=== PATIENT | female | born 1955 | race African-American/Black ===

== ENCOUNTER 2024-12-27 08:30 | Outpatient (CLI) | payer MEDICARE, SELFPAY ==
--- NOTE | 2024-12-27 08:30 | ECG_ITS ---
Test Date: 2024-12-27 09:21:19 Measurements Intervals [place] Rate: 80 P: 68 [place]: 127 QRS: 33 QRSD: 74 T: 220 QT: 360 QTc: 417 Interpretive Statements SINUS RHYTHM NONSPECIFIC ST & T-WAVE ABNORMALITY No previous ECG available for comparison Electronically Signed On 12-27-2024 10:29:15 CDT by Janey Macias M.D.
--- OUTSIDE RECORDS SUMMARY | 2024-12-27 08:54 | XMS_ITS | Clinical Summary ---
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 [phone] Michelle CaoW Unavailable Allergies No known active allergies Medications OneTouch Verio test strips strip Active OneTouch Verio Flex meter misc Active OneTouch Delica Plus Lancet 33 gauge misc 024 Active blood-glucose meter,continuous ([employer] G7 Die Holder) mis 1 each continuously 1 each 024 Active aspirin 81 mg chewable tablet Take 1 tablet (81 mg total) by mouth daily 90 tablet 2 Active glucagon 1 mg/0.2 mL auto-injector Inject 1 each under the skin daily as needed (low blood sugar) 0.6 mL 1 Active multivitamin with minerals tablet Take 1 tablet by mouth daily Active ferrous sulfate 325 mg (65 mg of elemental iron) tabletIndication s:Iron Deficiency Anemia Take 1 tablet (325 mg total) by mouth daily with breakfast 90 tablet 3 024 2024 Active furosemide (LASIX) 40 mg tablet TAKE 1 TABLET (40 MG TOTAL) BY MOUTH DAILY NEEDED (LOWER EXTREMITY SWELLING) 90 tablet 1 025 Active buPROPion XL (WELLBUTRIN XL) 150 mg 24 hr tablet Take 1 tablet (150 mg total) by mouth daily 90 tablet 1 025 Active calcitRIOL (ROCALTROL) 0.25 mcg capsuleIndicatio ns:Hyperparathyr oidism Secondary to Chronic Renal Failure Take 1 capsule (0.25 mcg total) by mouth 3 (three) times a week 36 capsule 025 2025 Active cholecalciferol (VITAMIN D-3) 2000 unit capsule Take 1 capsule (2,000 Units total) by mouth daily 90 capsule 3 025 2025 Active metoclopramide (REGLAN) 5 mg tablet Take 2 tablets (10 mg total) by mouth 2 (two) times a day 360 tablet 1 Active folic acid (FOLVITE) 1 mg tablet Take 1 tablet (1 mg total) by mouth daily 90 tablet 1 025 Active atorvastatin (LIPITOR) 80 mg tabletIndication s:Type 2 diabetes mellitus with hyperlipidemia (HCC) Take 1 tablet (80 mg total) by mouth daily 90 tablet 4 025 2025 Active spironolactone (ALDACTONE) 25 mg tabletIndication s:Chronic diastolic congestive heart failure (HCC) Take 2 tablets (50 mg total) by mouth 2 (two) times a day 360 tablet 1 025 Active acetaminophen (TYLENOL) 325 mg tabletIndication s:Fever,Pain Take 2 tablets (650 mg total) by mouth every 4 (four) hours as needed for pain, headaches or fever 025 Active amLODIPine (NORVASC) 10 mg tablet Take 1 tablet (10 mg total) by mouth daily 90 tablet 1 025 Active blood-glucose sensor ([employer] G7 Sensor) device APPLY ONE SENSOR TO SKIN EVERY 10 DAYS FOR BLOOD SUGAR MONITORING 5 each 3 025 Active sod sulf-pot chloride-mag sulf (Sutab) 1.479-0.188- 0.225 gram tabletIndication s:Screening for colon cancer Take as directed by GI office for colonoscopy prep. Stay well hydrated. 24 tablet 025 Active Additional Information Patient not taking.Reported on 12/08/2024 dulaglutide (TRULICITY) 0.75 mg/0.5 mL pen injectorIndicati ons:cardiovascul ar disease associated with T2DM,type 2 diabetes mellitus Inject 0.5 mL (0.75 mg total) under the skin every 7 days 6 mL 1 Active insulin lispro (HumaLOG, ADMELOG) 100 unit/mL pen for injectionIndicat ions:type 2 diabetes mellitus Sliding scale for elevated blood sugars. Use as needed. For blood sugar less than/equal to 70 treat hypoglycemia; 71-119 No additional insulin; 120-150 give 2 units; 151-200 give 4 units; 201-250 give 6 units; 251-300 give 8 units; 301-350 give 10 units; Greater than 351 give 12 units. 3 mL 1 Active polyethylene glycol (MIRALAX) 17 gram/dose bulk powder Take 17 g by mouth daily 1530 g 3 025 2025 Active Additional Information Patient taking differently:17 g oralDaily PRN, Reported on 12/08/2024 sertraline (ZOLOFT) 100 mg tablet Take 1 tablet (100 mg total) by mouth daily 90 tablet Active doxazosin (CARDURA) 8 mg tablet Take 1 tablet (8 mg total) by mouth nightly 90 tablet 3 025 2025 Active miscellaneous medical supply miscIndications: History of fall,Urinary incontinence, unspecified type,Current severe episode of major depressive disorder without psychotic features without prior episode (HCC),Cognitive impairment,Decre ased social interaction,Hist ory of CVA (cerebrovascular accident),Genera lized weakness,Depende nt for wheelchair mobility,Frailty ,Moderate protein-calorie malnutrition Sit to stand lift 1 each Active metoprolol tartrate (LOPRESSOR) 50 mg immediate release tablet TAKE 1 TABLET BY MOUTH TWICE A DAY 60 tablet 1 Active gabapentin (NEURONTIN) 300 mg capsuleIndicatio ns: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) TAKE 1 CAPSULE BY MOUTH EVERY DAY AT NIGHT 30 capsule 1 Active sertraline (ZOLOFT) 100 mg tablet Take 1 tablet (100 mg total) by mouth daily 90 tablet 1 025 2024 Discontinued( Reorder) nystatin cream Apply topically 2 (two) times a day APPLY TO AFFECTED AREA 2024 Discontinued gabapentin (NEURONTIN) 300 mg capsuleIndicatio ns:Neuropathic Pain Take 1 capsule (300 mg total) by mouth nightly 30 capsule 2 025 2024 Discontinued doxazosin (CARDURA) 4 mg tablet Take 1 tablet (4 mg total) by mouth nightly 025 2024 Discontinued( Reorder) senna-docusate (PERICOLACE) 8.6-50 mg Take 2 tablets by mouth daily X 3 days and then 1 tablet x 5 days 11 tablet 025 2024 Discontinued glycerin suppository Insert 1 suppository into the rectum daily as needed for constipation 20 suppository 025 2024 Discontinued metoprolol tartrate (LOPRESSOR) 50 mg immediate release tablet TAKE 1 TABLET BY MOUTH TWICE A DAY 60 tablet 1 025 2024 Discontinued linaCLOtide (Linzess) 145 mcg capsuleIndicatio ns:chronic idiopathic constipation Take 1 capsule (145 mcg total) by mouth daily 90 capsule 1 [address] (CYMBALTA) 30 mg capsuleIndicatio ns: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 Continue healthy lifestyle to maintain. Poor appetite 12/08/2024 Assessment & Plan (12/09/2024 5:31 PM CDT): Continue Ensure shakes 3-4 times daily Decreased social interaction 10/21/2024 Assessment & Plan (12/09/2024 5:31 PM CDT): The patient requires a Clemente or similar lift device due to debility related to history of fall and generalized weakness. Patient requires lift device for transfers between bed, chair, wheelchair, and/or commode and would be confined to bed without the use of a lift. Constipation 09/21/2024 Assessment & Plan (12/06/2024 3:20 PM CDT): Was having complaints of chronic constipation was seen by primary care physician who started her on daily MiraLax. She was then also sent a prescription for 145 mcg of daily Linzess but daughter who was present states that she has not started her on medication has the MiraLax has been working out well. Currently having a daily soft formed stool. Previous colonoscopy performed on 10/05/2024 showed a tubular adenoma in the transverse colon, diverticulosis, internal hemorrhoids. 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 Recommended repeat colonoscopy in 5 years -Repeat colonoscopy due September 2029 Body mass index (BMI) of 22.0-22.9 in adult 03/2024 Controlled type 2 diabetes with neuropathy 08/29 Assessment & Plan (12/09/2024 5:30 PM CDT): Chronic and stable Continue gabapentin 300 mg nightly Assessment & Plan (10/03/2024 6:54 PM CDT): Chronic and stable Continue gabapentin 300 mg nightly Assessment & Plan (08/29/2024 8:11 AM CDT): Chronic and stable Continue gabapentin 300 mg nightly Frailty 08/29/2024 Assessment & Plan (12/09/2024 5:30 PM CDT): The patient requires a Clemente or similar lift device due to debility related to history of fall and generalized weakness. Patient requires lift device for transfers between bed, chair, wheelchair, and/or commode and would be confined to bed without the use of a lift. 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 Patient requires lift device for transfers between bed, chair, wheelchair, and/or commode and would be confined to bed without the use of a lift. Subclinical hypothyroidism 08/29/2024 Assessment & Plan (12/09/2024 5:30 PM CDT): Will continue to monitor Assessment & Plan (08/29/2024 8:22 AM CDT): Will continue to monitor Moderate protein-calorie malnutrition 05/12/2024 Assessment & Plan (12/09/2024 5:31 PM CDT): Continue Ensure shakes 3-4 times daily Monocytosis 05/10/2024 Assessment & Plan (05/10/2024 7:00 PM CLINICAL EDUCATION ASSISTANT): Concerning for possible new infection with left shift. Patient unable to provide much information except for reporting that she has emesis and vomiting of green bile. No other clinical findings on exam, abdomen not distended or painful/tender to palpation. We will check urine culture, blood culture. Repeat labs in a.m., if etiology remains unclear, may need to consider abdominal CT Nursing documented large BM on 05/09 Unintentional weight loss 05/06/2024 Assessment & Plan (05/06/2024 7:41 PM CLINICAL EDUCATION ASSISTANT): Patient being followed by registered dietitian, patient is at risk for malnutrition and has noted to have a 7.34% weight loss since admission. Patient was not well coming of any recommendations from dietitian. Is typically eating less than 50% of her meals, is taking 1 Nepro per day. Hyperparathyroidism 04/05/2024 Assessment & Plan (12/09/2024 5:29 PM CDT): Managed by Nephrology Currently on calcitriol 0.25 mcg 3 times daily and vitamin D3 2000 IU daily Assessment & Plan (10/03/2024 6:54 PM CDT): Managed by Nephrology Currently on calcitriol 0.25 mcg 3 times daily and vitamin D3 2000 IU daily Assessment & Plan (08/29/2024 7:55 AM CDT): Managed by Nephrology Currently on calcitriol 0.25 mcg 3 times daily and vitamin D3 2000 IU daily Current severe episode of ma zayda depressive disorder without psychotic features without prior episode 03/15/2024 Assessment & Plan (12/09/2024 5:29 PM CDT): Chronic and stable Continue Wellbutrin 150 mg daily Continue sertraline 100 mg daily The patient requires a Clemente or similar lift device due to debility related to history of fall and generalized weakness. Patient requires lift device for transfers between bed, chair, wheelchair, and/or commode and would be confined to bed without the use of a lift. Assessment & Plan (10/26/2024 12:16 PM CDT): Chronic and stable on Wellbutrin 150 mg daily and sertraline 100 mg daily Wheelchair ordered Assessment & Plan (10/03/2024 6:54 PM CDT): Chronic and stable on Wellbutrin 150 mg daily and sertraline 100 mg daily Follow-up 3 months Assessment & Plan (08/29/2024 7:56 AM CDT): Chronic and stable on Wellbutrin 150 mg daily and sertraline 100 mg daily. Assessment & Plan (05/09/2024 5:04 PM CLINICAL EDUCATION ASSISTANT): Patient remains withdrawn and depressed, we will increase sertraline to 100 mg daily. Continue supportive care, speech therapy. Assessment & Plan (03/15/2024 8:51 AM CLINICAL EDUCATION ASSISTANT): Start sertraline 25 mg nightly Medication and side effects reviewed Consider therapy Follow-up in 1 month Generalized weakness 02/16/2024 Assessment & Plan (12/09/2024 5:28 PM CDT): The patient requires a Clemente or similar lift device due to debility related to history of fall and generalized weakness. Patient requires lift device for transfers between bed, chair, wheelchair, and/or commode and would be confined to bed without the use of a lift. Assessment & Plan (10/26/2024 12:16 PM CDT): Wheelchair ordered Assessment & Plan (10/21/2024 12:12 PM CDT): Continue physical therapy Assessment & Plan (10/03/2024 6:54 PM CDT): Refer to home health physical therapy Assessment & Plan (04/23/2024 8:28 AM CLINICAL EDUCATION ASSISTANT): I endorse admission to alf care. The patient is at risk of injury, illness and a requirement for a higher level of care without this service. The patient needs assistance from the nurses and care team for all activities of daily living including dressing, hygeine of person and toilet, safe transfer and mobility, dietary needs, medication administration, and grooming. The patient will need physical and occupational therapy to progress to a safer level of care. Assessment & Plan (02/16/2024 10:16 AM CLINICAL EDUCATION ASSISTANT): Refer to PT/OT History of CVA (cerebrovascular accident) 2023 Assessment & Plan (12/09/2024 5:28 PM CDT): The patient requires a Clemente or similar lift device due to debility related to history of fall and generalized weakness. Patient requires lift device for transfers between bed, chair, wheelchair, and/or commode and would be confined to bed without the use of a lift. Assessment & Plan (10/26/2024 12:16 PM CDT): Wheelchair ordered Assessment & Plan (02/16/2024 10:16 AM CLINICAL EDUCATION ASSISTANT): Appointment with Neurology on 03/09 History of fall 02/12/2024 Assessment & Plan (12/08/2024 2:05 PM CDT): The patient requires a Clemente or similar lift device due to debility related to history of fall and generalized weakness. Patient requires lift device for transfers between bed, chair, wheelchair, and/or commode and would be confined to bed without the use of a lift. Assessment & Plan (10/26/2024 12:16 PM CDT): The patient requires a wheelchair due to debility related to comorbidities that limits their ability to complete activities of daily living such as dressing, cooking, and bathing in a reasonable time frame. The patient has sufficient upper extremity function to safely propel a wheelchair. The patient is willing and able to use a wheelchair. The patient's mobility limitation can't be resolved by an appropriately fitted cane or walker due to severe weakness and increased risk of falls. The patient's home can accommodate a wheelchair. Assessment & Plan (10/03/2024 6:54 PM CDT): Refer to home health physical therapy Assessment & Plan (05/03/2024 2:03 PM CLINICAL EDUCATION ASSISTANT): Pt with documented fall over the weekend. Pt denies pain or complaints. Monitor Assessment & Plan (02/12/2024 1:12 PM CLINICAL EDUCATION ASSISTANT): Fall today trying to get to bathroom byself. No injury. Fall prec/monitoring in place. Anemia 02/02/2024 Assessment & Plan (12/09/2024 5:26 PM CDT): Continue iron supplements Assessment & Plan (10/03/2024 6:53 PM CDT): Continue iron supplements Labs ordered Assessment & Plan (05/03/2024 2:05 PM CLINICAL EDUCATION ASSISTANT): Overall stable, H/H 9.2/28.9 Assessment & Plan (04/29/2024 1:48 PM CLINICAL EDUCATION ASSISTANT): Hemoglobin with slight decline from admission but overall stable, H&H 10.9/34.0 Assessment & Plan (04/23/2024 5:04 PM CLINICAL EDUCATION ASSISTANT): Hemoglobin lower but stable. H&H 10.7/34.1. We will continue to monitor, patient may need an outpatient GI follow-up. Assessment & Plan (02/02/2024 4:42 PM CLINICAL EDUCATION ASSISTANT): This is in part secondary to her chronic kidney disease stage 4. Also, her attending hospitalist has advised outpatient follow up that may or may not include colonoscopy. I have so advised her daughter. She explains that the primary physician had ordered a Cologuard testing prior to hospitalization, the daughter has a kit in hand, and plans to complete this once discharge. She understands the importance of following up with the primary care physician on this issue. Cognitive impairment 02/02/2024 Assessment & Plan (12/09/2024 5:27 PM CDT): Wheelchair bound Caregiver dependent Assessment & Plan (10/26/2024 12:16 PM CDT): Wheelchair ordered Assessment & Plan (10/21/2024 12:12 PM CDT): Refer to psychiatry Refer to neurology Assessment & Plan (10/03/2024 6:53 PM CDT): Managed by Neurology Assessment & Plan (08/29/2024 8:00 AM CDT): Managed by Neurology Assessment & Plan (05/06/2024 7:42 PM CLINICAL EDUCATION ASSISTANT): MOCA 09/22 Assessment & Plan (02/02/2024 4:43 PM CLINICAL EDUCATION ASSISTANT): Per speech therapy today's [place] score was 9 / 30. Daughter notes that her cognitive impairment has been present since the stroke. Chronic diastolic congestive heart failure 01/23 Assessment & Plan (12/09/2024 5:26 PM CDT): Managed by cardiology Chronic and stable on amlodipine 10 mg daily, Lasix 40 mg daily, spironolactone 25 mg daily, metoprolol 50 mg twice daily, and doxazosin 2 mg nightly. Assessment & Plan (10/03/2024 6:52 PM CDT): Managed by cardiology Chronic and stable on amlodipine 10 mg daily, Lasix 40 mg daily, spironolactone 25 mg daily, metoprolol 50 mg twice daily, and doxazosin 2 mg nightly. Follow up in 3 months Assessment & Plan (08/29/2024 8:01 AM CDT): Managed by cardiology Chronic and stable on amlodipine 10 mg daily, Lasix 40 mg daily, spironolactone 25 mg daily, metoprolol 50 mg twice daily, and doxazosin 2 mg nightly. Assessment & Plan (05/09/2024 5:03 PM CLINICAL EDUCATION ASSISTANT): Remains compensated, continue to hold spironolactone. Renal function and electrolytes have improved with IV fluids. Continue to monitor Assessment & Plan (04/23/2024 5:05 PM CLINICAL EDUCATION ASSISTANT): Currently compensated. We will place Aldactone on hold due to renal dysfunction. Continue Lasix p.r.n., continue to monitor electrolytes, renal function, weight Assessment & Plan (04/23/2024 8:27 AM CLINICAL EDUCATION ASSISTANT): This is currently stable. We will monitor vital signs. We will continue 40 mg furosemide daily p.r.n., metoprolol, and Aldactone. Assessment & Plan (02/16/2024 10:13 AM CLINICAL EDUCATION ASSISTANT): Chronic and stable Appointment with Cardiology on 02/24 Continue Coreg 25 mg twice daily Continue Jardiance 25 mg daily Continue furosemide 80 mg daily Continue spironolactone 25 mg daily Assessment & Plan (02/12/2024 1:11 PM CLINICAL EDUCATION ASSISTANT): Cardiology appt r/s with COVID +. She is compensated. Continue Jardiance, Coreg, Statin, ASA, Norvasc, Spirolactone. Lasix held with elevated GABRIELA. Remains compensated without. Repeat labs 02/15. Assessment & Plan (02/03/2024 12:35 PM CLINICAL EDUCATION ASSISTANT): Compensated. Continue Lasix, Spirolactone, Atorvastatin, Coreg. Assessment & Plan (02/02/2024 4:39 PM CLINICAL EDUCATION ASSISTANT): This is subacute but now stable. Continue carvedilol, atorvastatin, furosemide 80 mg daily, Aldactone 25 mg daily and monitor follow up labs Assessment & Plan (01/26/2024 8:24 AM CDT): Appointment with Cardiology 03/11/2024 Cardiac murmur 01/02/2024 Assessment & Plan (01/26/2024 8:23 AM CDT): Chest x-ray ordered Last TTE 01/02/2024 Appointment with Cardiology 03/11/2024 Assessment & Plan (01/02/2024 1:02 PM CDT): Refer to cardiology EKG and TTE ordered Urinary retention 12/11/2023 Assessment & Plan (10/03/2024 6:52 PM CDT): Urodynamic results printed for patient is started Follow up with Urology Assessment & Plan (04/26/2024 4:35 PM CLINICAL EDUCATION ASSISTANT): Luna in place, needed to be replaced today after having clogged with hematuria. Since change has been draining well with dark red urine. We will follow-up H&H in a.m., we will hold Lovenox but continue aspirin. Patient recently had a voiding trial performed by Urology as an outpatient on 04/12/2024 was unsuccessful, recommended continuing Luna catheter and follow-up for urodynamic studies. This is scheduled on 05/13/[address] [facility], would recommend keeping this appointment. We will continue Flomax Assessment & Plan (04/23/2024 8:28 AM CLINICAL EDUCATION ASSISTANT): She has an order to keep her Luna pending consult. This will be continued Assessment & Plan (02/16/2024 10:14 AM CLINICAL EDUCATION ASSISTANT): Appointment with Urology on 03/04 Continue Flomax 0.4 mg daily Assessment & Plan (02/13/2024 1:00 PM CLINICAL EDUCATION ASSISTANT): Voiding on own with mild retention not requiring ISC. Continue Flomax. Assessment & Plan (02/12/2024 1:05 PM CLINICAL EDUCATION ASSISTANT): Is voiding on her own. Continue Flomax. Assessment & Plan (02/09/2024 12:54 PM CLINICAL EDUCATION ASSISTANT): Patient removed luna herself this am. Denies pain. Bulb intact. Will start voiding trial & monitor. Assessment & Plan (02/05/2024 12:47 PM CLINICAL EDUCATION ASSISTANT): Failed voiding trial, increased Flomax to 0.8mg daily. Consider repeat voiding trial next week. Assessment & Plan (02/04/2024 2:59 PM CLINICAL EDUCATION ASSISTANT): RN reports urinary incontinence, bladder scan greater than 400 mL retention. Luna catheter anchored. Continue scripted tamsulosin Assessment & Plan (02/03/2024 12:29 PM CLINICAL EDUCATION ASSISTANT): Luna in place with Flomax. Pending labs will consider voiding trial later this week. Type 2 diabetes mellitus wit h hyperglycemia, with long-term current use of insulin 11/18/2023 Assessment & Plan (12/09/2024 5:26 PM CDT): Pending referral to endocrinology Current A1c 8.2 Continue insulin lispro with meals as needed Start Trulicity 0.75 mg weekly Medication and side effects reviewed Low carb diet, count calories, exercise reviewed, blood glucose monitoring A1C goal is less than 8. Optho/ reviewed Dental/ reviewed Pod/ PN/ Foot exam/ reviewed Discussed routine labs; A1c, albumin/reatine ratio, GFR Visit [email or web address] for more information regarding diabetes diet and more. Assessment & Plan (10/26/2024 12:17 PM CDT): Pending referral to endocrinology Current A1c 8.2 Continue insulin lispro with meals as needed Start Trulicity 0.75 mg weekly Medication and side effects reviewed Low carb diet, count calories, exercise reviewed, blood glucose monitoring A1C goal is less than 8. Optho/ reviewed Dental/ reviewed Pod/ PN/ Foot exam/ reviewed Discussed routine labs; A1c, albumin/reatine ratio, GFR Visit [email or web address] for more information regarding diabetes diet and more. Assessment & Plan (10/21/2024 12:12 PM CDT): Refer to endocrinology Current A1c 8.2 Continue insulin lispro with meals as needed Start Trulicity 0.75 mg weekly Medication and side effects reviewed Low carb diet, count calories, exercise reviewed, blood glucose monitoring A1C goal is less than 8. Optho/ reviewed Dental/ reviewed Pod/ PN/ Foot exam/ reviewed Discussed routine labs; A1c, albumin/reatine ratio, GFR Visit [email or web address] for more information regarding diabetes diet and more. Follow up in 3 months Assessment & Plan (08/29/2024 8:17 AM CDT): Diet-controlled Last A1c 7.1 on 07/24/2024 Lantus discontinued 06/2024 due to weight loss and decreased dietary intake Jardiance discontinued due to UTI Assessment & Plan (05/11/2024 10:45 AM CLINICAL EDUCATION ASSISTANT): A1c 11.3, blood sugars ranging from 123 to 244. Patient has had minimal use of sliding scale insulin. Continue Jardiance 25 mg daily, Lantus will remain on hold Assessment & Plan (04/26/2024 4:28 PM CLINICAL EDUCATION ASSISTANT): A1c 11.3, Accu-Cheks ranging from 117-282. A.m. blood sugars controlled., but elevate during the day. Previously patient taking Jardiance 25 mg daily, had also been on routine Lantus. Glargine has been on hold since 04/24/2024 for hypoglycemia. We will restart Jardiance, monitor blood sugars, continue sliding scale insulin with meals for now. Assessment & Plan (04/23/2024 8:27 AM CLINICAL EDUCATION ASSISTANT): Follow up labs will be ordered. We will continue insulin glargine and sliding scale insulin lispro in the short term. Assessment & Plan (04/23/2024 8:22 AM CLINICAL EDUCATION ASSISTANT): We will continue scripting her insulin glargine and sliding scale insulin. The nurses will monitor point of care glucose Assessment & Plan (02/16/2024 10:09 AM CLINICAL EDUCATION ASSISTANT): Lantus was discontinued during hospitalization Continue Jardiance 25 mg daily Continue insulin lispro 3 times daily with meals Appointment with endocrinology on 03/11 Labs ordered Assessment & Plan (02/13/2024 1:00 PM CLINICAL EDUCATION ASSISTANT): A1c 6.9. Patient taking Lantus 10u nightly, continue & dc SSI at discharge. Continue Jardiance. FU with PCP. Assessment & Plan (02/12/2024 1:08 PM CLINICAL EDUCATION ASSISTANT): BS stable, 199-211. Continue Lantus with SSI. Assessment & Plan (02/09/2024 1:02 PM CLINICAL EDUCATION ASSISTANT): Orginally hypoglycemic on admission. Insulin adjusted. She denies she was taking inuslin at home but does not appear new med. BS now elevated. 160-360. Currently only on SSI. On Lantus 10u qhs. Restart Jardiance 25mg daily for CHF not glycemic control & Lantus, monitor. Assessment & Plan (02/03/2024 12:31 PM CLINICAL EDUCATION ASSISTANT): A1c 6.9. BS 155-239. Continue on SSI. Pending labs may restart Jardiance. Assessment & Plan (02/02/2024 4:39 PM CLINICAL EDUCATION ASSISTANT): This is currently stable. Follow up labs were ordered. Continue insulin lispro by sliding scale Assessment & Plan (01/26/2024 8:23 AM CDT): Chronic and stable on current medication regimen A1c 6.9 Continue current medication regimen Assessment & Plan (11/18/2023 3:06 PM CDT): Chronic and improving Appointment with endocrinology on 12/29 Continue current medication regimen Refills sent to pharmacy Continue monitoring blood glucose Continue to check feet daily Recommend annual vision exams with retinal screening Glucagon sent to pharmacy. Reviewed medication and appropriate use. Follow-up in 3 months Urinary incontinence 10/16/2023 Assessment & Plan (12/09/2024 5:24 PM CDT): Urogynecology plans for permanent indwelling urinary catheter Assessment & Plan (10/21/2024 12:10 PM CDT): Sign release of information to obtain urology records Assessment & Plan (10/03/2024 6:52 PM CDT): Urodynamic results printed for patient is started Follow up with Urology Go online to order aeroflow incontinence supplies Assessment & Plan (08/29/2024 8:02 AM CDT): Pending referral to Urology Urodynamics report in patient's chart under media tab dated 06/03/2024 Assessment & Plan (02/16/2024 10:14 AM CLINICAL EDUCATION ASSISTANT): Appointment with urology 03/04 Pelvic floor physical therapy completed Assessment & Plan (11/18/2023 2:58 PM CDT): Managed by Urology Assessment & Plan (10/16/2023 2:37 PM CDT): Refer to urology Please send a [facility] message with the medication and dosage the patient is currently taking for urinary incontinence Follow-up in 1 month Unspecified age-related cataract 06/27/2020 Overview (10/16/2023): The patient was examined, the H and P and other relevant medical records were reviewed. No changes that are significant for the planned course of treatment have occurred. HOLLY SMITH MD, 06/27/2020, 7:48 AM CDT The patient was examined, the H and P and other relevant medical records were reviewed. No changes that are significant for the planned course of treatment have occurred. HOLLY SMITH MD, 07/11/2020, 7:59 AM CDT Hypertension associated with type 2 diabetes marianela litus 02/22/2014 Assessment & Plan (12/09/2024 5:22 PM CDT): Managed by cardiology Chronic and controlled Continue amlodipine 10 mg daily, Lasix 40 mg daily, spironolactone 25 mg daily, metoprolol 50 mg twice daily, and doxazosin 2 mg nightly. Assessment & Plan (10/26/2024 12:17 PM CDT): Chronic and controlled Continue amlodipine 10 mg daily, Lasix 40 mg daily, spironolactone 25 mg daily, metoprolol 50 mg twice daily, and doxazosin 2 mg nightly. Assessment & Plan (10/21/2024 12:06 PM CDT): Chronic and controlled Continue amlodipine 10 mg daily, Lasix 40 mg daily, spironolactone 25 mg daily, metoprolol 50 mg twice daily, and doxazosin 2 mg nightly. Follow up in 3 months Assessment & Plan (10/03/2024 6:49 PM CDT): Chronic and controlled Continue amlodipine 10 mg daily, Lasix 40 mg daily, spironolactone 25 mg daily, metoprolol 50 mg twice daily, and doxazosin 2 mg nightly. Follow up in 3 months Assessment & Plan (08/29/2024 8:04 AM CDT): Chronic and controlled Continue amlodipine 10 mg daily, Lasix 40 mg daily, spironolactone 25 mg daily, metoprolol 50 mg twice daily, and doxazosin 2 mg nightly. Assessment & Plan (05/11/2024 10:44 AM CLINICAL EDUCATION ASSISTANT): Urgency - will give additional dose of lopressor 25mg x 1, increased routine dose to 50mg BID. Continue norvasc.Recheck vitals, may need to consider additional agent if remains uncontrolled. Assessment & Plan (05/10/2024 7:04 PM CLINICAL EDUCATION ASSISTANT): Verbal report from nurse indicates that blood pressure had improved from this a.m. after a.m. medication dosing. No emesis yet this a.m.. Continue amlodipine 10 mg daily, Lasix 40 mg daily, metoprolol 25 mg b.i.d. Assessment & Plan (05/09/2024 5:02 PM CLINICAL EDUCATION ASSISTANT): BP stable, continue metoprolol 25 mg b.i.d., amlodipine 10 mg daily, Lasix 40 mg daily p.r.n.. Spironolactone remain on hold. Assessment & Plan (04/26/2024 4:25 PM CLINICAL EDUCATION ASSISTANT): Blood pressure is generally well controlled, continue amlodipine 10 mg daily, Lasix 40 mg daily p.r.n., metoprolol 25 mg b.i.d.. Spironolactone on hold Assessment & Plan (04/23/2024 8:26 AM CLINICAL EDUCATION ASSISTANT): This is chronic and stable. Continue to monitor serial vital signs continue scripting of amlodipine, metoprolol, Aldactone Assessment & Plan (02/16/2024 10:13 AM CLINICAL EDUCATION ASSISTANT): Chronic and stable Appointment with Cardiology on 02/24 Continue Coreg 25 mg twice daily Continue Jardiance 25 mg daily Continue furosemide 80 mg daily Continue spironolactone 25 mg daily Assessment & Plan (02/02/2024 4:38 PM CLINICAL EDUCATION ASSISTANT): This is chronic and stable. Continue amlodipine 5 mg daily, carvedilol 25 mg b.i.d., Lasix, and Aldactone 25 mg daily Assessment & Plan (01/26/2024 8:27 AM CDT): Chronic and stable on current medication regimen Continue amlodipine as prescribed Goal blood pressure is less than 140/90. Recommend DASH diet to reduce sodium/salt in diet. Recommend 150 min of moderate aerobic exercise weekly as tolerated. Visit www.heart.org for more information on diet and lifestyle to improve blood pressure for heart health. Assessment & Plan (11/18/2023 3:07 PM CDT): Chronic and stable on current medication regimen Continue amlodipine as prescribed Goal blood pressure is less than 140/90. Recommend DASH diet to reduce sodium/salt in diet. Recommend 150 min of moderate aerobic exercise weekly as tolerated. Visit www.heart.org for more information on diet and lifestyle to improve blood pressure for heart health. F/u in 3 months Assessment & Plan (10/16/2023 2:37 PM CDT): Currently chronic and stable Continue current regimen as prescribed. Goal blood pressure is less than 140/90. Recommend DASH diet to reduce sodium/salt in diet. Recommend 150 min of moderate aerobic exercise weekly as tolerated. Visit www.heart.org for more information on diet and lifestyle to improve blood pressure for heart health. Chronic kidney disease, stage 4 (severe) Overview (10/16/2023): stage 4 Assessment & Plan (12/09/2024 5:23 PM CDT): Managed by Nephrology Chronic and stable Jardiance was discontinued 02/2024 due to urinary tension and hypoglycemia Assessment & Plan (10/03/2024 6:50 PM CDT): Managed by Nephrology Assessment & Plan (08/29/2024 8:10 AM CDT): Assessment & Plan (05/11/2024 10:46 AM CLINICAL EDUCATION ASSISTANT): Relatively unchanged, BUN/creatinine 22/1.53, GFR 37 Assessment & Plan (05/03/2024 2:04 PM CLINICAL EDUCATION ASSISTANT): Renal function about at baseline, Bun/Cr 20/1.59, GFR 35. Continue to monitor Assessment & Plan (04/29/2024 1:48 PM CLINICAL EDUCATION ASSISTANT): Overall stable, BUN/creatinine 35/1.64 with a GFR of 34 Assessment & Plan (04/26/2024 4:29 PM CLINICAL EDUCATION ASSISTANT): Labs were not performed as ordered, we will follow-up in a.m. Assessment & Plan (04/23/2024 5:02 PM CLINICAL EDUCATION ASSISTANT): Renal function overall stable, BUN/creatinine 26/1.47 with a GFR of 39. Continue to monitor Assessment & Plan (04/23/2024 8:28 AM CLINICAL EDUCATION ASSISTANT): Follow up labs to be ordered Assessment & Plan (02/13/2024 1:01 PM CLINICAL EDUCATION ASSISTANT): Stable. Lasix dc with elevated Cr. CHF, CKD, Edema stable without. Continue routine monitoring with PCP. Assessment & Plan (02/09/2024 12:55 PM CLINICAL EDUCATION ASSISTANT): Cr improved. She has no signs of overload. Continue to hold Lasix. Repeat labs. Monitor. Assessment & Plan (02/05/2024 12:49 PM CLINICAL EDUCATION ASSISTANT): Cr mildly elevated. Will hold Lasix. Continue all other meds & monitor. Repeat labs 02/08. Assessment & Plan (02/03/2024 12:27 PM CLINICAL EDUCATION ASSISTANT): Labs pending 02/04. Assessment & Plan (01/02/2024 1:01 PM CDT): BMP ordered Assessment & Plan (11/18/2023 3:01 PM CDT): Managed by Nephrology Assessment & Plan (10/16/2023 2:37 PM CDT): Referred to nephrology Type 2 diabetes mellitus with hyperlipidemia Assessment & Plan (12/09/2024 5:24 PM CDT): Chronic and controlled Continue atorvastatin 80 mg daily Assessment & Plan (10/21/2024 12:10 PM CDT): Chronic and controlled Continue atorvastatin 80 mg daily Follow-up in 3 months Assessment & Plan (10/03/2024 6:51 PM CDT): Chronic and uncontrolled Continue atorvastatin 80 mg daily Consider Repatha Labs ordered Follow-up in 3 months Assessment & Plan (08/29/2024 8:09 AM CDT): Chronic and uncontrolled Increase to atorvastatin 80 mg daily Consider Repatha Resolved Problems Problem Noted Date Diagnosed Date Resolved Date Fecal impaction 10/26/2024 12/08/2024 Assessment & Plan (12/06/2024 3:20 PM CDT): Presented to ED on 10/21 with as she had not had a bowel movement for two weeks. Imaging showed prominent stool throughout colon. She was disimpacted and then started on laila Colace as well as MiraLax. Her daughter who was present with her now states that she is doing relatively well on daily dose of MiraLax. -Recommended to continue daily MiraLax Assessment & Plan (10/26/2024 12:19 PM CDT): Refer to gastroenterology Try [id number] normal saline enema and magnesium citrate Continue MiraLax and fiber supplements as previously recommended Follow up as needed Decreased frequency of bowel movements 10/21/2024 12/08/2024 Assessment & Plan (10/21/2024 12:14 PM CDT): Patient's family advised to take patient to the emergency department Labile blood glucose 10/21/2024 025 Decreased bowel sounds 10/21/202412/08 Assessment & Plan (10/21/2024 12:15 PM CDT): Patient's family advised to take patient to the emergency room Pressure injury of buttock, stage 2 10/03/2024 12/09/2024 Assessment & Plan (10/21/2024 12:14 PM CDT): Improving Continue home health Make sure to patient's position every 2 hours Assessment & Plan (10/03/2024 6:56 PM CDT): Refer to home health Rectal bleeding 09/21/2024 12/09/2024 Sepsis with acute renal fail ure without septic shock, due to unspecified organism, unspecified acute renal failure type 09/19/202401/2025 Hypoxemia 05/13/2024 12/09/2024 Stercoral colitis 05/13/2024 12/09/2024 Influenza A 05/12/2024 12/09/2024 Influenza 05/11/2024 12/09/2024 Urinary tract infection asso ciated with indwelling urethral catheter 04/29/2024 12/09/2024 Assessment & Plan (05/03/2024 2:10 PM CLINICAL EDUCATION ASSISTANT): Urine culture without growth. Antibiotics DC'd, catheter remains in place. No longer have hematuria or blood in diaper Assessment & Plan (04/29/2024 1:47 PM CLINICAL EDUCATION ASSISTANT): With significant hematuria. Patient has andreia blood coming out around catheter as well as in catheter - patient denies pain. Started on Keflex by emergency department, we will follow-up on urine culture. Encourage staff to monitor for clotting of catheter to avoid retention. Encourage p.o. fluid intake. Nausea and vomiting 04/23/2024 12/10/19 Assessment & Plan (05/11/2024 10:48 AM CLINICAL EDUCATION ASSISTANT): Exam is benign, with leukocytosis, WBC 17.8. Pt has had similar c/o in past with unrevealing workup. Will check UA, Blood cx, CT abd/pel. Influenza/COVID swab neg x 2 (pt with known exposure) Continue reglan 10mg BID, prn zofran. Assessment & Plan (05/10/2024 7:19 PM CLINICAL EDUCATION ASSISTANT): Previous workup for same symptoms was unrevealing, we will increase metoclopramide to 10 mg b.i.d., continue supportive IV fluid. Continue symptomatic Zofran. We will hold nonessential medications including folic acid, ferrous sulfate, multivitamin, vitamin-D. Assessment & Plan (04/23/2024 5:00 PM CLINICAL EDUCATION ASSISTANT): Now resolved, no leukocytosis patient was afebrile, amylase only mildly elevated, lipase within normal limits. GI symptoms have resolved, exam unrevealing. Currently doubt acute cholecystitis, possible biliary colic. Does have some constipation as well and concern for gastroparesis. We will start Reglan 5 mg b.i.d. continue to monitor for dehydration. Tolerated 1 L normal saline well Assessment & Plan (04/23/2024 8:21 AM CLINICAL EDUCATION ASSISTANT): Stat labs ordered to include a CBC, basic metabolic profile, amylase and lipase. IV of normal saline 83 cc/hour x1 L ordered. Given the known presence of cholelithiasis acute cholecystitis is currently the working diagnosis pending further development. Dehydration 04/23/2024 12/09/2024 Assessment & Plan (04/23/2024 8:22 AM CLINICAL EDUCATION ASSISTANT): Her urine output is reduced. She is not eating or drinking secondary to her nausea and vomiting. An IV of normal saline as ordered. We will also continue her scripting of ondansetron. Weakness 04/13/2024 12/08/2024 Elevated LFTs 04/13/2024 12/09/2024 Acute lower urinary tract infection 03/17/2024 04/23/2024 Vitamin D deficiency 02/16/2024 025 Assessment & Plan (08/29/2024 7:57 AM CDT): Continue [id number] vitamin-D 3 2000 IU daily Assessment & Plan (02/16/2024 10:15 AM CLINICAL EDUCATION ASSISTANT): Continue [id number] vitamin-D 3 5000 IU daily Labs ordered COVID-19 02/04/2024 12/09/2024 Assessment & Plan (02/13/2024 1:01 PM CLINICAL EDUCATION ASSISTANT): Completed Antiviral. Off Isolation 02/13. Assessment & Plan (02/12/2024 1:11 PM CLINICAL EDUCATION ASSISTANT): Sx remain mild and stable. Mucinex started 02/10 for congestion. Assessment & Plan (02/09/2024 12:56 PM CLINICAL EDUCATION ASSISTANT): Continue antiviral. Dx 02/03. Assessment & Plan (02/05/2024 12:49 PM CLINICAL EDUCATION ASSISTANT): Continue antiviral with monitoring. Denies sx. WBC elevated which is abnormal. Assessment & Plan (02/04/2024 3:00 PM CLINICAL EDUCATION ASSISTANT): I did not order Paxlovid because of her GFR. Her medical power of criminal attorney does request treatment. I have ordered molnupiravir x 5 days. Indwelling urinary catheter present 02/03/2024 02/12/2024 Acute kidney injury superimp osed on chronic kidney disease 01/27/2024 02/03/2024 Bilateral lower extremity edema 01/02/2024 02/03/2024 Assessment & Plan (01/26/2024 8:24 AM CDT): Improved Continue Lasix 20 mg daily Appointment with Cardiology 03/11/2024 Assessment & Plan (01/02/2024 1:02 PM CDT): Take furosemide 20 mg once daily for 5 days as prescribed BMP ordered Refer to cardiology EKG and TTE ordered Follow-up in 2 weeks Pain of left breast 01/02/2024 12/10/19 25 Assessment & Plan (01/02/2024 1:02 PM CDT): Diagnostic mammogram and ultrasound ordered for bilateral breasts Breast asymmetry 01/02/2024 12/09/2024 Assessment & Plan (01/02/2024 1:02 PM CDT): Diagnostic mammogram and ultrasound ordered for bilateral breasts Candidiasis, intertriginous 01/02/2024 12/09/2024 Assessment & Plan (01/26/2024 8:27 AM CDT): Improved Continue current treatment regimen Wash towards torso with Selsun blue shampoo Apply nystatin cream beneath breasts twice daily Apply nystatin powder over cream beneath breasts twice daily Keep area clean and dry Place a clean cotton T-shirt beneath the breasts Refrain from using heat pad Assessment & Plan (01/02/2024 1:07 PM CDT): Culture collected Take terbinafine 250 mg daily for 14 days Take ciprofloxacin 500 mg daily for 10 days Wash towards torso with Selsun blue shampoo Apply nystatin cream beneath breasts twice daily Apply nystatin powder over cream beneath breasts twice daily Keep area clean and dry Place a clean cotton T-shirt beneath the breasts Refrain from using heat pad Follow-up in 2 weeks Left upper extremity swelling 01/02/2024 12/09/2024 Assessment & Plan (02/16/2024 10:14 AM CLINICAL EDUCATION ASSISTANT): CTA of head and neck ordered Assessment & Plan (02/13/2024 1:01 PM CLINICAL EDUCATION ASSISTANT): Her discharging hospitalist notes chronic swelling of the left breast and left upper extremity. A previous outpatient workup for malignancy has been benign. The hospitalist has advised follow up with PCP post skilled care discharge for further evaluation that may or may not include a CT of the head and neck. The daughter is so advised and she endorses understanding. Assessment & Plan (02/02/2024 4:40 PM CLINICAL EDUCATION ASSISTANT): Her discharging hospitalist notes chronic swelling of the left breast and left upper extremity. A previous outpatient workup for malignancy has been benign. The hospitalist has advised follow up with PCP post skilled care discharge for further evaluation that may or may not include a CT of the head and neck. The daughter is so advised and she endorses understanding. Assessment & Plan (01/02/2024 1:09 PM CDT): Take furosemide 20 mg once daily for 5 days as prescribed BMP ordered Refer to cardiology EKG and TTE ordered Follow-up in 2 weeks Decreased muscle strength 11/18/2023 Assessment & Plan (11/18/2023 3:03 PM CDT): Refer to home PT/OT Memory loss 10/16/2023 02/03/2024 Assessment & Plan (11/18/2023 3:02 PM CDT): Place new referral to Neurology Cerebrovascular accident (CVA) 07/31/2020 02/16/2024 Assessment & Plan (02/03/2024 12:26 PM CLINICAL EDUCATION ASSISTANT): H/o. Continue PT/OT/ST. Flat affect. Pending cognition score from YOKER MACHINE OPERATOR. Assessment & Plan (02/02/2024 4:41 PM CLINICAL EDUCATION ASSISTANT): This is remote, currently stable. Continue aspirin, atorvastatin. Assessment & Plan (11/18/2023 3:02 PM CDT): Place new referral to Neurology Assessment & Plan (10/16/2023 2:36 PM CDT): Refer to neurology Request [facility] medical records from [facility] in [place], [place] Continue taking baby aspirin Poorly controlled diabetes mellitus 02/08/2014 02/09/2024 Assessment & Plan (10/16/2023 2:36 PM CDT): Increase Lantus to 10 units nightly Restart Jardiance 25 mg Reviewed medications and side effects Refer to endocrinology Dexcom G7 kit ordered F/u in 1 month Anxiety disorder 05/24/2013 10/21/2024 Assessment & Plan (02/16/2024 10:11 AM CLINICAL EDUCATION ASSISTANT): Appointment with Nephrology 03/30 Assessment & Plan (11/18/2023 2:59 PM CDT): Doing well without medication Hyperlipidemia 12/09/2024 Assessment & Plan (08/29/2024 8:03 AM CDT): Chronic and uncontrolled Increase to atorvastatin 80 mg daily Consider Repatha Assessment & Plan (04/23/2024 8:27 AM CLINICAL EDUCATION ASSISTANT): This is a chronic but stable problem. Continue scripting of Crestor, dietary will see and follow. Assessment & Plan (02/16/2024 10:08 AM CLINICAL EDUCATION ASSISTANT): Chronic and stable Continue atorvastatin 80 mg nightly Labs ordered Follow-up in 2 months Assessment & Plan (02/02/2024 4:38 PM CLINICAL EDUCATION ASSISTANT): This is chronic and stable continue atorvastatin 80 mg HS daily Assessment & Plan (11/18/2023 2:58 PM CDT): Repeat labs scheduled for 01/15 Continue current medication regimen Continue to make dietary improvement Follow-up in 3 months Assessment & Plan (10/16/2023 2:38 PM CDT): Labs ordered Continue taking Lipitor 80 mg daily as prescribed Visit www.heart.org for dietary information Follow-up in 1 month Encounters Date Type Department Care Team Description 12/21/2024 9:30 AM CDT Therapy [facility] OP Speech Therapy [address] [place] [id number] Shadia Clements, YOKER MACHINE OPERATOR Oropharyngeal dysphagia (Primary Dx); At risk for aspiration 12/10/[address] [place] [address] Yolanda Damon DNP 12/08/2024 1:30 PM CDT Office Visit [address] [place] [address] Yolanda Damon DNP Medicare annual wellness visit, subsequent (Primary Dx); History of fall; Dependent for wheelchair mobility; Type 2 diabetes mellitus with hyperglycemia, with long-term current use of insulin (HCC); Hypertension associated with type 2 diabetes mellitus (HCC); Type 2 diabetes mellitus with stage 4 chronic kidney disease, without long-term current use of insulin (HCC); 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); Type 2 diabetes mellitus with cardiac complication (HCC); Urinary incontinence, unspecified type; Chronic diastolic congestive heart failure (HCC); Hyperparathyroidism; Subclinical hypothyroidism; Anemia, unspecified type; Current severe episode of major depressive disorder without psychotic features without prior episode (HCC); At risk for aspiration; Cognitive impairment; Decreased social interaction; Generalized weakness; Frailty; Poor appetite; Moderate protein-calorie malnutrition; History of CVA (cerebrovascular accident); BMI 22.0-22.9, adult 12/06/2024 2:30 PM CDT Office Visit [facility] at [address] [phone] Shannan Fortune NP Personal history of adenomatous and serrated colon polyps (Primary Dx); Constipation, unspecified constipation type; Fecal impaction (HCC) 12/02/2024 3:15 PM CDT Office Visit [facility] at [address] [phone] Jass Nicolas MD Stage 4 chronic kidney disease (HCC) (Primary Dx); Hemiplegia and hemiparesis following cerebral infarction affecting right dominant side (I69.351); Essential hypertension; Type 2 diabetes mellitus with diabetic chronic kidney disease, unspecified CKD stage, unspecified whether skilled nursing insulin use (HCC); History of CVA (cerebrovascular accident); Incomplete bladder emptying; Secondary hyperparathyroidism 11/23/[address] [place] [phone] Yolanda Damon DNP 11/22/[address] [place] [phone] Yolanda Damon DNP set up established appointment within next week 11/22/[address] [place] [phone] Yolanda Damon DNP DME request 11/22/[address] [place] [phone] Yolanda Damon DNP Annual Wellness Visit 11/16/2024 2:30 PM CDT Office Visit [facility] [address] [place] [phone] Renaldo Armendariz MD Urinary tract infection associated with indwelling urethral catheter, subsequent encounter (Primary Dx); Chronic kidney disease, stage 4 (severe) (HCC); Type 2 diabetes mellitus with hyperglycemia, with long-term current use of insulin (HCC); Urinary retention; Dependent for wheelchair mobility; Cognitive impairment 11/15/2024 8:00 AM CDT Clinical Support [facility] [address] [facility] [address] [place] [address] Manuel Jaeger, PhD Major neurocognitive disorder (HCC) (Primary Dx); Generalized anxiety disorder; History of CVA (cerebrovascular accident); Current severe episode of major depressive disorder without psychotic features without prior episode (HCC); Mild cognitive impairment; Decreased social interaction 11/10/[address] [place] [address] Yolanda Damon DNP Medical Question/Miscellaneous 11/04/2024 Orders Only [address] [place] [address] Yolanda Damon DNP 11/02/2024 Telephone [facility] [address] [place] [address] [address] [place] [address] Unknown, Notinfile 11/02/[address] [place] [address] Yolanda Damon DNP [facility] RN request 11/02/2024 Orders Only [address] [place] [address] Yolanda Damon DNP Type 2 diabetes mellitus with hyperglycemia, with long-term current use of insulin (HCC) (Primary Dx); Labile blood glucose; Urinary incontinence, unspecified type; Cognitive impairment; History of fall; Generalized weakness; History of CVA (cerebrovascular accident); Pressure injury of skin of sacral region, unspecified injury stage 10/28/2024 4:00 PM CDT Office Visit [facility] [address] [facility] [address] [place] [address] Juliana Badillo NP Cerebrovascular accident (CVA), unspecified mechanism (HCC) (Primary Dx); Moderate dementia without behavioral disturbance, psychotic disturbance, mood disturbance, or anxiety, unspecified dementia type (HCC); Contracture of left hand 10/27/2024 Telephone [facility] [address] [facility] [address] [place] [address] Harp Michelle 10/26/2024 11:00 AM CDT Office Visit [address] [place] [address] Yolanda Damon DNP Fecal impaction (HCC) (Primary Dx); Constipation, unspecified constipation type; Cognitive impairment; History of fall; Generalized weakness; Frailty; History of CVA (cerebrovascular accident); Current severe episode of major depressive disorder without psychotic features without prior episode (HCC); Hypertension associated with type 2 diabetes mellitus (HCC); Type 2 diabetes mellitus with hyperglycemia, with long-term current use of insulin (HCC) 10/22/[address] [place] [address] Yolanda Damon DNP needs a follow up appointment 10/21/2024 3:54 PM CDT - 10/21/2024 5:40 PM CDT [facility] Department [address] [place] [id number] Fecal impaction (HCC) (Primary Dx); Other constipation; Stage 4 chronic kidney disease (HCC) Discharge Disposition: Discharge to home or self care 10/21/2024 11:00 AM CDT Office Visit [address] [place] [address] Yolanda Dmaon DNP Decreased bowel sounds (Primary Dx); Decreased frequency of bowel movements; Decreased social interaction; Labile blood glucose; Generalized weakness; Cognitive impairment; Dependent for wheelchair mobility; Urinary incontinence, unspecified type; Type 2 diabetes mellitus with hyperglycemia, with long-term current use of insulin (HCC); Type 2 diabetes mellitus with hyperlipidemia (HCC); Hypertension associated with type 2 diabetes mellitus (HCC); Type 2 diabetes mellitus with stage 4 chronic kidney disease, without long-term current use of insulin (HCC); Type 2 diabetes mellitus with cardiac complication (HCC); Chronic diastolic congestive heart failure (HCC); History of CVA (cerebrovascular accident); Current severe episode of major depressive disorder without psychotic features without prior episode (HCC); Pressure injury of buttock, stage 2, unspecified laterality (HCC) 10/20/2024 1:35 PM CDT [facility] [address] [place] [id number] Hypertension associated with type 2 diabetes mellitus (HCC); Chronic kidney disease, stage 4 (severe) (HCC); Type 2 diabetes mellitus with hyperlipidemia (HCC); Chronic diastolic congestive heart failure (HCC); Hyperparathyroidism; Iron deficiency anemia, unspecified iron deficiency anemia type 10/20/[address] [place] [address] Yoalnda Damon DNP Additional Services Or Orders 10/17/2024 Results Follow-Up [facility] at [place] [address] [facility] [address] [place] [address] Troy Umanzor MD Surgical pathology 10/16/2024 Orders Only [address] [place] [address] Yolanda Damon DNP Abnormal CBC (Primary Dx); Chronic kidney disease, stage 4 (severe) ([facility]); Leukocytosis, unspecified type 10/13/2024 Telephone [place] [address] [facility] [address] [place] [address] Yoalnda Damon DNP patient depressed, not engaged 10/06/2024 Telephone [place] [address] [facility] [address] [place] [address] Yolanda Damon DNP resend HH referral 10/05/2024 8:44 AM CDT Anesthesia Event [facility] [address] [place] [address] Gorge Jay MD 10/05/2024 8:15 AM CDT - 10/05/2024 8:30 AM CDT Surgery [facility] [address] [place] [address] Troy Umanzor MD COLON REMOVAL SNARE 10/05/2024 6:49 AM CDT - 10/05/2024 10:01 AM CDT Hospital Encounter [facility] [address] [place] [address] Troy Umanzor MD Screening for colon cancer Discharge Disposition: Discharge to home or self care 10/04/2024 8:29 AM CDT - 10/04/2024 9:10 AM CDT Hospital Encounter [facility] [address] [place] [address] Troy Umanzor MD Discharge Disposition: Discharge to home or self care 10/04/2024 Orders Only [facility] Gastro[facility]ology at [address] [place] [address] Troy Umanzor MD Screening for colon cancer (Primary Dx) 10/04/2024 Orders Only [facility] Gastroenterology at [address] [place] [address] Troy Umanzor MD 10/04/2024 Telephone [facility] Family [facility] [facility] [address] [place] [address] Yolanda Damon DNP Medical Question/Miscellaneous 10/03/2024 Orders Only [facility] Family Medicine [address] [facility] [address] [place] [address] Yolanda Damon DNP Chronic kidney disease, stage 4 (severe) (HCC) (Primary Dx); Hypertension associated with type 2 diabetes mellitus (HCC); Generalized anxiety disorder; Type 2 diabetes mellitus with hyperlipidemia (HCC); Urinary incontinence, unspecified type; Type 2 diabetes mellitus with hyperglycemia, with long-term current use of insulin (HCC); Urinary retention; Chronic diastolic congestive heart failure (HCC); Cognitive impairment; History of fall; Generalized weakness; History of CVA (cerebrovascular accident); Current severe episode of major depressive disorder without psychotic features without prior episode (HCC); Weakness; Hyperparathyroidism; 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); Frailty syndrome in geriatric patient; Dependent for wheelchair mobility; Sepsis with acute renal failure without septic shock, due to unspecified organism, unspecified acute renal failure type (HCC); Emphysematous cystitis 10/01/2024 Telephone [facility] [address] [facility] [address] [place] [address] Lennie Avery 09/30/2024 4:00 PM CDT Office Visit [facility] Family Medicine [address] [facility] [address] [place] [address] Yolanda Damon DNP Hospital discharge follow-up (Primary Dx); Emphysematous cystitis; Pressure injury of buttock, stage 2, unspecified laterality (HCC); Hypertension associated with type 2 diabetes mellitus (HCC); Type 2 diabetes mellitus with hyperlipidemia (HCC); 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); Type 2 diabetes mellitus with cardiac complication (HCC); Chronic kidney disease, stage 4 (severe) (HCC); Iron deficiency anemia, unspecified iron deficiency anemia type; Hyperparathyroidism; Urinary incontinence, unspecified type; Urinary retention; Chronic diastolic congestive heart failure (HCC); Cognitive impairment; History of fall; Generalized weakness; History of CVA (cerebrovascular accident); Current severe episode of major depressive disorder without psychotic features without prior episode (HCC); Frailty syndrome in geriatric patient; Dependent for wheelchair mobility from Last 3 Months Immunizations Immunization Administration Dates Next Due Influenza, Quad, Adjuvantate d, Intramuscular 02/11/2022 Influenza, Quadrivalent, Spl it, Preservative Free, Intramuscular 01/10/2021 Influenza, Unspecified 02/16/2024(Deferr ed: Patient Refused),01/16/2024(Deferred: Patient Refused),11/30/2023,12/29/2022 Pneumococcal Polysaccharide PPV23 02/11/2022 Surgical History Surgery Date Site/Laterality Comments BREAST BIOPSY Bilateral Medical History Medical History Date Comments Diabetes mellitus Chronic kidney disease stage 4 Hypertension Hyperlipidemia CVA (cerebral vascular accident) (HCC) 09/2020 and 09/2023 Gallstones Type 2 diabetes mellitus Family History Medical History Relation Name Comments Hypertension Maternal Grandmother Luiza Breast cancer Neg Hx Colon cancer Neg Hx Ovarian cancer Neg Hx Relation Name Status Comments Daughter Alive Maternal Grandmother Luiza Social History Tobacco Use Types Packs/Day Years Used Date Smoking Tobacco: Former Cigarettes Smokeless Tobacco: Never Tobacco Cessation:Counseling Given: Not Answered Alcohol Use Standard Drinks/Week Comments Never 0 (1 standard drink = 0.6 oz pur e alcohol) [facility] Utilities Answer Date Recorded In the past 12 months has e electric, gas, oil, or water company threatened to shut off services in your home? No 10/06/2024 Social Connection and Isolation Panel Answer Date Recorded In a typical week, how many times do you talk on the phone with family, friends, or neighbors? Twice a week 10/06/2024 How often do you get together with friends or re latives? Once a week 10/06/2024 How often do you attend restorationist or taoism serv ices? Never 10/06/2024 Do you belong to any clubs o r organizations such as restorationist groups, unions, fraternal or athletic groups, or school groups? No 10/06/2024 How often do you attend meet ings of the clubs or organizations you belong to? Never 10/06/2024 Are you , , di vorced, , never , or living with a partner? Never 10/06/2024 Overall Financial Resource Strain (CARDIA) Answe r Date Recorded How hard is it for you to pa y for the very basics like food, housing, medical care, and heating? Not hard at all 10/06/2024 PHQ-2 Answer Date Recorded PHQ-2 Total Score (If total score is 3 or more points, staff should administer the PHQ-9) 6 12/08/2024 Hunger Vital Sign Answer Date Recorded Within the past 12 months, y ou worried that your food would run out before you got the money to buy more. Never true 10/07/19 25 Within the past 12 months, t he food you bought just didn't last and you didn't have money to get more. Never true 10/06/2024 PRAPARE - Transportation Answer Date Re corded In the past 12 months, has l ack of transportation kept you from medical appointments or from getting medications? No 11/2024 In the past 12 months, has l ack of transportation kept you from meetings, work, or from getting things needed for daily living? No 10/06/2024 PHQ-9 Answer Date Recorded PHQ-9 Total Score 16 12/08/2024 Housing Stability Vital Sign Answer Tod e Recorded In the last 12 months, was t here a time when you were not able to pay the mortgage or rent on time? No 10/06/2024 In the past 12 months, how m any times have you moved where you were living? 1 10/06/2024 At any time in the past [address] [facility], were you homeless or living in a fpc (including now)? No 10/06/2024 AUDIT-C Answer Date Recorded Q1: How often do you have a drink containing alcohol? Never 12/08/2024 Q2: How many drinks containi ng alcohol do you have on a typical day when you are drinking? Patient does not drink Q3: How often do you have si x or more drinks on one occasion? Never 12/08/2024 Personal Safety Answer Date Recorded Have you ever been in or are you currently in a harmful physical or emotional relationship or is someone making you feel afraid or unsafe? Patient unable to answer 10/21/2024 Comments No Sex and Gender Information Value Date Recorded Sex Assigned at Not on file Legal Sex Female 3:51 PM CDT Gender Identity Female 03/07/2024 1:44 PM CLINICAL EDUCATION ASSISTANT Sexual Orientation Straight 03/07/2024 1: 44 PM CLINICAL EDUCATION ASSISTANT Obstetrics History Para Term AB IAB SAB Ectopic Multiple Livin g Live Births 1 1 Date Outcome GA Total Labor Labor/2nd/3rd Weight Sex Type Anes PTL Daphne A1 A5 Name Clin Term Last Filed Vital Signs Vital Sign Reading Time Taken Comments Blood Pressure 138/70 12/08/2024 1:51 PM CDT Pulse 84 12/08/2024 1:51 PM CDT Temperature 37.1 C (98.8 F) 12/02/2024 3:21 PM CDT Respiratory Rate 18 10/26/2024 11:35 AM CDT Oxygen Saturation 98% 12/08/2024 1:51 PM CDT Inhaled Oxygen Concentration - - Weight 59.9 kg (132 lb) 12/08/2024 1:51 PM CDT Height 162.6 cm (5' 4) 12/08/2024 1:51 PM CDT Body Mass Index 22.66 12/08/2024 1:51 PM CDT Plan of Treatment Health Maintenance Due Date Last Done Comments Foot Exam 1956 DTaP/Tdap/Td Vaccine (1 - Tdap) 1967 Hepatitis B Screening 1974 Zoster Vaccine (1 of 2) 2006 Pneumococcal vaccine 65+ (2 of 2 - PCV) 02/11/2023 02/11/2022 Influenza Vaccine (#1) 2024 , 12/29/2022, 02/11/2022, Additional history exists Breast Cancer Screening-Mammogram 12/14/2024 12/15/2023, 03/16/2020, 12/30/2018 Dilated Eye Exam 12/14/2024 12/15/2023 Albumin Creatinine Ratio, Urine 03/30/2025 Hemoglobin A1C 04/22/2025 10/20/2024, 06/30, 07/22/2024, Additional history exists Lipid Panel 10/20/2025 10/20/2024, 2 08/2024, 03/17/2024, Additional history exists eGFR 10/21/2025 10/21/2024, 09/29, 09/22/2024, Additional history exists Osteoporosis Screening-Bone Density Scan 11/04/2025 11/05/2023 Depression Screening 12/08/2025 12/08/2024, 12/08/2024, 10/26/2024, Additional history exists Fall Risk Assessment 12/08/2025 12/08/2024, 09/22/2024, 01/16/2024 Well Visit 65+ 12/08/2025 12/08/2024 Colon Cancer Screening-Colonoscopy 10/05/20342024 Hepatitis C Screening Completed 04/14/2024 Procedures Procedure Name Priority Date/Time Associated Diagnosis Comments CT ABDOMEN PELVIS WO CONTRAST ED 10/21/2024 2:21 PM CDT EGFR STAT 10/21/2024 12:57 PM CDT DIFFERENTIAL AUTO STAT 10/21/2024 12:57 PM CDT LIPASE STAT 10/21/2024 12:57 PM CDT COMPREHENSIVE METABOLIC PANEL STAT 10/21/2024 12:57 PM CDT CBC WITH AUTO DIFFERENTIAL STAT 10/21/2024 12:57 PM CDT POCT GLUCOSE DEVICE Routine 10/21/2024 12:56 PM CDT EGFR Routine 10/20/2024 1:43 PM CDT Hypertension associated with type 2 diabetes mellitus (HCC) Chronic kidney disease, stage 4 (severe) (HCC) Type 2 diabetes mellitus with hyperlipidemia (HCC) Chronic diastolic congestive heart failure (HCC) Hyperparathyroidism DIFFERENTIAL AUTO Routine 10/20/2024 1:4 3 PM CDT Hypertension associated with type 2 diabetes mellitus (HCC) Chronic kidney disease, stage 4 (severe) (HCC) Type 2 diabetes mellitus with hyperlipidemia (HCC) Chronic diastolic congestive heart failure (HCC) Hyperparathyroidism Iron deficiency anemia, unspecified iron deficiency anemia type COMPREHENSIVE METABOLIC PANEL Routine 10/20/2024 1:43 PM CDT Hypertension associated with type 2 diabetes mellitus (HCC) Chronic kidney disease, stage 4 (severe) (HCC) Type 2 diabetes mellitus with hyperlipidemia (HCC) Chronic diastolic congestive heart failure (HCC) Hyperparathyroidism IRON PROFILE W/ IBC Routine 10/20/2024 1 :43 PM CDT Hypertension associated with type 2 diabetes mellitus (HCC) Chronic kidney disease, stage 4 (severe) (HCC) Type 2 diabetes mellitus with hyperlipidemia (HCC) Chronic diastolic congestive heart failure (HCC) Hyperparathyroidism Iron deficiency anemia, unspecified iron deficiency anemia type CBC WITH AUTO DIFFERENTIAL Routine 10/20/2024 1:43 PM CDT Hypertension associated with type 2 diabetes mellitus (HCC) Chronic kidney disease, stage 4 (severe) (HCC) Type 2 diabetes mellitus with hyperlipidemia (HCC) Chronic diastolic congestive heart failure (HCC) Hyperparathyroidism Iron deficiency anemia, unspecified iron deficiency anemia type LIPID PANEL Routine 10/20/2024 1:43 PM CDT Hypertension associated with type 2 diabetes mellitus (HCC) Chronic kidney disease, stage 4 (severe) (HCC) Type 2 diabetes mellitus with hyperlipidemia (HCC) Chronic diastolic congestive heart failure (HCC) Hyperparathyroidism HEMOGLOBIN A1C Routine 10/20/2024 1:43 PM CDT Hypertension associated with type 2 diabetes mellitus (HCC) Chronic kidney disease, stage 4 (severe) (HCC) Type 2 diabetes mellitus with hyperlipidemia (HCC) Chronic diastolic congestive heart failure (HCC) Hyperparathyroidism POCT GLUCOSE DEVICE Routine 10/05/2024 9 :28 AM CDT SURGICAL PATHOLOGY Routine 10/05/2024 8: 55 AM CDT Screening for colon cancer COLONOSCOPY 10/05/2024 8:48 AM CDT COLON REMOVAL SNARE 10/05/2024 8 :44 AM CDT Screening for colon cancer POCT GLUCOSE DEVICE Routine 10/05/2024 7 :51 AM CDT HEPATITIS PANEL, ACUTE Routine 04/14/2024 9:43 AM CLINICAL EDUCATION ASSISTANT ALBUMIN CREATININE RATIO, URINE Routine 03/30/2024 10:54 AM CLINICAL EDUCATION ASSISTANT Stage 4 chronic kidney disease (HCC) SCREENING MAMMOGRAM BILATERAL W JAI Schedule Routine, Read Routine (OP Routine) 12/15/2023 1:47 PM CDT Breast cancer screening by mammogram HM DIABETES EYE EXAM Routine 12/15/2023 8:14 AM CDT DEXA AXIAL SKELETON BONE DENSITY 1 OR MORE SITES Schedule Routine, Read Routine (OP Routine) 11/05/2023 7:20 AM CDT Postmenopausal from Last 3 Months or Most Recently Relevant to Health Maintenance Results * CT Abdomen Pelvis WO Contrast (10/21/2024 2:21 PM CDT) Anatomical Region Laterality Modality Body N/A Computed Tomogra phy 10/21/2024 2:48 PM CDT Narrative 10/21/2024 2:55 PM CDT EXAM DESCRIPTION: CT ABDOMEN PELVIS WO CONTRAST REASON FOR STUDY: Bowel obstruction suspected Son states pt has not had a BM since her colonoscopy on 10/05/24. Pt saw her PCP today who then referred her to ED for further eval. TECHNIQUE: CT scan of the abdomen and pelvis performed without intravenous and without oral contrast using helical scanning technique. Reconstructed coronal and sagittal MPR images reviewed. All images stored on PACS. Automated exposure control was used as a dose optimization technique for this examination. COMPARISON: CT chest abdomen and pelvis 09/19/2024 FINDINGS: The sensitivity for detection of visceral lesions is diminished without the use of intravenous contrast. LOWER CHEST: No significant pulmonary abnormalities. No effusion. LIVER: Normal size. No identified cystic or solid masses. GALLBLADDER: Cholelithiasis. No gallbladder wall thickening or adjacent inflammatory stranding. BILE DUCTS: No intrahepatic or extrahepatic ductal dilatation. SPLEEN: Normal size. No focal lesions. PANCREAS: No identified cystic or solid masses. No significant calcifications. No adjacent inflammation or peripancreatic fluid collections. Pancreatic duct not dilated. ADRENALS: Normal. KIDNEYS/URINARY TRACT: No identified significant cystic or solid masses. Punctate bilateral nonobstructing renal stones. No hydronephrosis or hydroureter. No significant bladder wall thickening. Bladder within the nondependent aspect of the bladder lumen. GI: The distal esophagus and stomach are unremarkable. No dilated bowel loops. No obvious wall thickening. Normal appendix. Mild colonic diverticulosis. Prominent stool throughout the colon. PERITONEUM: No ascites or free air. RETROPERITONEUM: No mass or adenopathy. REPRODUCTIVE: No significant abnormality. VASCULATURE: No abdominal aortic aneurysm. MUSCULOSKELETAL: No acute abnormality. Stable mild T11 vertebral body superior endplate compression deformity. OTHER: No other abnormality. IMPRESSION: 1. No evidence of bowel obstruction. 2. Prominent stool throughout the colon. 3. Small nonobstructing bilateral renal stones. 4. Air within the bladder lumen, correlate with history of recent instrumentation. THIS IS AN ELECTRONICALLY VERIFIED FINAL REPORT 10/21/2024 2:55 PM - Electronically signed by Zachery Murray M.D. KR: KR Report ID: [id number] Reading Location: [place] [address] Procedure Note Zachery Murray MD - 10/21/2024 EXAM DESCRIPTION: CT ABDOMEN PELVIS WO CONTRAST REASON FOR STUDY: Bowel obstruction suspected Son states pt has not had a BM since her colonoscopy on 10/05/24. Pt saw herPCP today who then referred her to ED for further eval. TECHNIQUE: CT scan of the abdomen and pelvis performed without intravenousand without oral contrast using helical scanning technique. Reconstructed coronal and sagittal MPR images reviewed. All images stored on PACS.Automated exposure control was used as a dose optimization technique for this examination. COMPARISON: CT chest abdomen and pelvis 09/19/2024 FINDINGS: The sensitivity for detection of visceral lesions is diminished without the use of intravenous contrast. LOWER CHEST: No significant pulmonary abnormalities. No effusion. LIVER: Normal size. No identified cystic or solid masses. GALLBLADDER: Cholelithiasis. No gallbladder wall thickening or adjacent inflammatory stranding. BILE DUCTS: No intrahepatic or extrahepatic ductal dilatation. SPLEEN: Normal size. No focal lesions. PANCREAS: No identified cystic or solid masses. No significant calcifications. No adjacent inflammation or peripancreatic fluidcollections. Pancreatic duct not dilated. ADRENALS: Normal. KIDNEYS/URINARY TRACT: No identified significant cystic or solid masses. Punctate bilateral nonobstructing renal stones. No hydronephrosis or hydroureter. No significant bladder wall thickening. Bladder withinthe nondependent aspect of the bladder lumen. GI: The distal esophagus and stomach are unremarkable. No dilated bowel loops. No obvious wall thickening. Normal appendix. Mild colonic diverticulosis. Prominent stool throughout the colon. PERITONEUM: No ascites or free air. RETROPERITONEUM: No mass or adenopathy. REPRODUCTIVE: No significant abnormality. VASCULATURE: No abdominal aortic aneurysm. MUSCULOSKELETAL: No acute abnormality. Stable mild T11 vertebral body superior endplate compression deformity. OTHER: No other abnormality. IMPRESSION: 1. No evidence of bowel obstruction. 2. Prominent stool throughout the colon. 3. Small nonobstructing bilateral renal stones. 4. Air within the bladder lumen, correlate with history of recent instrumentation. THIS IS AN ELECTRONICALLY VERIFIED FINAL REPORT 10/21/2024 2:55 PM - Electronically signed by Zachery Murray M.D. KR: KR Report ID: [id number] Reading Location: [place] [address] PROCEDURES Final Result * (ABNORMAL) eGFR (10/21/2024 12:57 PM CDT) eGFR 23(L) >=60 mL/min/1. 73 m2 Comment: Interpretive Data Reference Interval Normal >/= 90 mL/min/1.73m2 Mildly decreased* 60 - 89 mL/min/1.73m2 Mildly to moderately decreased 45 - 59 mL/min/1.73m2 Moderately to severely decreased 30 - 44 mL/min/1.73m2 Severely decreased 15 - 29 mL/min/1.73m2 Kidney Failure < 15 mL/min/1.73m2 *Relative to young adult level Estimated glomerular filtration rate is determined by the 2020 CKD-EPI equation recommended by the National [employer] (A Unifying Approach to GFR Estimation: Recommendations of the NKF-ASK Task Force on Reassessing the Inclusion of Race in Diagnosing Kidney Disease, JASN 202). The CKD-EPI equation should not be used for patients with unstable renal function and has not been validated in children and those over 70. Current interpretive data was last reviewed 2021. Testing performed by: [facility], [address] [place] [address]., [id number] Blood 10/21/2024 12:5 7 PM CDT 10/21/2024 1:15 PM CDT us Sofi SUAREZ LAB BLOOD ORDERABLES Final Resu lt [facility] [address] [facility] Department of [employer] [place] [address] * (ABNORMAL) Differential, auto (10/21/2024 12:57 PM CDT) Neutrophil abs 5.12 1.50 - 6.50 K/cumm Comment:Testing performed by : [address] [address] Imm gran abs 0.04 0.00 - 0.10 K/cumm [facility] Comment:Testing performed by : [address] [address] Lymphocyte abs 2.44 0.80 - 3.30 K/cumm [facility] Comment:Testing performed by : [address] [address] Monocyte abs 1.03(H) 0.20 - 0.80 K/cumm [facility] Comment:Testing performed by : [address] [address] Eosinophil abs 0.25 0.00 - 0.50 K/cumm [facility] Comment:Testing performed by : [address] [address] Basophil abs 0.09 0.00 - 0.10 K/cumm [facility] Comment:Testing performed by : [address] [address] Neutrophil pct 57.1 % [facility] Comment: Interpretive Data Percent cell count reference ranges are not reported, since discordance with absolute values may lead to misinterpretation of CBC data. Current Interpretive Data was last revised on 2017. Testing performed by: [address] [address] Imm gran pct 0.4 % [facility] Comment: Interpretive Data Percent cell count reference ranges are not reported, since discordance with absolute values may lead to misinterpretation of CBC data. Current Interpretive Data was last revised on 2017. Testing performed by: [address] [address] Lymphocyte pct 27.2 % [facility] Comment: Interpretive Data Percent cell count reference ranges are not reported, since discordance with absolute values may lead to misinterpretation of CBC data. Current Interpretive Data was last revised on 2017. Testing performed by: [address] [address] Monocyte pct 11.5 % [facility] Comment: Interpretive Data Percent cell count reference ranges are not reported, since discordance with absolute values may lead to misinterpretation of CBC data. Current Interpretive Data was last revised on 2017. Testing performed by: [address] [address] Eosinophil pct 2.8 % [facility] Comment: Interpretive Data Percent cell count reference ranges are not reported, since discordance with absolute values may lead to misinterpretation of CBC data. Current Interpretive Data was last revised on 2017. Testing performed by: [address] [address] Basophil pct 1.0 % [facility] Comment: Interpretive Data Percent cell count reference ranges are not reported, since discordance with absolute values may lead to misinterpretation of CBC data. Current Interpretive Data was last revised on 2017. Testing performed by: [address] [address] Blood 10/21/2024 12:5 7 PM CDT 10/21/2024 1:15 PM CDT Sofi SUAREZ LAB BLOOD ORDERABLES Final Resu lt [facility] [address] [facility] Department of Laboratories [place], [place] [id number] * (ABNORMAL) CBC with auto differential (10/21/2024 12:57 PM CDT) WBC 8.97 3.80 - 9.90 K/cumm Comment:Testing performed by : [address] [address] Hgb 11.3(L) 11.9 - 15.5 g/dL [facility] BOWMAN Comment:Testing performed by : [address] [address] Hct 35.4(L) 35.6 - 45.5 % [facility] Comment:Testing performed by : [address] [address] Plt 248 150 - 400 K/cumm [facility] Comment:Testing performed by : [address] [address] MPV 11.4 9.1 - 12.3 fL [facility] Comment:Testing performed by : [address] [address] RBC 3.92 3.90 - 5.20 M/cumm [facility] Comment:Testing performed by : [address] [address] MCV 90.3 81.3 - 96.4 fL [facility] Comment:Testing performed by : [address] [address] MCH 28.8 27.1 - 33.3 pg [facility] BOW[facility] Comment:Testing performed by : [address] [address] MCHC 31.9(L) 32.3 - 35.7 g/dL [facility] BOW[facility] Comment:Testing performed by : [address] [address] RDW CV 16.4(H) 11.1 - 14.9 % [facility] Comment:Testing performed by : [address] [address] RDW SD 54.2(H) 35.7 - 48.1 fL [facility] Comment:Testing performed by : [address] [address] NRBC abs 0.00 0.00 - 0.01 K/cumm [facility]OW[facility] Comment:Testing performed by : [address] [address] Blood Venous blood specimen / Unknown 10/21/2024 12:57 PM CDT 10/21/2024 1:15 PM CDT us Sofi SUAREZ LAB BLOOD ORDERABLES Final Resu lt [facility] BOWMAN [address] [facility] Department [place] [address] * Lipase (10/21/2024 12:57 PM CDT) Lipase 27 10 - 99 Units/L Comment:Testing performed by : [address] [address] Blood Venous blood specimen / Unknown 10/21/2024 12:57 PM CDT 10/21/2024 1:15 PM CDT Sofi SUAREZ LAB BLOOD ORDERABLES Final Resu lt [facility] [address] [facility] Department [place] [address] * (ABNORMAL) Comprehensive metabolic panel (10/21/2024 12:57 PM CDT) Pathologist [facility] Sodium 143 135 - 145 mmol/L Comment:Testing performed by : [address] [address] Potassium, pl 3.9 3.3 - 4.9 mmol/L [facility] Comment:Testing performed by : [address] [address] Chloride 103 97 - 110 mmol/L [facility] Comment:Testing performed by : [address] [address] CO2 28 22 - 32 mmol/L [facility] Comment:Testing performed by : [address] [address] Anion gap 12 2 - 15 mmol/L [facility] Comment:Testing performed by : [address] [address] BUN 49(H) 6 - 25 mg/dL [facility] Comment:Testing performed by : [address] [address] Creatinine 2.30(H) 0.60 - 1.10 mg/dL [facility] Comment:Testing performed by : [address] [address] Glucose 190 70 - 199 mg/dL [facility] Comment: Interpretive Data Fasting glucose >/= 126 mg/dl is diagnostic for diabetes. Fasting is defined as no caloric intake for at least 8 hours. Fasting glucose between 100 mg/dl to 125 mg/dl is diagnostic of prediabetes. In a patient with classic symptoms of hyperglycemia or hyperglycemic crisis, a random glucose >/= 200 mg/dl is diagnostic for diabetes. In the absence of unequivocal hyperglycemia, results should be confirmed by repeat testing. The classification and Diagnosis of Diabetes Diabetes Care 2021; 46: S19-S40. Current interpretive data was last revised 2022. Testing performed by: [address] [address] Calcium 10.0 8.5 - 10.3 mg/dL [facility] Comment:Testing performed by : [address] [address] Bilirubin, total 0.3 0.1 - 1.2 mg/dL [facility] Comment:Testing performed by : [address] [address] Protein, pl 8.2 6.5 - 8.5 g/dL [facility] Comment:Testing performed by : [address] [address] Albumin 3.8 3.5 - 5.0 g/dL [facility] Comment:Testing performed by : [address] [address] Alk phos 93 40 - 130 Units/L [facility] Comment:Testing performed by : [address] [address] ALT 16 7 - 45 Units/L [facility] Comment:Testing performed by : [address] [address] AST 19 10 - 45 Units/L [facility] Comment:Testing performed by : [address] [address] Blood 10/21/2024 12:5 7 PM CDT 10/21/2024 1:15 PM CDT us Sofi SUAREZ LAB BLOOD ORDERABLES Final Resu lt [facility] [address] [place] [address] * POCT glucose (10/21/2024 12:56 PM CDT) [facility] Glucose, POC 177 70 - 199 mg/dL Comment:Testing performed by : [facility], [address] [place] [address]., [address] Blood 10/21/2024 12:5 6 PM CDT 10/21/2024 12:56 PM CDT us Notinfile Unknown LAB POCT ORDERABLES - DEVICE F inal Result [facility] [address] [address] * (ABNORMAL) eGFR (10/20/2024 1:43 PM CDT) [facility] eGFR 23(L) >=60 mL/min/1. 73 m2 Comment: Interpretive Data Reference Interval Normal >/= 90 mL/min/1.73m2 Mildly decreased* 60 - 89 mL/min/1.73m2 Mildly to moderately decreased 45 - 59 mL/min/1.73m2 Moderately to severely decreased 30 - 44 mL/min/1.73m2 Severely decreased 15 - 29 mL/min/1.73m2 Kidney Failure < 15 mL/min/1.73m2 *Relative to young adult level Estimated glomerular filtration rate is determined by the 2020 CKD-EPI equation recommended by the National Kidney Foundation (A Unifying Approach to GFR Estimation: Recommendations of the NKF-ASK Task Force on Reassessing the Inclusion of Race in Diagnosing Kidney Disease, JASN 2020). The CKD-EPI equation should not be used for patients with unstable renal function and has not been validated in children and those over 70. Current interpretive data was last reviewed 2021. Testing performed by: [facility], [address] [place] [address]., [address] Blood 10/20/2024 1:43 PM CDT 10/20/2024 1:54 PM CDT us [facility] LAB BLOOD ORDERABLE S Final Result [facility] [address] [facility] Department [place] [address] * (ABNORMAL) Differential, auto (10/20/2024 1:43 PM CDT) Neutrophil abs 3.24 1.50 - 6.50 K/cumm Comment:Testing performed by : [address] [address] Imm gran abs 0.03 0.00 - 0.10 K/cumm [facility] Comment:Testing performed by : [address] [address] Lymphocyte abs 2.23 0.80 - 3.30 K/cumm [facility] Comment:Testing performed by : [address] [address] Monocyte abs 0.86(H) 0.20 - 0.80 K/cumm [facility] Comment:Testing performed by : [address] [address] Eosinophil abs 0.24 0.00 - 0.50 K/cumm [facility] Comment:Testing performed by : [address] [address] Basophil abs 0.06 0.00 - 0.10 K/cumm [facility] Comment:Testing performed by : [address] [address] Neutrophil pct 48.6 % [facility] Comment: Interpretive Data Percent cell count reference ranges are not reported, since discordance with absolute values may lead to misinterpretation of CBC data. Current Interpretive Data was last revised on 2017. Testing performed by: [address] [address] Imm gran pct 0.5 % [facility] Comment: Interpretive Data Percent cell count reference ranges are not reported, since discordance with absolute values may lead to misinterpretation of CBC data. Current Interpretive Data was last revised on 2017. Testing performed by: [address] [address] Lymphocyte pct 33.5 % [facility] Comment: Interpretive Data Percent cell count reference ranges are not reported, since discordance with absolute values may lead to misinterpretation of CBC data. Current Interpretive Data was last revised on 2017. Testing performed by: [address] [address] Monocyte pct 12.9 % [facility] Comment: Interpretive Data Percent cell count reference ranges are not reported, since discordance with absolute values may lead to misinterpretation of CBC data. Current Interpretive Data was last revised on 2017. Testing performed by: [address] [address] Eosinophil pct 3.6 % [facility] Comment: Interpretive Data Percent cell count reference ranges are not reported, since discordance with absolute values may lead to misinterpretation of CBC data. Current Interpretive Data was last revised on 2017. Testing performed by: [address] [address] Basophil pct 0.9 % [facility] Comment: Interpretive Data Percent cell count reference ranges are not reported, since discordance with absolute values may lead to misinterpretation of CBC data. Current Interpretive Data was last revised on 2017. Testing performed by: [address] [address] Blood 10/20/2024 1:43 PM CDT 10/20/2024 1:54 PM CDT Yolanda Damon [facility] LAB BLOOD ORDERABLE S Final Result [facility] [address] [facility] Department of Laboratories [place], [place] [id number] * Iron profile w/ IBC (10/20/2024 1:43 PM CDT) Iron 49 35 - 145 mcg/dL Comment:Testing performed by : [address] [address] TIBC 251 250 - 400 mcg/dL [facility] Comment:Testing performed by : [address] [address] Transferrin saturation 20 20 - 50 % [facility] Comment:Testing performed by : [address] [address] Blood 10/20/2024 1:43 PM CDT 10/20/2024 1:54 PM CDT us Yolanda Guerratead [facility] LAB BLOOD ORDERABLE S Final Result [facility] [address] [facility] Department [place] [address] * (ABNORMAL) CBC with auto differential (10/20/2024 1:43 PM CDT) WBC 6.66 3.80 - 9.90 K/cumm Comment:Testing performed by : [address] [address] Hgb 10.5(L) 11.9 - 15.5 g/dL [facility] Comment:Testing performed by : [address] [address] Hct 32.4(L) 35.6 - 45.5 % [facility] Comment:Testing performed by : [address] [address] Plt 242 150 - 400 K/cumm [facility] Comment:Testing performed by : [address] [address] MPV 11.1 9.1 - 12.3 fL [facility] Comment:Testing performed by : [address] [address] RBC 3.67(L) 3.90 - 5.20 M/cumm [facility] Comment:Testing performed by : [address] [address] MCV 88.3 81.3 - 96.4 fL [facility] Comment:Testing performed by : [address] [address] MCH 28.6 27.1 - 33.3 pg [facility] BOWMAN Comment:Testing performed by : [address] [address] MCHC 32.4 32.3 - 35.7 g/dL [facility] Comment:Testing performed by : [address] [address] RDW CV 16.2(H) 11.1 - 14.9 % [facility] Comment:Testing performed by : [address] [address] RDW SD 52.9(H) 35.7 - 48.1 fL [facility] BOWMAN Comment:Testing performed by : [address] [address] NRBC abs 0.00 0.00 - 0.01 K/cumm [facility] BOWMAN Comment:Testing performed by : [address] [address] Blood 10/20/2024 1:43 PM CDT 10/20/2024 1:54 PM CDT Yolanda Damon [facility] LAB BLOOD ORDERABLE S Final Result [facility] [address] [facility] Department [place] [address] * (ABNORMAL) Hemoglobin A1c (10/20/2024 1:43 PM CDT) [facility] Hgb A1C 8.2(H) 4.0 - 5.6 % Comment:Testing performed by : [address] [address] Estimated Average Glucose 189 mg/dL [facility] Comment: The ADA recommends reporting an estimated Average Glucose (eAG) with all Hemoglobin A1c results using the equation derived from a study of 507 normal and diabetic adults. Minority populations were underrepresented and children were not included. (Diabetes Care 31:5472-8252, 2008). The eAG is not equivalent to a fasting glucose. Testing performed by: [address] [address] Blood 10/20/2024 1:43 PM CDT 10/20/2024 1:54 PM CDT us Yolanda Damon [facility] LAB BLOOD ORDERABLE S Final Result [facility] [address] [facility] Department of Laboratories [place], [place] [id number] * Lipid panel (10/20/2024 1:43 PM CDT) Cholesterol 186 30 - 199 mg/dL Comment: Interpretive Data Ages < or = 19 years Acceptable: <170 mg/dL Borderline high: 170-199 mg/dL High: >or= 200 mg/dL Ages > or = 20 years Desirable: <200 mg/dL Borderline high: 200-239 mg/dL High: >or= 240 mg/dL Literature References: 1. Expert Panel on Integrated Guidelines for Cardiovascular Health and Risk Reduction in Children and Adolescents. Pediatrics 2011;128:S213 2. NCEP Expert Panel. Circulation 2004;110:227 Current Interpretive Data was last revised on 2017. Testing performed by: [address] [address] Triglycerides 93 <=149 mg/dL [facility] Comment: Interpretive Data Ages < or = 9 years Acceptable: <75 mg/dL Borderline high: 75-99 mg/dL High: >or= 100 mg/dL Ages 10 to 20 years Acceptable: <90 mg/dL Borderline high: 90-129 mg/dL High: >or= 130 mg/dL Ages > or = 20 years Desirable: <150 mg/dL Borderline high: 150-199 mg/dL High: 200-499 mg/dL Very high: >or= 499 mg/dL Literature References: 1. Expert Panel on Integrated Guidelines for Cardiovascular Health and Risk Reduction in Children and Adolescents. Pediatrics 2011;128:S213 2. NCEP Expert Panel. Circulation 2004;110:227 Current Interpretive Data was last revised on 2017. Testing performed by: [address] [address] HDL 46 >=40 mg/dL [facility] Comment: Interpretive Data Ages < or = 19 years Acceptable: >45 mg/dL Borderline low: 40-45 mg/dL Low: <40 mg/dL Ages > or = 20 years Desirable: >or= 60 mg/dL Low: <40 mg/dL Literature References: 1. Expert Panel on Integrated Guidelines for Cardiovascular Health and Risk Reduction in Children and Adolescents. Pediatrics 2011;128:S213 2. NCEP Expert Panel. Circulation 2004;110:227 Current Interpretive Data was last revised on 2017. Testing performed by: [address] [address] LDL, calculated 123 <=129 mg/dL [facility] Comment: Interpretive Data Ages < or = 19 years Acceptable: <110 mg/dL Borderline high: 110-129 mg/dL High: >or= 130 mg/dL Ages > or = 20 years Optimal: <100 mg/dL Near optimal: 100-129 mg/dL Borderline high: 130-159 mg/dL High: >160 mg/dL Calculated using the Pavel LDL-C estimating equation. This equation was implemented on 2023. Prior to this date LDL-C was estimated using the Friedewald equation. Literature References: 1. Expert Panel on Integrated Guidelines for Cardiovascular Health and Risk Reduction in Children and Adolescents. Pediatrics 2011;128:S213 2. NCEP Expert Panel. Circulation 2004;110:227 3. Pavel Nash et al. MINERVA Cardiol. 2020 July 29;5(5):540-548. doi: 10.1001/jamacardio.2020.0013 Current Interpretive Data was last revised on 2023. Testing performed by: [address] [address] Non-HDL Cholesterol 140 mg/dL [facility] Comment: Interpretive Data Ages < or = 19 years Acceptable: <120 mg/dL Borderline high: 120-144 mg/dL High: >145 mg/dL Ages > or = 20 years When triglycerides are >200 mg/dL, Non-HDL cholesterol is a secondary target of therapy with treatment goals that are 30 mg/dL greater than the LDL cholesterol target. Literature References: 1. Expert Panel on Integrated Guidelines for Cardiovascular Health and Risk Reduction in Children and Adolescents. Pediatrics 2011;128:S213 2. NCEP Expert Panel. Circulation 2004;110:227 Current Interpretive Data was last revised on 2017. Testing performed by: [address] [address] Chol/HDL ratio 4 [facility] Comment:Testing performed by : [address] [address] Blood 10/20/2024 1:43 PM CDT 10/20/2024 1:54 PM CDT us Yolanda Damon [facility] LAB BLOOD ORDERABLE S Final Result [facility] [address] [facility] Department [place] [address] * (ABNORMAL) Comprehensive metabolic panel (10/20/2024 1:43 PM CDT) Sodium 141 135 - 145 mmol/L Comment:Testing performed by : [address] [address] Potassium, pl 3.8 3.3 - 4.9 mmol/L [facility] Comment:Testing performed by : [address] [address] Chloride 102 97 - 110 mmol/L [facility] Comment:Testing performed by : [address] [address] CO2 28 22 - 32 mmol/L [facility] Comment:Testing performed by : [address] [address] Anion gap 11 2 - 15 mmol/L [facility] Comment:Testing performed by : [address] [address] BUN 46(H) 6 - 25 mg/dL [facility] Comment:Testing performed by : [address] [address] Creatinine 2.30(H) 0.60 - 1.10 mg/dL [facility] Comment:Testing performed by : [address] [address] Glucose 226(H) 70 - 199 mg/dL [facility] Comment: Interpretive Data Fasting glucose >/= 126 mg/dl is diagnostic for diabetes. Fasting is defined as no caloric intake for at least 8 hours. Fasting glucose between 100 mg/dl to 125 mg/dl is diagnostic of prediabetes. In a patient with classic symptoms of hyperglycemia or hyperglycemic crisis, a random glucose >/= 200 mg/dl is diagnostic for diabetes. In the absence of unequivocal hyperglycemia, results should be confirmed by repeat testing. The classification and Diagnosis of Diabetes Diabetes Care 202; 46: S19-S40. Current interpretive data was last revised 2022. Testing performed by: [address] [address] Calcium 9.3 8.5 - 10.3 mg/dL [facility] Comment:Testing performed by : [address] [address] Bilirubin, total 0.2 0.1 - 1.2 mg/dL [facility] Comment:Testing performed by : [address] [address] Protein, pl 7.6 6.5 - 8.5 g/dL [facility] Comment:Testing performed by : [address] [address] Albumin 3.6 3.5 - 5.0 g/dL [facility] Comment:Testing performed by : [address] [address] Alk phos 97 40 - 130 Units/L [facility] Comment:Testing performed by : [address] [address] ALT 17 7 - 45 Units/L [facility] Comment:Testing performed by : [address] [address] AST 17 10 - 45 Units/L [facility] Comment:Testing performed by : [address] [address] Blood 10/20/2024 1:43 PM CDT 10/20/2024 1:54 PM CDT us Yolanda Damon [facility] LAB BLOOD ORDERABLE S Final Result [facility] BOWMAN [address] [facility] Department [place] [address] * POCT glucose (10/05/2024 9:28 AM CDT) Glucose, POC 107 70 - 199 mg/dL Blood 10/05/2024 9:28 AM CDT 10/05/2024 9:28 AM CDT us Troy Umanzor MD LAB POCT ORDERABLES - DEV ICE Final Result [facility] [address] Department [place] [address] * Surgical pathology (10/05/2024 8:55 AM CDT) Tissue (Polyp(s), colon/colorectal, esophageal, gastric) 10/05/2024 8:55 AM CDT Narrative PATHOLOGY [facility] - 10/06/2024 7:[address] [facility] Department of Pathology [address] [place] [id number] Note to Patients: This report may contain a detailed description of human tissue sent by a health care provider to the laboratory for pathologic evaluation. The content of this report is essential for diagnosis and may provide important critical findings. This information may be unfamiliar to patients to review without a medical professional present. It is advised that the patient review this report in the presence of a health care provider who can answer questions and explain the details. Final Report Patient Name: IGNACIO VELIZ : 1955 (Age: 69) Gender: F Address: [address] [place] [address] Hospital #: [id number] Service: Gastro Location: Patient Type: [facility] OUTPATIENT Taken: 10/05/2024 Received: 10/05/2024 Accessioned: 10/05/2024 Reported: 10/06/2024 Physician(s): MD Yolanda Prado FNP Diagnosis: A. Large intestine, transverse colon, polyp, biopsy: - Tubular adenoma Siddharth Thompson M.D., Ph.D. Report Electronically Reviewed and Signed Out By Siddharth Thompson M.D., Ph.D. 10/06/2024 19:38:37 Specimen(s) Received: A: Transverse colon polyp cold snare Microscopic Description: Microscopic examination substantiates the above cited diagnosis. Microscopic examination substantiates the above cited diagnosis. Clinical History: The patient is a 69-year-old woman presenting for colon cancer screening. Operative procedure: Colonoscopy with biopsy. Gross Description Received in formalin, labeled with the patient s identifiers and transverse colon polyp cold snare and consists of a 0.5 cm quintero-pink tissue fragment, which is entirely submitted. Labeled A1. Jar 0. [facility]/10/05/2024 10:48 ARIANA Jason, PA (ASCP) Microscopic slide review and interpretation for this case was performed at [facility], Department of Surgical Pathology, [address] [facility] [place], [place] [id number], [place] [address] CLIA # [id number] Troy Umanzor MD LAB PATHOLOGY ORDERABLES Final Result PATHOLOGY [facility] * Colonoscopy (10/05/2024 8:48 AM CDT) Anatomical Region Laterality Modality Other Narrative Procedure Note Troy Umanzor MD - 10/05/2024 8:48 AM CDT [facility] GI ENDOSCOPY Patient Name: Ignacio Veliz Procedure Date: 10/05/2024 8:48 AM Date of : 1955 Admit Type: Outpatient Age: 69 Gender: Female Attending MD: Troy Umanzor M.D. Room: [facility] ENDOSCOPY ROOM 04 Note Status: Finalized Procedure: Colonoscopy Indications: Rectal bleeding, average risk Referring MD: Providers: Troy Umanzor M.D. Medicines: See the Anesthesia note for documentation of the administered medications Complications: No immediate complications. Estimated Blood Loss: Estimated blood loss was minimal. Procedure: Pre-Anesthesia Assessment: - Prior to the procedure, a History and Physicalwas performed, and patient medications and allergieswere reviewed. The risks and benefits of the procedureand the sedation options and risks were discussed withthe patient. All questions were answered and informed consent was obtained. Patient identification and proposed procedure were verified. After reviewingthe risks and benefits, the patient was deemed in satisfactory condition to undergo the procedure.The anesthesia plan was to use monitored anesthesiacare (MAC). Immediately prior to administration of medications, the patient was re-assessed foradequacy to receive sedatives. The heart rate, respiratory rate, oxygen saturations, blood pressure, adequacyof pulmonary ventilation, and response to care were monitored throughout the procedure. The physical status of the patient was re-assessed after the procedure. The benefits, risks and alternatives of theprocedure and sedation were discussed and informed consentwas obtained. All questions were answered. Please referto the signed informed consent document in the medical record. The scope was passed under direct vision.The [id number] colonoscope was introduced through theanus and advanced to the terminal ileum, with identification of the appendiceal orifice and IC valve. The colonoscopy was performed without difficulty. The patient tolerated the procedurewell. The quality of the bowel preparation was good.Scope insertion time was 2 minutes. Scope withdrawal time was 10 minutes. Prep was administered in a splitdose. Findings: The perianal and digital rectal examinations were normal. The visualized terminal ileum appeared normal. A 5 mm polyp was found in the transverse colon. The polyp wassessile. The polyp was removed with a cold snare. Resection and retrieval were complete. Diverticula (mild) were found in the sigmoid colon. Internal hemorrhoids were found. The hemorrhoids were small. Impression: - The examined portion of the terminal ileum was normal. - One 5 mm polyp in the transverse colon, removedwith a cold snare. Resected and retrieved. - Diverticulosis in the sigmoid colon. - Internal hemorrhoids. Recommendation: - Await pathology results. - Resume previous diet today. - Discharge patient to home. - Rectal bleeding likely due to hemorrhoids -increase fiber, hydration, avoid from straining. - Patient has a contact number available for emergencies. The signs and symptoms of potential delayed complications were discussed with thepatient. Return to normal activities tomorrow. Written discharge instructions were provided to thepatient. - I would be happy to see you in my GI clinic ifyou have further questions or concerns or if symptoms progress Troy Umanzor M.D. 10/05/2024 9:09:17 AM Number of Addenda: 0 Note Initiated On: 10/05/2024 8:48 AM Recognized by the [employer] for promoting quality in endoscopy Troy Umanzor MD ENDOSCOPY PROCEDURES Juliana l Result * POCT glucose (10/05/2024 7:51 AM CDT) Glucose, POC 108 70 - 199 mg/dL Blood 10/05/2024 7:51 AM CDT 10/05/2024 7:51 AM CDT Troy Umanzor MD LAB POCT ORDERABLES - DEV ICE Final Result [facility] [address] [facility] [place] [address] * Hepatitis panel, acute Blood (04/14/2024 9:43 AM CLINICAL EDUCATION ASSISTANT) Hep A IgM Nonreactive Nonreactive Comment: Interpretive Data: If Hep A IgM Ab is reported as Equivocal, a new sample should be drawn in two weeks for testing. Current interpretive data was last revised on 19. Hep B core IgM Nonreactive Nonreactive [facility] Comment: Interpretive Data If HepB Core IgM Ab is reported as Equivocal, a new sample should be drawn in two weeks for testing. Current interpretive data was last revised on 19. Hep C Ab Nonreactive Nonreactive [facility] Comment: Antibodies to HCV not detected. Does NOT exclude the possibility of recent exposure to HCV. Current interpretive data was last revised on 21 Interpretive Data Nonreactive: Antibodies to HCV not detected. Does NOT exclude the possibility of recent exposure to HCV. Equivocal: Equivocal for HCV antibodies. Supplemental molecular testing will be automatically performed to determine infection status in accordance with current CDC screening recommendations. Reactive: Positive for HCV antibodies. This may represent current or past HCV infection. Supplemental molecular testing will be automatically performed to determine current infection status in accordance with current CDC screening recommendations. Interpretive data was last revised on 2019. HepBsAg Nonreactive Nonreactive [facility] Blood 04/14/2024 9:43 AM CLINICAL EDUCATION ASSISTANT 04/14/2024 12:26 PM CLINICAL EDUCATION ASSISTANT China shukla MD LAB MICROBIOLOGY - GENERAL ORDERABLES Final Result [facility] [address] [facility] Department [place] [address] * (ABNORMAL) Albumin Creatinine Ratio, Urine (03/30/2024 10:54 AM CLINICAL EDUCATION ASSISTANT) Albumin Ur 4,121.0 mg/L Comment: Interpretive Data No reference range established. Current interpretive data was last revised 2018. Creatinine Ur 89.2 mg/dL [facility] Comment: Interpretive Data No reference range established. Current interpretive data was last revised 2018. Albumin Creatinine Ratio, Ur 4,620(H) 1 - 29 mg/g [facility] Urine 03/30/2024 10:5 4 AM CLINICAL EDUCATION ASSISTANT 03/30/2024 11:15 AM CLINICAL EDUCATION ASSISTANT Narrative NORRIS BOWMAN - 03/30/2024 11:56 AM CLINICAL EDUCATION ASSISTANT patient urine specimen was collected from patient catheter us Jass Nicolas MD LAB URINE ORDERABLES Final Resu lt NORRIS BOWMAN [address] [facility] Department [place] [address] * SCREENING MAMMOGRAM BILATERAL W JAI (12/15/2023 1:47 PM CDT) Anatomical Region Laterality Modality Breast Bilateral Mammography Impressions 12/26/2023 2:39 PM CDT BI-RADS ATLAS category (overall): 2 - Benign There is no mammographic evidence of malignancy. A 1 year screening mammogram is recommended. The patient has been or will be contacted. We recommend annual screening mammography for women at average risk of breast cancer beginning at age 40, based on guidelines of the [employer] (ACR Practice Parameter for the Performance of Screening and Diagnostic Mammography) and [employer]. For women with and elevated risk of breast cancer, please refer to the ACR Practice Parameter for specific screening recommendations. The patient will be entered into a reminder system with a target due date of 1 year for her next screening exam. Narrative 12/26/2023 2:39 PM CDT SCREENING MAMMOGRAM BILATERAL W JAI: 12/15/23 The study was acquired using full field digital technology and interpreted from soft copy. 2D digital mammographic views, as well as 3D digital tomosynthesis were performed in the CC and MLO projections. CLINICAL: Breast cancer screening by mammogram. No relevant medical history has been documented for this patient. History of breast cancer in Neg Hx. COMPARISONS: 03/28/2020 Breast Imaging Diagnostic Outside Reference 03/16/2020 Breast Imaging Screening Outside Reference 12/30/2018 Breast Imaging Screening Outside Reference BREAST TISSUE: There are scattered areas of fibroglandular density. FINDINGS: There are stable post operative changes in the left breast. A biopsy marker clip is unchanged in the right breast. New skin thickening is noted in the left breast. This is also noted on the right but much milder. There is also bilateral increased breast density. Given patient's history of chronic kidney disease, these findings are likely secondary to edema. No suspicious findings are definitely seen in either breast. Yolanda Guerratead DNP IMG MAMMO PROCEDURE S Final Result * (ABNORMAL) DIABETES EYE EXAM (12/15/2023 8:14 AM CDT) SCRIBED DIABETIC DILATED EYE EXAM Abnormal Historical Provider HEALTH MAINTENANCE Edited Result - Final * Dexa Axial Skeleton Bone Density 1 or 2 Site (11/05/2023 7:20 AM CDT) Anatomical Region Laterality Modality Body N/A Mammography 11/05/2023 5:47 PM CDT Narrative 11/05/2023 6:19 PM CDT EXAM DESCRIPTION: DEXA AXIAL SKELETON BONE DENSITY 1 OR MORE SITES REASON FOR STUDY: 68 y/o year old F with given history of: post-menopausal osteoporosis prevention Saw Operator/Model: BONESUPPORT A (S/N [id number]) CLINICAL INFORMATION: Current height: 64 inches Maximum height: 64.5 inches Weight: 154 pounds Risk factors: Postmenopausal COMPARISON: None available FINDINGS: AP LUMBAR SPINE L1-L4: Total BMD is 0.881 g/cm2 T-score is -2.4 LEFT HIP: Total BMD is 0.896 g/cm2 T-score is -0.9 Femoral neck BMD is 0.567 g/cm2 T-score is -2.7 FRAX: FRAX not reported due to T-scores of hip, femoral neck and/or spine being at or below -2.5 (Osteoporosis). IMPRESSION: Osteoporosis. REFERENCE: Bone mineral density: T-Score: Normal (T-score above or = -1.0) Low bone mass (T-score between -1.0 and -2.5) replaces the previously used term osteopenia Osteoporosis (T-score = or below -2.5) Z-Score: Within the expected range for age (Z-score above -2.0) Below the expected range for age (Z-score is -2.0 or below) Please see below follow up recommendations. Medical evaluation for secondary causes of low bone mineral density may be appropriate. FRAX is a World Health Organization validated fracture risk assessment tool that calculates a person's 10 year probability of a major osteoporosis related fracture and hip fracture. According to the National Osteoporosis Foundation guidelines, postmenopausal women and men age 50 or older with low bone mass and a 10 year probability of a major osteoporosis related fracture = or greater than 20% or a 10 year probability of a hip fracture = or greater than 3% should be considered for pharmacological treatment for the prevention of osteoporosis. For further information, including treatment recommendations, please refer to the 2019 ISCD Official Positions (http://www.iscd.org) and the NOF's Clinician's Guide to Prevention and Treatment of Osteoporosis (http://www.nof.org/professionals/clinical-guidelines) THIS IS AN ELECTRONICALLY VERIFIED FINAL REPORT 11/05/2023 6:19 PM - Electronically signed by Hema Bullard M.D. MF: [id number] Report ID: [id number] Reading Location: [place] [address] Procedure Note Hema Bullard MD - 11/05/2023 EXAM DESCRIPTION: DEXA AXIAL SKELETON BONE DENSITY 1 OR MORE SITES REASON FOR STUDY: 68 y/o year old F with given history of: post-menopausal osteoporosis prevention Saw Operator/Model: BONESUPPORT A (S/N [id number]) CLINICAL INFORMATION: Current height: 64 inches Maximum height: 64.5 inches Weight: 154 pounds Risk factors: Postmenopausal COMPARISON: None available FINDINGS: AP LUMBAR SPINE L1-L4: Total BMD is 0.881 g/cm2 T-score is -2.4 LEFT HIP: Total BMD is 0.896 g/cm2 T-score is -0.9 Femoral neck BMD is 0.567 g/cm2 T-score is -2.7 FRAX: FRAX not reported due to T-scores of hip, femoral neck and/or spine beingat or below -2.5 (Osteoporosis). IMPRESSION: Osteoporosis. REFERENCE: Bone mineral density: T-Score: Normal (T-score above or = -1.0) Low bone mass (T-score between -1.0 and -2.5) replaces thepreviously used term osteopenia Osteoporosis (T-score = or below -2.5) Z-Score: Within the expected range for age (Z-score above -2.0) Below the expected range for age (Z-score is -2.0 or below) Please see below follow up recommendations. Medical evaluation forsecondary causes of low bone mineral density may be appropriate. FRAX is a World Health Organization validated fracture risk assessmenttool that calculates a person's 10 year probability of a major osteoporosisrelated fracture and hip fracture. According to the National OsteoporosisFoundation guidelines, postmenopausal women and men age 50 or older with low bonemass and a 10 year probability of a major osteoporosis related fracture = or greater than 20% or a 10 year probability of a hip fracture = or greaterthan 3% should be considered for pharmacological treatment for the preventionof osteoporosis. For further information, including treatment recommendations, please referto the 2019 ISCD Official Positions (http://www.iscd.org) and the NOF's Clinician's Guide to Prevention and Treatment of Osteoporosis (http://www.nof.org/professionals/clinical-guidelines) THIS IS AN ELECTRONICALLY VERIFIED FINAL REPORT 11/05/2023 6:19 PM - Electronically signed by Hema Bullard M.D. 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 07/24/2024 Insurance [facility] MEDICARE ADVANTAGE MEDICARE ADVANTAGE Advance Directives For more information, please contact: [phone] Documents on File Type Date Recorded Patient Acting Manager Expl anation ADVANCE DIRECTIVE 04/28/2024 3:01 PM POLST - Phys Order for PT Preferences ADVANCE DIRECTIVE 01/30/2024 1:08 PM POLST - Phys Order for PT Preferences ADVANCE DIRECTIVE 01/30/2024 9:30 AM * Full Code (Latest Code Status on File) Date Activated Date Inactivated Comments 09/19/2024 3:47 AM 09/22/2024 8:23 PM * LIMITED - No CPR Date Activated Date Inactivated Comments 05/12/2024 12:01 AM 05/17/2024 10:10 PM Question Answer Comments Provide aggressive medical m anagement before a full cardiopulmonary arrest occurs. Use antibiotics, IV Fluids, and medical treatment unless specifically selected below: No intubationNo cardioversionNo internal / external pacemaker * Full Code Date Activated Date Inactivated Comments 05/11/2024 11:30 PM 05/12/2024 12:01 AM * Full Code Date Activated Date Inactivated Comments 04/13/2024 9:54 AM 04/19/2024 7:30 PM * LIMITED - No CPR Date Activated Date Inactivated Comments 03/17/2024 9:21 PM 03/23/2024 10:48 PM Question Answer Comments Provide aggressive medical m anagement before a full cardiopulmonary arrest occurs. Use antibiotics, IV Fluids, and medical treatment unless specifically selected below: No intubationNo cardioversion Care Teams Transformer Stock Clerk Relationship Specialty Start Date End Date Yolanda Damon DNP [address] [facility] [address] [address] PCP - General Family Medicine 10/16/23 Maritza oD NP [address] [place] [address] Nurse Practitioner Urology 03/23/24 Michelle Cao, [facility] [address] [place] [address] [place] 10/04/24
--- OUTSIDE RECORDS SUMMARY | 2024-12-27 08:54 | XMS_ITS | Clinical Summary ---
Author Organization [facility] Address [address] [place] [address] Phone Care Team Providers Care Hand Tennis Ball Coverer Name Role Phone Desean Fry MD Primary Care Provider [phone] Allergies Active Allergy Reactions Criticality Noted Date Comments Latex Rash,Itching High 06/21/2020 Can't tolerated wearing latex gloves Statins Itching Medium 06/21/2020 Medications atorvastatin (LIPITOR) 10 MG Tablet Take 10 mg by mouth daily. Active aspirin 81 MG Chewable Tablet Take 81 mg by mouth. 1 Active Blood Glucose Monitoring Suppl Device Check blood sugar every morning before breakfast. 1 Active Ear Drops 6.5 % Solution instill FIVE drops by otic route every DAY into affected ears 3 Active glipiZIDE (GLUCOTROL XL) 5 MG TABLET SR 24 HR Take 5 mg by mouth. 1 Active Glucose Blood (Glucose Meter Test) Strip Use with blood sugar monitor daily. 1 Active Basaglar KwikPen 100 UNIT/ML Solution Pen-injector INJECT 20 UNIT BY SUBCUTANEOUS ROUTE EVERY DAY 2 Active insulin 70-30, NPH and regular, (NovoLIN 70/30 FlexPen) (70-30) 100 UNIT/ML Suspension Pen-injector 10 Units by Subcutaneous route. 1 Active Insulin Pen Needle (B-D UF III MINI PEN NEEDLES) 31G X 5 MM Misc 1 Each by Does not apply route. 1 Active Lancets Misc Use to check blood sugar daily. 1 Active latanoprost (XALATAN) 0.005 % Solution Place 1 Drop in affected eye(s). 9 Active losartan-hydroc hlorothiazide (HYZAAR) 50-12.5 MG Tablet Take 1 Tablet by mouth daily. Active metFORMIN (GLUCOPHAGE) 1000 MG Tablet Take 1 Tablet by mouth 2 times daily. 1 Active metoprolol tartrate (LOPRESSOR) 100 MG Tablet Take 100 mg by mouth 2 times daily. 2 Active NEEDLE, DISP, 30 G (BD Disp [place]) 30G X 1/2 Misc 1 Each by Does not apply route. 1 Active NIFEdipine (PROCARDIA-XL) 30 MG TABLET SR 24 HR Take 60 mg by mouth. Active potassium chloride CR (KLORCON) 10 MEQ Tablet Controlled Release TAKE 1 TABLET BY MOUTH EVERY DAY WITH FOOD 3 Active Active Problems Problem Noted Date Diagnosed Date Cerebrovascular accident 07/31/2020 Age-related cataract of left eye 07/11/2020 Overview (07/11/2020): The patient was examined, the H and P and other relevant medical records were reviewed. No changes that are significant for the planned course of treatment have occurred. JOSE F SMITH MD, 07/11/2020, 7:59 AM CDT Age-related cataract of right eye 06/27/2020 Overview (06/27/2020): The patient was examined, the H and P and other relevant medical records were reviewed. No changes that are significant for the planned course of treatment have occurred. 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 Uncontrolled hypertension 02/22/2014 Poorly controlled diabetes mellitus 02/08/2014 Anxiety disorder 05/24/2013 Social History Tobacco Use Types Packs/Day Years Used Date Smoking Tobacco: Never Smokeless Tobacco: Never Tobacco Cessation:Counseling Given: Not Answered Alcohol Use Standard Drinks/Week Comments Not Currently 0 (1 standard drink = 0.6 oz pur e alcohol) Comments Unknown Sex and Gender Information Value Date Recorded Sex Assigned at Not on file Legal Sex Female 7:17 PM CDT Gender Identity Not on file Sexual Orientation Not on file Last Filed Vital Signs Vital Sign Reading Time Taken Comments Blood Pressure 192/84 07/11/2020 9:16 AM CDT Pulse 85 05/17/2022 9:38 AM BALL TRUING MACHINE OPERATOR Temperature 36.2 C (97.2 F) 07/11/2020 9:16 AM CDT Respiratory Rate 18 07/11/2020 9:1 6 AM CDT Oxygen Saturation 97% 05/17/2022 9:38 AM BALL TRUING MACHINE OPERATOR Inhaled Oxygen Concentration - - Weight 71.5 kg (157 lb 11.2 oz) 05/17/2022 9:38 AM BALL TRUING MACHINE OPERATOR Height 162.6 cm (5' 4) 05/17/2022 9:38 AM BALL TRUING MACHINE OPERATOR Body Mass Index 27.07 05/17/2022 9:38 AM BALL TRUING MACHINE OPERATOR Plan of Treatment Health Maintenance Due Date Last Done Comments Diabetes: Eye Exam 1955 Diabetes: Foot Exam 1955 Hepatitis C Virus (HCV) Screening 1955 TdaP Immunization 1955 Cologuard 2001 Colonoscopy 2001 Colorectal Cancer Screening 2001 Immunochemical Fecal Occult Blood 2001 Zoster Immunization (1 of 2) 2006 Respiratory Syncytial Virus (RSV) Immunization (Adult) (1 - Risk 60-74 years 1-dose series) 2016 Diabetes: Nephropathy Screening 01/05/2019 01/05/2018 Diabetes: Hemoglobin A1c 01/31/2021 021, 01/05/2018, 08/08/2015 Medicare Initial AWV [id number] 08/29/2022 Pneumococcal Immunization (5 0+ years) (2 of 2 - PCV) 02/11/2023 02/11/2022 Influenza Immunization (#1) 11/29/202401/29, 01/10/2021 SARS-COV-2 Immunization ( - season) 2024 Mammogram Discontinued 03/16/2020, 12/30/2018 Pneumococcal Immunization Combined Discontinued 02/11/2022 Hepatitis B Immunization Aged Out No longer eligible based on patient's age to complete this topic Human Papillomavirus (HPV) Immunization Aged Out No longer eligible based on patient's age to complete this topic Meningococcal Immunization (ACWY) Aged Out No longer eligible based on patient's age to complete this topic Rotavirus Immunization Aged Out No lo nger eligible based on patient's age to complete this topic Medical Devices Implanted Type Area Breast Splitter Device Identifier Shelf Expiration Date Model / Serial / Lot Iol Lens Intraocular [id number] - [id number] Implanted:Qty: 1 on 06/27/2020 by Jose F Smith MD at [facility] IMPLANT Right: Eye [employer] 11/20/2024 [id number] / [id number] / N/A Iol Lens Intraocular Sa60wf - [id number] Implanted:Qty: 1 on 07/11/2020 by Jose F Smith MD at [facility] IMPLANT Left: Eye [employer] 09/05/2024 [id number] / [id number] / UNKNOWN Procedures Procedure Name Priority Date/Time Associated Diagnosis Comments [facility] SCREENING BILATERAL DIGITAL W CAD Routine 03/16/2020 1:33 PM BALL TRUING MACHINE OPERATOR Visit for screening mammogram CMP (COMPREHENSIVE METABOLIC PANEL) Routine 01/05/2018 9:39 AM CDT Type 2 diabetes mellitus with complication, unspecified whether delivery architect insulin use (HCC) Hypertension, essential HEMOGLOBIN A1C W/ ESTIMATED GLUCOSE Routine 01/05/2018 9:39 AM CDT Type 2 diabetes mellitus with complication, unspecified whether delivery architect insulin use (HCC) Hypertension, essential from Last 3 Months or Most Recently Relevant to Health Maintenance Results * [facility] SCREENING BILATERAL DIGITAL W CAD (03/16/2020 1:33 PM BALL TRUING MACHINE OPERATOR) Anatomical Region Laterality Modality breast Bilateral Mammography 03/16/2020 1:42 PM BALL TRUING MACHINE OPERATOR Impressions 03/16/2020 1:42 PM BALL TRUING MACHINE OPERATOR ASSESSMENT: BI-RADS 0; NEED ADDITIONAL IMAGING EVALUATION RECOMMENDATIONS: Special views: mag and ultrasound of the left breast. CAD used DICTATION LOCATION: [facility] Signed By: Justin Santana M.D. Narrative 03/16/2020 1:42 PM BALL TRUING MACHINE OPERATOR PATIENT HISTORY: No known family history of cancer. Benign right stereotactic core biopsy, November 05, 2010. Benign excisional biopsy of the left breast, September 23, 2003. Last mammogram was performed 1 year and 2 months ago. REASON FOR EXAM: screening, asymptomatic. FINDINGS: [facility] SCREENING BILATERAL DIGITAL W CAD Bilateral CC and MLO view(s) were taken. Technologist: Luiza Retana RT(R)(M) Prior study comparison: December 30, 2018, [facility] SCREENING BILATERAL DIGITAL W CAD performed at [facility]. The breast tissue is scattered fibroglandular densities. Finding: Mass Laterality: left , Size: 3mm x 4mm at 1 o'clock Quadrant: upper outer, Depth: middle The mass is oval. The density is high density. Desean Fry MD IMG MAMMO ORDERABLES Final R esult * (ABNORMAL) HEMOGLOBIN A1C W/ ESTIMATED GLUCOSE (01/05/2018 9:39 AM CDT) HGB-A1C 11.1(H) 4.0 - 6.0 % 01/05/2018 10:37 AM CDT [facility] Blood specimen (specimen) Venipuncture / Unknown 01/05/2018 9:39 AM CDT 01/05/2018 9:40 AM CDT Narrative [facility] - 01/05/2018 10:37 AM CDT Per ADA recommendations, HbA1c <7% is the goal for glycemic control, >8% suggests additional action needed. ([employer] Dimension [place] HbA1c method) This assay measures any hemoglobin variants that are glycated at the beta-chain N-terminus and have epitopes identical to that of HbA1c. Hemoglobins D, C, E and S do not interfere with this method. Samples containing >10% Hemoglobin F will yield lower than expected results. The effect of other variant hemoglobins has not been assessed. us Yash Carey MD CHEMISTRY ORDERABLES Final Resu lt [facility] [address] [place] [address] * (ABNORMAL) CMP (COMPREHENSIVE METABOLIC PANEL) (01/05/2018 9:39 AM CDT) SODIUM 141 133 - 145 mmol/L 01/05/2018 10:36 AM [facility] POTASSIUM 3.8 3.5 - 5.1 mmol/L 01/05/2018 10:36 AM [facility] CHLORIDE 105 96 - 108 mmol/L 01/05/2018 10:36 AM [facility] CO2, VENOUS 26 21 - 32 mmol/L 01/05/2018 10:36 AM [facility] ANION GAP 13.8 10.0 - 20.0 mmol/L 01/05/2018 10:36 AM [facility] GLUCOSE 195(H) 80 - 115 mg/dL 01/05/2018 10:36 AM [facility] BUN 14 6 - 19 mg/dL 01/05/2018 10:36 AM [facility] CREATININE, BLOOD 0.70 0.40 - 1.10 mg/dL 01/05/2018 10:36 AM [facility] BUN/CREATININE RATIO 20 12 - 20 ratio 01/05/2018 10:36 AM [facility] TOTAL PROTEIN 8.3(H) 6.0 - 8.2 g/dL 01/05/2018 10:36 AM [facility] ALBUMIN 3.9 3.4 - 4.8 g/dL 01/05/2018 10:36 AM [facility] CALCIUM 9.3 8.8 - 10.0 mg/dL 01/05/2018 10:36 AM [facility] T BILI 0.3 0.0 - 1.0 mg/dL 01/05/2018 10:36 AM [facility] SGOT (AST) 10 0 - 37 U/L 01/05/2018 10:36 AM [facility] SGPT (ALT) 21 12 - 45 U/L 01/05/2018 10:36 AM [facility] ALKALINE PHOSPHATASE 79 39 - 117 U/L 01/05/2018 10:36 AM [facility] GFR, EST. NONAFRICAN >60 01/05/2018 10:36 AM [facility] Comment: Reference interval for MDRD GFR: GFR >=60: Satisfactory kidney function GFR <60: Chronic kidney disease GFR <15: Kidney failure Estimated GFR may be less reliable in patients >70yr, women, patients with serious comorbid conditions, or patients with extremes of body size, muscle mass, or nutritional status. Revised 06/24/07 (National Kidney Disease Education Program) GFR, EST. >60 >=60 018 10:36 AM T [facility] Comment: Reference interval for MDRD GFR: GFR >=60: Satisfactory kidney function GFR <60: Chronic kidney disease GFR <15: Kidney failure Estimated GFR may be less reliable in patients >70yr, women, patients with serious comorbid conditions, or patients with extremes of body size, muscle mass, or nutritional status. Revised 06/24/07 (National Kidney Disease Education Program) Blood specimen (specimen) Venipuncture / Unknown 01/05/2018 9:39 AM CDT 01/05/2018 9:[address] [facility] - 01/05/2018 10:36 AM CDT Venipuncture should occur prior to sulfasalazine and/or sulfapyridine administration due to the potential for falsely depressed results for ALT and AST. Glucose can be falsely depressed after administration of sulfasalazine, and falsely elevated with administration of sulfapyridine. us Yash Carey MD CHEMISTRY ORDERABLES Final Resu lt [facility] [address] [place] [address] from Last 3 Months or Most Recently Relevant to Health Maintenance Insurance MEDICARE C [employer] Care Teams Hand Tennis Ball Coverer Relationship Specialty Start Date End Date Desean Fry MD [address] [place] [address] PCP - General Internal Medicine 03/16/20
[2024-12-27 11:17] LABS: Hematocrit 35.6 % (37.0-47.0); Hemoglobin 10.7 g/dL (12.0-15.0)
[2024-12-27 11:27] LABS: INR 1.2; Prothrombin Time 14.9 Seconds (11.1-14.7)
[2024-12-27 11:28] LABS: Partial Thromboplastin Time 25.2 Seconds (22.3-36.8)
[2024-12-27 11:43] LABS: Anion Gap 14 mmol/L (4-12); Blood Urea Nitrogen 37 mg/dL (7-17); Calcium 9.3 mg/dL (8.4-10.2); Carbon Dioxide 24 mmol/L (22-30); Chloride 106 mmol/L (98-107); Estimated Glomerular Filt Rate 26; Glucose 157 mg/dL (65-110); Potassium 3.7 mmol/L (3.4-5.0); Sodium 144 mmol/L (137-145)
== END 2024-12-27 08:31 | disposition home or self-care (01) ==
LOC: ANHSURGERY 08:42
PROVIDERS: Anesthesiology; Visit Provider Urology
DX: E11.9 Type 2 diabetes mellitus without complications (principal); D50.9 Iron deficiency anemia, unspecified; R33.9 Retention of urine, unspecified; I12.9 Hypertensive chronic kidney disease with stage 1 through stage 4 chronic kidney disease, or unspecified chronic kidney disease; N18.9 Chronic kidney disease, unspecified
CPT/HCPCS: 36415; 80048; 85014; 85018; 85610; 85730; 93005

== ENCOUNTER 2024-12-31 01:21 | Day surgery (SDC) | payer MEDICARE, SELFPAY ==
--- OUTSIDE RECORDS SUMMARY | 2024-05-18 08:07 | XMS_ITS | Continuity of Care Document ---
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 Role Phone Jevon PT, DPT, Felecia Unavailable Unavaila ble Procedures Procedure Date Therapeutic Activities Neuromuscular Re-Ed Therapeutic Activities Neuromuscular Re-Ed Therapeutic Activities Neuromuscular Re-Ed Therapeutic Exercise Doc neg elder mal no plan PRES/ABSN URINE INCON ASSESS PT Evaluation High Complexity Therapeutic Activities Therapeutic Exercise Advance Directives Directive Yes / No Effective Date File Name No Information Encounters Encounter Description Practice Location Reason(s) For Visit Diagnoses Date Provider Providers Copied on Encounter [facility] [address], [place], [place], [id number], tel:[phone] [place] No Information 5 Jevon Mari . [facility], [place], [id number], tel:[phone] [place] No Information 4 Jevon Izquierdo. . Referring Provider: Yolanda Morales, [address] [place] [address], [place], [address]. tel:[phone] [facility] [address], [place], [place], [id number], tel:[phone] [place] No Information Feb-1 0- 4 Escoto Felecia. . Referring Provider: Yolanda Morales, [address] [place] [address], [place], [address]. tel:[phone] [facility], [address] [address], [place], [place], [id number], tel:[phone] [place] No Information Feb-0 - 4 [place] Felecia. . Referring Provider: Yolanda Morales, [address] [place] [address], [place], [address]. tel:[phone] [facility], [address] [place] [address], [place], [place], [id number], tel:[phone] [place] Unspecified urinary incontinence 4 Escoto Felecia. . Referring Provider: Yolanda Morales, [address] [place] [address], [place], [address]. tel:[phone] Family History Family Member Type Diagnosis Age At Onset No Information Payers Payer name Insurance type Covered green party ID Authorbellaa deena(s) [employer] [facility] [employer] [id number] Social History Type Description Quantity Date Captured Comments Sex Female Smoking Status No Information Chief Complaint And Reason For Visit No Information Reason For Referral Reason For Referral No Information History Of Present Illness Encounter Date Complaint History Of Prese nt Illness No Information Functional Status Date Functional Assessmen t No Information Instructions Date Instruction Additional Infor tami Kegel exercises were explained to the patient. Related to Unspecified urinary incontinence Assessments Type Assessment Date No Information Patient Care Teams Name Effective Dates (start - stop) Status Members No Information
--- NOTE | 2024-12-24 13:03 | PC.NURSE ---
[facility] has started construction of its new state of the art ER which will open Spring 2026. With this, we anticipate parking may be a challenge for some our surgical patients and families. Parking spaces are limited but are available for all Surgical, obstetrics, and ER patients sharing this lot. If you arrive and find you are having a hard time finding a parking space, please note that we understand the challenges, please drive around the hospital and park near Hospital Entrance 1. When you enter this entrance, you can ask a volunteer to direct or take you back to the surgical waiting area to check in. We appreciate everyone?s understanding of these expected challenges while we build for your future. Report to the Outpatient Waiting Room, entrance under the green pavilion located off [address], at time __8:15 AM on date __12/31/24 . Planned Procedure Time: __10:15 AM .? Time changes happen often and if your time is changed the preop area will call you the afternoon before. - You and your visitor will be asked to self-screen and do not enter if you have any COVID symptoms. Please call surgeon if you need to reschedule. - A mask is optional within the hospital at this time. Patients may have clear liquids (water, carbonated beverages, clear teas, apple juice) until 3 hours prior to surgery( 7:15 AM) with a maximum of 20 ounces. - No food from midnight until time of surgery and no smoking, or chewing tobacco (or any form of nicotine). No chewing gum, candy or mints. Take only the following medications with a SIP of water on the morning of surgery: _AMLODIPINE,BUPROPION,METOPROLOL DO NOT STOP ANY OF YOUR OTHER PRESCRIPTION MEDICATIONS PRIOR TO SURGERY EXCEPT THE FOLLOWING Hold all vitamins and supplements for 3 days per anesthesiologist.LAST DOSE 12/27/24 Medications to discontinue per physician ASPIRIN HOLD 7 DAYS PRE OP PER DR ARMENDARIZ Date to take last dose____12/23/24 Please no make-up, nail bengali, hairspray, perfume, deodorant, or body powder the day of surgery.? No jewelry (including any body piercings) or valuables the day of surgery, leave them at home.? Please take a shower or bath the night before, or the morning of, surgery with an antibacterial soap.? Wear comfortable, loose fitting clothing.? Children are encouraged to wear pajamas. - Jewelry must be removed prior to entering the operating room.? Rings and piercings that are not removed may be cut off. - The hospital will not accept responsibility for valuables.? - Please leave all valuables, including medications, at home the day of surgery. If you are going home after surgery, a licensed roll off driver must drive you home.? - NO public transportation without another adult if you receive anesthesia. - We recommend that an adult stay with you for 24 hours following discharge. - We also recommend that you do not drive, make important decision, drink alcoholic beverages, or take any drugs that were not prescribed by your health care provider for at least 24 hours after your discharge time. Follow any additional instructions given to you from your surgeon. Telephone instructions given to __JOS PARMAR and asked if any additional questions and then verbalized understanding. Patient advised to call surgeon office or pre surgery nurse liaison [phone] if any additional questions.
[2024-12-24 13:27] VITALS: BMI 20.7
--- NOTE | 2024-12-26 09:00 | PM.IMHP ---
H&P: HPI History of Present Illness Date/Time: 12/26/24 09:00 Chief Complaint: procedure Narrative: functional incontinence and incomplete bladder emptying Review of Systems Review of Systems: All systems reviewed & are unremarkable except as noted in HPI and below PMFSH Social History Social History Smoking status: Never smoker Living arrangements: with family Spiritual care concerns: No Meds Home Medications and Allergies Home Medications ?Medication ?Instructions ?Recorded ?Confirmed ?Type amlodipine 10 mg tablet 10 mg PO DAILY 12/24/24 12/24/24 History aspirin 81 mg chewable tablet 1 tablet PO DAILY 12/24/24 12/24/24 History atorvastatin 20 mg tablet 80 mg PO QPM 12/24/24 12/24/24 History bupropion HCl 150 mg 24 hr tablet, 150 mg PO DAILY 12/24/24 12/24/24 History extended release calcitriol 0.25 mcg capsule 0.25 mcg PO 3XW 12/24/24 12/24/24 History cholecalciferol (vitamin D3) 50 2,000 unit PO DAILY 12/24/24 12/24/24 History mcg (2,000 unit) capsule doxazosin 8 mg tablet 8 mg PO HS 12/24/24 12/24/24 History dulaglutide 0.75 mg/0.5 mL 0.75 mg subcut WEEKLY 12/24/24 12/24/24 History subcutaneous pen injector (Trulicity) ferrous sulfate 325 mg (65 mg 325 mg PO DAILY 12/24/24 12/24/24 History iron) tablet furosemide 40 mg tablet 40 mg PO DAILY 12/24/24 12/24/24 History gabapentin 300 mg capsule 300 mg PO HS 12/24/24 12/24/24 History insulin lispro 100 unit/mL subcut 12/24/24 History subcutaneous pen metoclopramide HCl 5 mg tablet 10 mg PO BID 12/24/24 12/24/24 History metoprolol tartrate 50 mg tablet 50 mg PO Q12H 12/24/24 12/24/24 History multivitamin (Daily Value tablet) 1 tablet PO DAILY 12/24/24 12/24/24 History sertraline 100 mg tablet 100 mg PO HS 12/24/24 12/24/24 History spironolactone 25 mg tablet 50 mg PO Q12H 12/24/24 12/24/24 History Allergies Allergy/AdvReac Type Severity Reaction Status Date / Time No Known Allergies Allergy Verified 12/24/24 12:52 Exam Narrative: thin NAD Assessment and Plan Assessment and plan (1) Functional incontinence: Code(s): R39.81 - Functional urinary incontinence Status: Acute (2) Incomplete bladder emptying: Code(s): R33.9 - Retention of urine, unspecified Status: Acute Plan cystoscopy, SP tube
--- OUTSIDE RECORDS SUMMARY | 2024-12-31 01:24 | XMS_ITS | Clinical Summary ---
Author Organization [facility] Address [facility] [place] [address] Care Team Providers Care Plastic Manager Name Role Phone Yolanda Damon WASHHOUSE HAND Primary Care Prov ider Allergies Active Allergy Reactions Criticality Noted Date Comments Latex Rash,Itching Medium 06/21/2020 Can't tolerate wearing latex gloves Statins Itching Low 11/12/2011 Medications NEEDLE, DISP, 30 G (BD DISP NEEDLES) 30G X 1/2 MiscIndication s:Poorly controlled diabetes mellitus ([facility]) 1 each by Does not apply route 2 (two) times a day. 200 each 1 09/08/19 21 Active Insulin Pen Needle (B-D UF III MINI PEN NEEDLES) 31G X 5 MM MiscIndication s:Poorly controlled diabetes mellitus ([facility] HHS/HCC) 1 each by Does not apply route 2 (two) times a day. 200 each 1 09/16/19 21 Active Lancets MiscIndication s:Poorly controlled diabetes mellitus ([facility]) Use to check blood sugar daily. 100 each 2 10/13/19 21 Active Glucose Blood (GLUCOSE METER TEST) test stripIndicatio ns:Poorly controlled diabetes mellitus ([facility]) Use with blood sugar monitor daily. 100 strip 5 10/13/19 21 Active Blood Glucose Monitoring Suppl DeviceIndicati ons:Poorly controlled diabetes mellitus ([facility]) Check blood sugar every morning before breakfast. 1 Device 10/13/19 21 Active glipiZIDE XL 5 MG 24 hr tabletIndicati ons:DM Take 1 tablet (5 mg total) by mouth 2 (two) times a day. 180 tablet 1 10/14/19 21 Active metoprolol tartrate 100 MG tabletIndicati ons:HTN Take 1 tablet (100 mg total) by mouth 2 (two) times daily. 180 tablet 1 10/22/19 21 Active lisinopril-hyd roCHLOROthiazi de (ZESTORETIC) 10-12.5 MG tabletIndicati ons:HTN Take 1 tablet by mouth daily. Indications: HTN Active metFORMIN ER (GLUCOPHAGE-XR ) 500 MG 24 hr tabletIndicati ons:DM Take 2 tablets by mouth daily with breakfast. Indications: DM Active aspirin EC (ECOTRIN) 81 MG tabletIndicati ons:anticoagul ation Take 1 tablet by mouth daily. 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 Uncontrolled hypertension 02/22/2014 Poorly controlled diabetes mellitus ([facility]) 02/08/2014 Anxiety disorder 05/24/2013 Encounters Date Type Department Care Team Description 11/18/2024 9:00 AM CDT Home Care Visit [place] [address] [facility] [address] Елена Roque RN SN OASIS DISCHARGE/ASSESSMENT 11/18/2024 Home Care Visit [address] [facility] [address] Елена Roque RN [facility] 11/16/2024 9:00 AM CDT Home Care Visit [place] [address] [facility] [place] [address] David Daniel, PT PT NON-VISIT DISCIPLINE DISCHARGE 11/10/2024 10:30 AM CDT Home Care Visit [place] [address] [place] [address] Priya Bean RN SN HOME PRN VISIT 11/09/2024 12:30 PM CDT Home Care Visit [place] [address] [place] [address] David Daniel, PT PT HOME VISIT 11/03/2024 11:45 AM CDT Home Care Visit [address] [place] [address] Junior Wolfe, FULL STACK JAVA DEVELOPER FULL STACK JAVA DEVELOPER HOME VISIT 11/01/2024 12:45 PM CDT Home Care Visit [facility] Home [address] [phone] Junior Wolfe, FULL STACK JAVA DEVELOPER FULL STACK JAVA DEVELOPER HOME VISIT 11/01/2024 8:45 AM CDT Home Care Visit [address] [place] [address] Philip Rojas, OT OT DISCIPLINE DISCHARGE 10/29/2024 11:45 AM CDT Home Care Visit [address] [place] [phone] Junior Wolfe, FULL STACK JAVA DEVELOPER FULL STACK JAVA DEVELOPER HOME VISIT 10/28/2024 10:00 AM CDT Home Care Visit [address] [place] [address] Елена Roque, RN SN DISCIPLINE DISCHARGE 10/28/2024 Home Care Visit [address] [place] [phone] Елена Roque, RN [facility] 10/27/2024 1:30 PM CDT Home Care Visit [facility] Home [address] [place] [phone] Socorro Allen CNA CASE COMMUNICATION 10/27/2024 Home Care Visit [facility] Home [address] [place] [address] Елена Roque, RN CASE COMMUNICATION 10/26/2024 9:15 AM CDT Home Care Visit [facility] [place] [address] [place] [phone] Junior Wolfe, FULL STACK JAVA DEVELOPER FULL STACK JAVA DEVELOPER HOME VISIT 10/22/2024 1:30 PM CDT Home Care Visit [facility] [place] [address] [place] [address] Socorro Allen CNA CASE COMMUNICATION 10/22/2024 8:45 AM CDT Home Care Visit [facility] Home Care [place] [address] [place] [address] Philip Rojas, OT OT INITIAL EVALUATION 10/22/2024 8:00 AM CDT Home Care Visit [place] [address] [place] [phone] Junior Wolfe, FULL STACK JAVA DEVELOPER FULL STACK JAVA DEVELOPER HOME VISIT 10/20/2024 Home Care Visit [place] [address] [place] [phone] Елена Roque, RN CASE COMMUNICATION 10/20/2024 Home Care Visit [place] [address] [place] [phone] Елена Roque, RN SN TELEPHONE CALL 10/19/2024 11:30 AM CDT Home Care Visit [facility] Home [place] [address] [place] [phone] Lisseth Goodrich, PT PT INITIAL EVALUATION 10/19/2024 9:00 AM CDT Home Care Visit [facility] Care [place] [address] [place] [address] Janelle Mchugh, CAT DOG OR OTHER PET GROOMER SN HOME VISIT 10/16/2024 Plan of Care Documentation [facility] [place] [address] [place] [address] 10/15/2024 10:00 AM CDT Home Care Visit [facility] Home [place] [address] [facility] [place] [address] Sofi Keys RN SN OASIS START OF CARE from Last 3 Months Family History Medical History Relation Comments Diabetes Mother Hypertension Mother Relation Status Comments Mother Social History Tobacco Use Types Packs/Day Years Used Date Smoking Tobacco: Never Smokeless Tobacco: Never Tobacco Cessation:Counseling Given: No Alcohol Use Standard Drinks/Week Comments No 0 (1 standard drink = 0.6 oz pur e alcohol) OASIS D0700: Social Isolation Answer Da te Recorded Frequency of experiencing loneliness or isolatio n Never 11/18/2024 OASIS A1250: Transportation Answer Date Recorded Lack of Transportation (Medical) No 11/18/2024 Lack of Transportation (Non-Medical) No 11/18/2024 Patient Unable or Declines to Respond No 11/18/2024 OASIS B1300: Health Literacy Answer Tod e Recorded Frequency of needing help to read materials from doctor or pharmacy Never 11/18/2024 AUDIT-C Answer Date Recorded Frequency of Alcohol Consumption Never 03/10/2018 Average Number of Drinks Not on file 018 Frequency of Binge Drinking Not on file 02/28 PHQ-2 Answer Date Recorded PHQ-2 Score - If the patient scores above 3, please move on to questions 3-9 0 10/12/2020 Comments No Sex and Gender Information Value Date Recorded Sex Assigned at Not on file Legal Sex Female 1:41 PM CDT Gender Identity Not on file Sexual Orientation Not on file Last Filed Vital Signs Vital Sign Reading Time Taken Comments Blood Pressure 134/64 11/18/2024 8:55 AM CDT Pulse 54 11/18/2024 8:55 AM CDT Temperature 36.3 C (97.4 F) 11/10/2024 11:35 AM CDT Respiratory Rate 18 11/18/2024 8:55 AM CDT Oxygen Saturation 95% 11/18/2024 8:55 AM CDT Inhaled Oxygen Concentration - - Weight 69.9 kg (154 lb) 02/03/2023 10:00 AM METAL FINISHER Height 163.8 cm (5' 4.5) 02/03/2023 10:00 AM CS T Body Mass Index 26.03 02/03/2023 10:00 AM METAL FINISHER Plan of Treatment Health Maintenance Due Date Last Done Comments Colorectal Cancer Screening Colonoscopy (10 Years) 1955 Kidney Health Evaluation 1955 Hepatitis C 1974 DTaP, Tdap and Td Vaccines (1 - Tdap) 1975 Zoster Vaccines (1 of 2) 2006 Annual Medicare Wellness Visit 2021 Lipid Panel 08/01/2021 08/01/2020, 03/31, 01/05/2018, Additional history exists Diabetes: Retinopathy Eye Exam 11/28/2022 11/28/2020 Pneumococcal Vaccine: 50+ Years (2 of 2 - PCV) 02/11/2023 02/11/2022 COVID-19 Vaccine (1 - season) 2024 Hemoglobin A1C 04/22/2025 10/20/2024, 2 08/2024, 03/19/2024, Additional history exists Mammogram Screening 12/14/2025 12/15/2023, 03/28/2020, 03/16/2020, Additional history exists RSV Immunization or 60+ Years (1 - 1-dose 75+ series) 2031 Dexa Scan (General) Completed 11/05/2023, 4 Meningococcal B Vaccine Aged Out No l onger eligible based on patient's age to complete this topic Meningococcal Vaccine Aged Out No marcos anjum eligible based on patient's age to complete this topic RSV Immunizations Under 20 Months Aged Out No longer eligible based on patient's age to complete this topic Procedures Procedure Name Priority Date/Time Associated Diagnosis Comments DIABETIC RETINOPATHY EXAM (POSITIVE)(SCAN ORDER) Routine 11/28/2020 LIPID PANEL Routine 08/01/2020 3:35 AM CDT HEMOGLOBIN, GLYCOSYLATED Routine 07/31/2020 2:13 PM CDT from Last 3 Months or Most Recently Relevant to Health Maintenance Results * DIABETIC RETINOPATHY EXAM (POSITIVE)(SCAN) (11/28/2020) us Documents Scanned SCANNING Final Result [facility] * (ABNORMAL) LIPID PANEL (08/01/2020 3:35 AM CDT) CHOLESTEROL 238 MG/DL 08/01/2020 5:39 AM CDT [facility] Comment:BORDERLINE HIGH: 200 -239 TRIGLYCERIDES 147 MG/DL 08/01/2020 5:39 AM CDT [facility] Comment:<150 NORMAL HDL 47(L) >49 MG/DL 08/01/2020 5:39 AM CDT [facility] LDL-C 162 MG/DL 08/01/2020 5:39 AM CDT [facility] Comment:160-189 HIGH VLDL CALCULATION 29 MG/DL 08/02/19 5:39 AM CDT [facility] Comment:REFERENCE RANGE NOT ESTABLISHED CHOL/HDL RATIO 5.1 08/01/2020 5:39 AM CDT [facility] Comment:REFERENCE RANGE NOT ESTABLISHED LDL/HDL 3.0 08/01/2020 5:39 AM T [facility] Comment:REFERENCE RANGE NOT ESTABLISHED NON HDL CHOLESTEROL 191 MG/DL 08/01/2020 5:39 AM CDT [facility] Comment:REFERENCE RANGE NOT ESTABLISHED 08/01/2020 3:35 AM CDT us Lisa Brooks MD LABORATORY Final Resu lt [facility] [address] [place] [address], from Last 3 Months or Most Recently Relevant to Health Maintenance Insurance [place] [employer] MEDICARE Advance Directives * Full Code (Latest Code Status on File) Date Activated Date Inactivated Comments 10/17/2024 11:46 AM * Full Code Date Activated Date Inactivated Comments 07/31/2020 8:02 PM 08/01/2020 8:00 PM Care Teams Plastic Manager Relationship Specialty Start Date End Date Yolanda Damon APRN [address] [place] [address] PCP - General Nurse Practitioner Family 09/22/24
--- OUTSIDE RECORDS SUMMARY | 2024-12-31 01:24 | XMS_ITS | Clinical Summary ---
Author Organization [facility] Address [address] [place] [address] Phone Care Team Providers Care Cold Rolling Machine Setter Name Role Phone Desean Fry MD Primary Care Provider [phone] Allergies Active Allergy Reactions Criticality Noted Date [...] Active NEEDLE, DISP, 30 G (BD Disp [place]) 30G X 1/2 Misc 1 Each by [...] AM CDT Pulse 85 05/17/2022 9:38 AM DOG DAYCARE PROVIDER Temperature 36.2 C (97.2 F) 07/11/2020 9:16 AM CDT Respiratory Rate 18 07/11/2020 9:16 AM CDT Oxygen Saturation 97% 05/17/2022 9:38 AM DOG DAYCARE PROVIDER Inhaled Oxygen Concentration - - Weight 71.5 kg (157 lb 11.2 oz) 05/17/2022 9:38 AM DOG DAYCARE PROVIDER Height 162.6 cm (5' 4) 05/17/2022 9:38 AM DOG DAYCARE PROVIDER Body Mass Index 27.07 05/17/2022 9:38 AM DOG DAYCARE PROVIDER Plan of Treatment Health Maintenance Due Date [...] this topic Medical Devices Implanted Type Area Zipper Setter Lockstitch Device Identifier Shelf Expiration Date Model / Serial / Lot Iol Lens Intraocular [id number] - [id number] Implanted:Qty: 1 on 06/27/2020 by Jose F Smith MD at [facility] IMPLANT Right: Eye [employer] 11/20/2024 [id number] / [id number] / N/A Iol Lens Intraocular Sa60wf - [id number] Implanted:Qty: 1 on 07/11/2020 by Jose F Smith MD at [facility] IMPLANT Left: Eye [employer] 09/05/2024 [id number] / [id number] / UNKNOWN Procedures Procedure Name Priority Date/Time Associated Diagnosis Comments ISIDRO SCREENING BILATERAL DIGITAL W CAD Routine 03/16/2020 1:33 PM DOG DAYCARE PROVIDER Visit for screening mammogram CMP (COMPREHENSIVE METABOLIC PANEL) Routine 01/05/2018 9:39 AM CDT Type 2 diabetes mellitus with complication, unspecified whether mcc insulin use (HCC) Hypertension, essential HEMOGLOBIN A1C W/ ESTIMATED GLUCOSE Routine 01/05/2018 9:39 AM CDT Type 2 diabetes mellitus with complication, unspecified 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 CAD used DICTATION LOCATION: [facility] Signed By: Justin Santana M.D. Narrative 03/16/2020 1:42 PM DOG DAYCARE PROVIDER PATIENT HISTORY: No known family history of cancer. Benign right stereotactic core biopsy, November 05, 2010. Benign excisional biopsy of the left breast, September 23, 2003. Last mammogram was performed 1 year and 2 months ago. REASON FOR EXAM: screening, asymptomatic. FINDINGS: [facility] SCREENING BILATERAL DIGITAL W CAD Bilateral CC and MLO view(s) were taken. Technologist: Luiza Retana, RT(R)(M) Prior study comparison: December 30, 2018, [facility] SCREENING BILATERAL DIGITAL W CAD performed at [facility]. The breast tissue is scattered fibroglandular densities. Finding: Mass Laterality: left , Size: 3mm x 4mm at 1 o'clock Quadrant: upper outer, Depth: middle The mass is oval. The density is high density. Desean Fry MD IMG MAMMO ORDERABLES Final R esult * (ABNORMAL) HEMOGLOBIN A1C W/ ESTIMATED GLUCOSE (01/05/2018 9:39 AM CDT) HGB-A1C 11.1(H) 4.0 - 6.0 % 01/05/2018 10:37 AM CDT [facility] Blood specimen (specimen) Venipuncture / Unknown 01/05/2018 9:39 AM CDT 01/05/2018 9:40 AM CDT Narrative [facility] - 01/05/2018 10:37 AM CDT Per ADA recommendations, HbA1c <7% is the goal for glycemic control, >8% suggests additional action needed. ([employer] [place] HbA1c method) This assay measures any hemoglobin [...] Carey MD CHEMISTRY ORDERABLES Final Resu lt [facility] [address] [place] [address] * (ABNORMAL) CMP (COMPREHENSIVE METABOLIC PANEL) (01/05/2018 9:39 AM CDT) SODIUM 141 133 - 145 mmol/L 01/05/2018 10:36 AM [facility] POTASSIUM 3.8 3.5 - 5.1 mmol/L 01/05/2018 10:36 AM [facility] CHLORIDE 105 96 - 108 mmol/L 01/05/2018 10:36 AM [facility] CO2, VENOUS 26 21 - 32 mmol/L 01/05/2018 10:36 AM [facility] ANION GAP 13.8 10.0 - 20.0 mmol/L 01/05/2018 10:36 AM [facility] GLUCOSE 195(H) 80 - 115 mg/dL 01/05/2018 10:36 AM [facility] BUN 14 6 - 19 mg/dL 01/05/2018 10:36 AM [facility] CREATININE, BLOOD 0.70 0.40 - 1.10 mg/dL 01/05/2018 10:36 AM [facility] BUN/CREATININE RATIO 20 12 - 20 ratio 01/05/2018 10:36 AM [facility] TOTAL PROTEIN 8.3(H) 6.0 - 8.2 g/dL 01/05/2018 10:36 AM [facility] ALBUMIN 3.9 3.4 - 4.8 g/dL 01/05/2018 10:36 AM [facility] CALCIUM 9.3 8.8 - 10.0 mg/dL 01/05/2018 10:36 AM [facility] T BILI 0.3 0.0 - 1.0 mg/dL 01/05/2018 10:36 AM [facility] SGOT (AST) 10 0 - 37 U/L 01/05/2018 10:36 AM [facility] SGPT (ALT) 21 12 - 45 U/L 01/05/2018 10:36 AM [facility] ALKALINE PHOSPHATASE 79 39 - 117 U/L 01/05/2018 10:36 AM [facility] GFR, EST. NONAFRICAN >60 01/05/2018 10:36 AM [facility] Comment: Reference interval for MDRD GFR: GFR >=60: Satisfactory kidney function GFR <60: Chronic kidney disease GFR <15: Kidney failure Estimated GFR may be less reliable in patients >70yr, women, patients with serious comorbid conditions, or patients with extremes of body size, muscle mass, or nutritional status. Revised 06/24/07 (National Kidney Disease Education Program) GFR, EST. >60 >=60 018 10:36 AM T [facility] Comment: Reference interval for MDRD GFR: GFR [...] 9:39 AM CDT 01/05/2018 9:40 AM CDT [facility] - 01/05/2018 10:36 AM CDT Venipuncture should occur prior to sulfasalazine and/or sulfapyridine administration due to the potential for falsely depressed results for ALT and AST. Glucose can be falsely depressed after administration of sulfasalazine, and falsely elevated with administration of sulfapyridine. us Yash Carey MD CHEMISTRY ORDERABLES Final Resu lt [facility] [address] [place] [id number] from Last 3 Months or Most Recently Relevant to Health Maintenance Insurance MEDICARE C [employer] Care Teams Cold Rolling Machine Setter Relationship Specialty Start Date End Date Desean Fry MD [address] [place] [address] PCP - General Internal Medicine 03/16/20
--- NOTE | 2024-12-31 07:17 | WPDHPUPDATE1 ---
History and Physical Update Update Date/Time: 12/31/24 07:17 History and Physical has been reviewed, including an updated exam of the patient. There are NO changes in the patient's condition. Risks, benefits, and alternatives have been discussed and questions answered. Patient agrees to proceed with procedure.
[2024-12-31 09:10] VITALS: BP 166/77; PULSE 68; TEMP 37.1; O2SAT 97; BMI 20.2
[2024-12-31] MEDS: LACTATED RINGERS 1,000 ML 30 ML IV CONT (09:15)
--- NOTE | 2024-12-31 09:53 | WPDANESEPPF ---
Anes - Initial Pre Proc Eval Procedure: Operation Date: 12/31/24 10:15 Proposed Procedures p Cystoscopy, Insertion Suprapubic Tube - Austen Hartman MD Date/Time: 12/31/24 09:53 Surgeon: Austen Hartman MD Pre Op Diagnosis: incomplete bladder emptying Patient Data Age: 69 Gender: F Height: 1.7 m Weight: 58.7 kg Last Vital Signs Temp 37.1 C 12/31/24 09:10 Pulse 68 12/31/24 09:10 BP 166/77 H 12/31/24 09:10 Pulse Ox 97 12/31/24 09:10 O2 Del Method Room Air 12/31/24 09:10 Allergies Allergy/AdvReac Type Severity Reaction Status Date / Time No Known Allergies Allergy Verified 12/24/24 12:52 Home Medications ?Medication ?Instructions ?Recorded ?Confirmed ?Type amlodipine 10 mg tablet 10 mg PO DAILY 12/24/24 12/31/24 History aspirin 81 mg chewable tablet 1 tablet PO DAILY 12/24/24 12/24/24 History atorvastatin 20 mg tablet 80 mg PO QPM 12/24/24 12/24/24 History bupropion HCl 150 mg 24 hr tablet, 150 mg PO DAILY 12/24/24 12/31/24 History extended release calcitriol 0.25 mcg capsule 0.25 mcg PO 3XW 12/24/24 12/24/24 History cholecalciferol (vitamin D3) 50 2,000 unit PO DAILY 12/24/24 12/24/24 History mcg (2,000 unit) capsule doxazosin 8 mg tablet 8 mg PO HS 12/24/24 12/24/24 History dulaglutide 0.75 mg/0.5 mL 0.75 mg subcut WEEKLY 12/24/24 12/24/24 History subcutaneous pen injector (Trulicity) ferrous sulfate 325 mg (65 mg 325 mg PO DAILY 12/24/24 12/24/24 History iron) tablet furosemide 40 mg tablet 40 mg PO DAILY 12/24/24 12/24/24 History gabapentin 300 mg capsule 300 mg PO HS 12/24/24 12/24/24 History insulin lispro 100 unit/mL subcut 12/24/24 History subcutaneous pen metoclopramide HCl 5 mg tablet 10 mg PO BID 12/24/24 12/24/24 History metoprolol tartrate 50 mg tablet 50 mg PO Q12H 12/24/24 12/31/24 History multivitamin (Daily Value tablet) 1 tablet PO DAILY 12/24/24 12/24/24 History sertraline 100 mg tablet 100 mg PO HS 12/24/24 12/24/24 History spironolactone 25 mg tablet 50 mg PO Q12H 12/24/24 12/24/24 History Laboratory Tests 12/31/24 08:53 POC Capillary Glucose 134 H mg/dl (65-105) Patient hx anesthesia problems: none Family hx anesthesia problems: none Results Review: All pre-operative results and documents have been reviewed as part of the pre-operative evaluation. [facility] Social History Social History Smoking status: Never smoker Living arrangements: with family Spiritual care concerns: No Anes - Eval Final PreProcedure Day of Procedure 12/31/24 09:53 Patient weight: normal Heart: regular rate and rhythm Lungs: clear to auscultation Airway: Mallampati scale class II Neurological: alert and oriented Last oral intake: >/= 8 hours ASA classification: IV Emergent: no Anesthetic plan: proceed Anesthesia type and monitoring: general GIVS and standard monitoring Results Review: All pre-operative results and documents have been reviewed as part of the pre-operative evaluation. Informed Consent: The patient's anesthetic plan and its attendant risks and benefits were discussed with the patient/family/POA. Questions were solicited and answers provided to the satisfaction of the patient/family/POA.
[2024-12-31] MEDS: ceFAZolin 2 GM in SODIUM CHLORIDE 0.9% IV 50 ML 100 ML IVPB (10:04)
[2024-12-31] MEDS: LIDO 1%/EPINEPHRINE 1:100,000 20 ML VIAL INFILTRATE (10:24)
[2024-12-31 10:34] VITALS: BP 148/90; PULSE 78; RESP 20
--- NOTE | 2024-12-31 10:42 | W.PM.PROC2 ---
Procedure Note - Detailed Date of Procedure 12/31/24 Pre-op Diagnosis incomplete bladder emptying Neurogenic bladder secondary to stroke Post-op Diagnosis Same Procedure Performed Cystoscopy. Wise catheter placement Surgeon Austen Hartman MD Anesthesia MAC and Local Indications She has incomplete bladder emptying and neurogenic bladder secondary to a stroke. She is here today for suprapubic tube. A preoperative urine culture was not obtained by the lab because the patient was completely incontinent and they were unable to obtain. Findings Grossly purulent urine Description of Procedure She was correctly identified. Informed consent obtained. From the operating room. She was given monitored anesthesia care. She was placed in dorsal lithotomy position. She was prepped in sterile fashion. Time-out performed. I marked out the site of her suprapubic tube. I anesthetized the skin and subcutaneous tissues. I then performed cystoscopy. Upon entering her bladder there was 600 cc of grossly purulent urine. I irrigated out the bladder several times to try to clear out the bladder. I then was able to get a good view. She had moderate trabeculations. She had a normal bladder capacity. She had inflammation redness in the bladder consistent with infection. At this point I decided to abort the suprapubic tube. Her urine was sent for culture. A Wise catheter was placed in the urethra. We will reschedule suprapubic catheter. Discussed with her family member Estimated Blood Loss 0 Packing No Pathology None sent Complications No immediate complications Condition Stable Disposition PACU
[2024-12-31 11:00] VITALS: BP 168/77; PULSE 80; RESP 20
[2024-12-31 11:30] VITALS: BP 180/80; PULSE 80; RESP 20
== END 2024-12-31 11:40 | disposition home or self-care (01) ==
PROVIDERS: Visit Provider Urology
PROC: 0T9B30Z Drainage of Bladder with Drainage Device, Percutaneous Approach (ICD-10-PCS; CPT 51102; principal; 2024-12-31 10:15)
DX: N31.9 Neuromuscular dysfunction of bladder, unspecified (principal); R39.81 Functional urinary incontinence; R33.9 Retention of urine, unspecified; I69.398 Other sequelae of cerebral infarction; N32.89 Other specified disorders of bladder; Z53.09 Procedure and treatment not carried out because of other contraindication; Z79.4 Long term (current) use of insulin; Z79.84 Long term (current) use of oral hypoglycemic drugs
CPT/HCPCS: 51102; 82948; 87086; J0690; J2004; J2704; J3010; J7120

== ENCOUNTER 2025-01-17 00:19 | Day surgery (SDC) | payer MEDICARE, SELFPAY ==
--- NOTE | 2025-01-06 09:40 | PC.NURSE ---
[facility] has started construction of its new state of the art ER which will open Spring 2026. With this, we anticipate parking may be a challenge for some our surgical patients and families. Parking spaces are limited but are available for all Surgical, obstetrics, and ER patients sharing this lot. If you arrive and find you are having a hard time finding a parking space, please note that we understand the challenges, please drive around the hospital and park near Hospital Entrance 1. When you enter this entrance, you can ask a volunteer to direct or take you back to the surgical waiting area to check in. We appreciate everyone?s understanding of these expected challenges while we build for your future. Report to the Outpatient Waiting Room, entrance under the green pavilion located off [address], at time _10 :15 am on date _01/17/25 . Planned Procedure Time: __12:15 pm .? Time changes happen often and if your time is changed the preop area will call you the afternoon before. - You and your visitor will be asked to self-screen and do not enter if you have any COVID symptoms. Please call surgeon if you need to reschedule. - A mask is optional within the hospital at this time. Patients may have clear liquids (water, carbonated beverages, clear teas, apple juice) until 3 hours prior to surgery(9:15 am) with a maximum of 20 ounces. - No food from midnight until time of surgery and no smoking, or chewing tobacco (or any form of nicotine). No chewing gum, candy or mints. - Take only the following medications with a SIP of water on the morning of surgery: _AMLODIPINE,BUPROPION, METOPROLOL DO NOT STOP ANY OF YOUR OTHER PRESCRIPTION MEDICATIONS PRIOR TO SURGERY EXCEPT THE FOLLOWING Hold all vitamins and supplements for 3 days per anesthesiologist.LAST DOSE01/13/25 Medications to discontinue per physician ____ASPIRIN DAUGHTER STATES LAST DOSE 12/23/24 Date to take last dose Please no make-up, nail spanish, hairspray, perfume, deodorant, or body powder the day of surgery.? No jewelry (including any body piercings) or valuables the day of surgery, leave them at home.? Please take a shower or bath the night before, or the morning of, surgery with an antibacterial soap.? Wear comfortable, loose fitting clothing.? Children are encouraged to wear pajamas. - Jewelry must be removed prior to entering the operating room.? Rings and piercings that are not removed may be cut off. - The hospital will not accept responsibility for valuables.? - Please leave all valuables, including medications, at home the day of surgery. If you are going home after surgery, a licensed winch driver must drive you home.? - NO public transportation without another adult if you receive anesthesia. - We recommend that an adult stay with you for 24 hours following discharge. - We also recommend that you do not drive, make important decision, drink alcoholic beverages, or take any drugs that were not prescribed by your health care provider for at least 24 hours after your discharge time. For Pediatric surgeries, we recommend two adults accompany the child home. Follow any additional instructions given to you from your surgeon. Telephone instructions given to _DAUGHTER AGATA and asked if any additional questions and then verbalized understanding. Patient advised to call surgeon office or pre surgery nurse liaison [phone] if any additional questions.
[2025-01-06 09:43] VITALS: BMI 20.7
--- NOTE | 2025-01-14 08:45 | PM.IMHP ---
H&P: HPI History of Present Illness Date/Time: 01/14/25 08:45 Chief Complaint: surgery Narrative: functional incontinence and incomplete bladder emptying Review of Systems Review of Systems: All systems reviewed & are unremarkable except as noted in HPI and below PMFSH Social History Social History Smoking status: Never smoker Living arrangements: with family Spiritual care concerns: No Meds Home Medications and Allergies Home Medications ?Medication ?Instructions ?Recorded ?Confirmed ?Type amlodipine 10 mg tablet 10 mg PO DAILY 12/24/24 01/06/25 History aspirin 81 mg chewable tablet 1 tablet PO DAILY 12/24/24 01/06/25 History Held on 12/31/24. Instructions: Resume on 01/02/25. atorvastatin 20 mg tablet 80 mg PO QPM 12/24/24 01/06/25 History bupropion HCl 150 mg 24 hr tablet, 150 mg PO DAILY 12/24/24 01/06/25 History extended release calcitriol 0.25 mcg capsule 0.25 mcg PO 3XW 12/24/24 01/06/25 History cholecalciferol (vitamin D3) 50 2,000 unit PO DAILY 12/24/24 01/06/25 History mcg (2,000 unit) capsule doxazosin 8 mg tablet 8 mg PO HS 12/24/24 01/06/25 History dulaglutide 0.75 mg/0.5 mL 0.75 mg subcut WEEKLY 12/24/24 01/06/25 History subcutaneous pen injector (Trulicity) ferrous sulfate 325 mg (65 mg 325 mg PO DAILY 12/24/24 01/06/25 History iron) tablet furosemide 40 mg tablet 40 mg PO DAILY 12/24/24 01/06/25 History gabapentin 300 mg capsule 300 mg PO HS 12/24/24 01/06/25 History insulin lispro 100 unit/mL 1 sliding scale dose subcut 12/24/24 History subcutaneous pen metoclopramide HCl 5 mg tablet 10 mg PO BID 12/24/24 01/06/25 History metoprolol tartrate 50 mg tablet 50 mg PO Q12H 12/24/24 01/06/25 History multivitamin (Daily Value tablet) 1 tablet PO DAILY 12/24/24 01/06/25 History sertraline 100 mg tablet 100 mg PO HS 12/24/24 01/06/25 History spironolactone 25 mg tablet 50 mg PO Q12H 12/24/24 01/06/25 History ciprofloxacin HCl 500 mg tablet 250 mg (1/2 x 500 mg) PO Q12H #10 12/31/24 01/06/25 Rx tabs tramadol 50 mg tablet 50 mg PO Q6H PRN pain #10 tabs 12/31/24 01/06/25 Rx Allergies Allergy/AdvReac Type Severity Reaction Status Date / Time No Known Allergies Allergy Verified 01/06/25 09:37 Exam Narrative: WC bound Assessment and Plan Assessment and plan (1) Functional incontinence: Code(s): R39.81 - Functional urinary incontinence Status: Acute (2) Incomplete bladder emptying: Code(s): R33.9 - Retention of urine, unspecified Status: Acute Plan cystoscopy/SP tube
[2025-01-17] VITALS (8 sets, daily range): BP systolic 136–170; BP diastolic 58–75; PULSE 79–92; RESP 16–22; TEMP 36.8–37; O2SAT 96–100; BMI 17.4
--- OUTSIDE RECORDS SUMMARY | 2025-01-17 00:22 | XMS_ITS | Clinical Summary ---
Author Organization [facility] Address [address] [place] [address] Phone Care Team Providers Care Lpn Rn Name Role Phone Desean Fry MD Primary Care Provider [phone] Allergies Active Allergy Reactions Criticality Noted Date [...] Active NEEDLE, DISP, 30 G (BD Disp [place]) 30G X 1/2 Misc 1 Each by [...] AM CDT Pulse 85 05/17/2022 9:38 AM ADULT SERVICES LIBRARIAN Temperature 36.2 C (97.2 F) 07/11/2020 9:16 AM CDT Respiratory Rate 18 07/11/2020 9:16 AM CDT Oxygen Saturation 97% 05/17/2022 9:38 AM ADULT SERVICES LIBRARIAN Inhaled Oxygen Concentration - - Weight 71.5 kg (157 lb 11.2 oz) 05/17/2022 9:38 AM ADULT SERVICES LIBRARIAN Height 162.6 cm (5' 4) 05/17/2022 9:38 AM ADULT SERVICES LIBRARIAN Body Mass Index 27.07 05/17/2022 9:38 AM ADULT SERVICES LIBRARIAN Plan of Treatment Health Maintenance Due Date [...] this topic Medical Devices Implanted Type Area Crabbing Machine Operator Device Identifier Shelf Expiration Date Model / Serial / Lot Iol Lens Intraocular [id number] - [id number] Implanted:Qty: 1 on 06/27/2020 by Jose F Smith MD at [facility] IMPLANT Right: Eye [employer] 11/20/2024 [id number] / [id number] / N/A Iol Lens Intraocular Sa60wf - [id number] Implanted:Qty: 1 on 07/11/2020 by Jose F Smith MD at [facility] IMPLANT Left: Eye [employer] 09/05/2024 [id number] / [id number] / UNKNOWN Procedures Procedure Name Priority Date/Time Associated Diagnosis Comments ISIDRO SCREENING BILATERAL DIGITAL W CAD Routine 03/16/2020 1:33 PM ADULT SERVICES LIBRARIAN Visit for screening mammogram CMP (COMPREHENSIVE METABOLIC PANEL) Routine 01/05/2018 9:39 AM CDT Type 2 diabetes mellitus with complication, unspecified whether fdc insulin use (HCC) Hypertension, essential HEMOGLOBIN A1C W/ ESTIMATED GLUCOSE Routine 01/05/2018 9:39 AM CDT Type 2 diabetes mellitus with complication, unspecified whether fdc insulin use (HCC) Hypertension, essential from Last 3 Months or Most Recently Relevant to Health Maintenance Results * ISIDRO SCREENING BILATERAL DIGITAL W CAD (03/16/2020 1:33 PM ADULT SERVICES LIBRARIAN) Anatomical Region Laterality Modality breast Bilateral Mammography 03/16/2020 1:42 PM ADULT SERVICES LIBRARIAN Impressions 03/16/2020 1:42 PM ADULT SERVICES LIBRARIAN ASSESSMENT: BI-RADS 0; NEED ADDITIONAL IMAGING EVALUATION RECOMMENDATIONS: Special views: mag and ultrasound of the left breast. CAD used DICTATION LOCATION: [facility] Signed By: Justin Santana M.D. Narrative 03/16/2020 1:42 PM ADULT SERVICES LIBRARIAN PATIENT HISTORY: No known family history of cancer. Benign right stereotactic core biopsy, November 05, 2010. Benign excisional biopsy of the left breast, September 23, 2003. Last mammogram was performed 1 year and 2 months ago. REASON FOR EXAM: screening, asymptomatic. FINDINGS: [facility] SCREENING BILATERAL DIGITAL W CAD Bilateral CC and MLO view(s) were taken. Technologist: Luiza Retana, RT(R)(M) Prior study comparison: December 30, 2018, [facility] SCREENING BILATERAL DIGITAL W CAD performed at [facility]. The breast tissue is scattered fibroglandular densities. Finding: Mass Laterality: left , Size: 3mm x 4mm at 1 o'clock Quadrant: upper outer, Depth: middle The mass is oval. The density is high density. Desean Fry MD IMG MAMMO ORDERABLES Final R esult * (ABNORMAL) HEMOGLOBIN A1C W/ ESTIMATED GLUCOSE (01/05/2018 9:39 AM CDT) HGB-A1C 11.1(H) 4.0 - 6.0 % 01/05/2018 10:37 AM CDT [facility] Blood specimen (specimen) Venipuncture / Unknown 01/05/2018 9:39 AM CDT 01/05/2018 9:40 AM CDT Narrative [facility] - 01/05/2018 10:37 AM CDT Per ADA recommendations, HbA1c <7% is the goal for glycemic control, >8% suggests additional action needed. ([employer] [place] HbA1c method) This assay measures any hemoglobin [...] Carey MD CHEMISTRY ORDERABLES Final Resu lt [facility] [address] [place] [address] * (ABNORMAL) CMP (COMPREHENSIVE METABOLIC PANEL) (01/05/2018 9:39 AM CDT) SODIUM 141 133 - 145 mmol/L 01/05/2018 10:36 AM [facility] POTASSIUM 3.8 3.5 - 5.1 mmol/L 01/05/2018 10:36 AM [facility] CHLORIDE 105 96 - 108 mmol/L 01/05/2018 10:36 AM [facility] CO2, VENOUS 26 21 - 32 mmol/L 01/05/2018 10:36 AM [facility] ANION GAP 13.8 10.0 - 20.0 mmol/L 01/05/2018 10:36 AM [facility] GLUCOSE 195(H) 80 - 115 mg/dL 01/05/2018 10:36 AM [facility] BUN 14 6 - 19 mg/dL 01/05/2018 10:36 AM [facility] CREATININE, BLOOD 0.70 0.40 - 1.10 mg/dL 01/05/2018 10:36 AM [facility] BUN/CREATININE RATIO 20 12 - 20 ratio 01/05/2018 10:36 AM [facility] TOTAL PROTEIN 8.3(H) 6.0 - 8.2 g/dL 01/05/2018 10:36 AM [facility] ALBUMIN 3.9 3.4 - 4.8 g/dL 01/05/2018 10:36 AM [facility] CALCIUM 9.3 8.8 - 10.0 mg/dL 01/05/2018 10:36 AM [facility] T BILI 0.3 0.0 - 1.0 mg/dL 01/05/2018 10:36 AM [facility] SGOT (AST) 10 0 - 37 U/L 01/05/2018 10:36 AM [facility] SGPT (ALT) 21 12 - 45 U/L 01/05/2018 10:36 AM [facility] ALKALINE PHOSPHATASE 79 39 - 117 U/L 01/05/2018 10:36 AM [facility] GFR, EST. NONAFRICAN >60 01/05/2018 10:36 AM [facility] Comment: Reference interval for MDRD GFR: GFR >=60: Satisfactory kidney function GFR <60: Chronic kidney disease GFR <15: Kidney failure Estimated GFR may be less reliable in patients >70yr, women, patients with serious comorbid conditions, or patients with extremes of body size, muscle mass, or nutritional status. Revised 06/24/07 (National Kidney Disease Education Program) GFR, EST. >60 >=60 018 10:36 AM T [facility] Comment: Reference interval for MDRD GFR: [...] 9:39 AM CDT 01/05/2018 9:40 AM CDT [facility] - 01/05/2018 10:36 AM CDT Venipuncture should occur prior to sulfasalazine and/or sulfapyridine administration due to the potential for falsely depressed results for ALT and AST. Glucose can be falsely depressed after administration of sulfasalazine, and falsely elevated with administration of sulfapyridine. us Yash Carey MD CHEMISTRY ORDERABLES Final Resu lt [facility] [address] [place] [address] from Last 3 Months or Most Recently Relevant to Health Maintenance Insurance MEDICARE C [employer] Care Teams Lpn Rn Relationship Specialty Start Date End Date Desean Fry MD [address] [place] [address] PCP - General Internal Medicine 03/16/20
--- OUTSIDE RECORDS SUMMARY | 2025-01-17 00:22 | XMS_ITS | Clinical Summary ---
Author Organization [facility] Address [facility] [place] [address] Care Team Providers Care Bacteriologist Medical Name Role Phone Yolanda Damon MELTER CLERK Primary Care Prov ider Allergies Active Allergy Reactions Criticality Noted Date Comments Latex Rash,Itching Medium 06/21/2020 Can't tolerate wearing latex gloves Statins Itching Low 11/12/2011 Medications NEEDLE, DISP, 30 G (BD DISP NEEDLES) 30G X 1/2 MiscIndication s:Poorly controlled diabetes mellitus ([facility]) 1 each by Does not apply route 2 (two) times a day. 200 each 1 09/08/19 21 Active Insulin Pen Needle (B-D UF III MINI PEN NEEDLES) 31G X 5 MM MiscIndication s:Poorly controlled diabetes mellitus ([facility] HHS/HCC) 1 each by Does not apply route 2 (two) times a day. 200 each 1 09/16/19 21 Active Lancets MiscIndication s:Poorly controlled diabetes mellitus ([facility]) Use to check blood sugar daily. 100 each 2 10/13/19 21 Active Glucose Blood (GLUCOSE METER TEST) test stripIndicatio ns:Poorly controlled diabetes mellitus ([facility]) Use with blood sugar monitor daily. 100 strip 5 10/13/19 21 Active Blood Glucose Monitoring Suppl DeviceIndicati ons:Poorly controlled diabetes mellitus ([facility]) Check blood sugar every morning before breakfast. 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 Uncontrolled hypertension 02/22/2014 Poorly controlled diabetes mellitus 02/08/2014 Anxiety disorder 05/24/2013 Encounters Date Type Department Care Team Description 11/18/2024 9:00 AM CDT Home Care Visit [place] [address] [place] [address] Елена Roque RN SN OASIS DISCHARGE/ASSESSMENT 11/18/2024 Home Care Visit [address] [facility] [place] [address] Елена Roque RN [facility] 11/16/2024 9:00 AM CDT Home Care Visit [place] [address] [facility] [place] [address] David Daniel, PT PT NON-VISIT DISCIPLINE DISCHARGE 11/10/2024 10:30 AM CDT Home Care Visit [place] [address] [place] [address] Priya Bean RN SN HOME PRN VISIT 11/09/2024 12:30 PM CDT Home Care Visit [place] [address] [place] [address] [address] David Daniel, PT PT HOME VISIT 11/03/2024 11:45 AM CDT Home Care Visit [facility] Home Care [place] [address] [address] Junior Wolfe, STRUCTURAL DRAFTSMAN STRUCTURAL DRAFTSMAN HOME VISIT 11/01/2024 12:45 PM CDT Home Care Visit [facility] Home Care [place] [address] [place] [address] [place] [address] Junior Wolfe, STRUCTURAL DRAFTSMAN STRUCTURAL DRAFTSMAN HOME VISIT 11/01/2024 8:45 AM CDT Home Care Visit [facility] Home [place] [address] [place] [address] Philip Rojas, OT OT DISCIPLINE DISCHARGE 10/29/2024 11:45 AM CDT Home Care Visit [address] [place] [address] [place] [address] Junior Wolfe, STRUCTURAL DRAFTSMAN STRUCTURAL DRAFTSMAN HOME VISIT 10/28/2024 10:00 AM CDT Home Care Visit [place] [address] [place] [address] Елена Roque, RN SN DISCIPLINE DISCHARGE 10/28/2024 Home Care Visit [address] [place] [address] [place] [address] Елена Roque, RN [facility] 10/27/2024 1:30 PM CDT Home Care Visit [facility] Home Care [place] [address] [place] [address] Socorro Allen CNA CASE COMMUNICATION 10/27/2024 Home Care Visit [facility] Home [place] [address] [place] [address] Елена Roque, RN CASE COMMUNICATION 10/26/2024 9:15 AM CDT Home Care Visit [facility] Home [place] [address] [place] [address] Junior Wolfe, STRUCTURAL DRAFTSMAN STRUCTURAL DRAFTSMAN HOME VISIT 10/22/2024 1:30 PM CDT Home Care Visit [place] [address] [address] [phone] Socorro Allen CNA CASE COMMUNICATION 10/22/2024 8:45 AM CDT Home Care Visit [place] [address] [address] [address] Philip Rojas, OT OT INITIAL EVALUATION 10/22/2024 8:00 AM CDT Home Care Visit [place] [address] [place] [address] [address] Junior Wolfe, STRUCTURAL DRAFTSMAN STRUCTURAL DRAFTSMAN HOME VISIT 10/20/2024 Home Care Visit [address] [place] [address] Елена Roque, RN CASE COMMUNICATION 10/20/2024 Home Care Visit [address] [place] [address] [phone] Елена Roque, RN SN TELEPHONE CALL 10/19/2024 11:30 AM CDT Home Care Visit [address] [place] [address] Lisseth Goodrich, PT PT INITIAL EVALUATION 10/19/2024 9:00 AM CDT Home Care Visit [facility] Home [place] [address] [place] [address] [place] [address] Janelle Mchugh LPN SN HOME VISIT from Last 3 Months Family History Medical [...] 69.9 kg (154 lb) 02/03/2023 10:00 AM PREDATORY ANIMAL EXTERMINATOR Height 163.8 cm (5' 4.5) 02/03/2023 10:00 AM CS T Body Mass Index 26.03 02/03/2023 10:00 AM PREDATORY ANIMAL EXTERMINATOR Plan of Treatment Health Maintenance Due Date [...] 2 - PCV) 02/11/2023 02/11/2022 COVID-19 Vaccine ( season) 2024 Influenza Adult (#1) 2024 11/30/2023, 12/29/2022, 01/10/2021 Hemoglobin A1C 04/22/2025 10/20/2024, 04/2 08/2024, 03/19/2024, Additional history exists Mammogram Screening 12/14/2025 12/15/2023, 03/28/2020, 03/16/2020, Additional history exists RSV Immunization or 60+ Years (1 - 1-dose 75+ series) 2031 Dexa Scan (General) Completed 11/05/2023, Hepatitis A Vaccines Aged Out No long er eligible based on patient's age to complete this topic Meningococcal B Vaccine Aged Out No l [...] (11/28/2020) us Documents Scanned SCANNING Final Result [facility] ONBASE * (ABNORMAL) LIPID PANEL (08/01/2020 3:35 AM CDT) CHOLESTEROL 238 MG/DL 08/01/2020 5:39 AM CDT [facility] Comment:BORDERLINE HIGH: 200 -239 TRIGLYCERIDES 147 MG/DL 08/01/2020 5:39 AM T [facility] Comment:<150 NORMAL HDL 47(L) >49 MG/DL 08/01/2020 5:39 AM T [facility] LDL-C 162 MG/DL 08/01/2020 5:39 AM T [facility] Comment:160-189 HIGH VLDL CALCULATION 29 MG/DL 08/02/19 5:39 AM T [facility] Comment:REFERENCE RANGE NOT ESTABLISHED CHOL/HDL RATIO 5.1 08/01/2020 5:39 AM T [facility] Comment:REFERENCE RANGE NOT ESTABLISHED LDL/HDL 3.0 08/01/2020 5:39 AM T [facility] Comment:REFERENCE RANGE NOT ESTABLISHED NON HDL CHOLESTEROL 191 MG/DL 08/01/2020 5:39 AM T [facility] Comment:REFERENCE RANGE NOT ESTABLISHED 08/01/2020 3:35 AM CDT Lisa Brooks MD LABORATORY Final Resu lt [facility] [address] [id number], from Last 3 Months or Most Recently Relevant to Health Maintenance Insurance * Guarantor: Sally [employer] Account Type Relation to Patient Date of Phone Billing Address Personal/Family Self 1955 [address] [facility] MEDICARE Advance Directives * Full Code (Latest Code Status on File) Date Activated Date Inactivated Comments 10/17/2024 11:46 AM * Full Code Date Activated Date Inactivated Comments 07/31/2020 8:02 PM 08/01/2020 8:00 PM Care Teams Bacteriologist Medical Relationship Specialty Start Date End Date Yolanda Damon APRN [address] [address] PCP - General Nurse Practitioner Family 09/22/24
--- OUTSIDE RECORDS SUMMARY | 2025-01-17 00:22 | XMS_ITS | Clinical Summary ---
Author Organization [facility] Address [address] [place] [address] Care Team Providers Care Usability Specialist Name Role Phone Yolanda Damonalvina ROGERS Primary Care Provi festus Maritza Do OUTDOOR EMERGENCY CARE TECHNICIAN Unavailable [phone] Michelle CaoW Unavailable Allergies No known active allergies Medications OneTouch Verio test strips strip Active OneTouch Verio Flex meter misc Active OneTouch Delica Plus Lancet 33 gauge misc 024 Active blood-glucose meter,continuous (Dexcom G7 Information Security Manager) misc 1 each continuously 1 each 024 Active aspirin 81 mg chewable tablet Take 1 tablet (81 mg total) by mouth daily 90 tablet 2 Active glucagon 1 mg/0.2 mL auto-injector Inject 1 each under the skin daily as needed (low blood sugar) 0.6 mL 1 024 Active multivitamin with minerals tablet Take 1 tablet by mouth daily Active ferrous sulfate 325 mg (65 mg of elemental iron) tabletIndications :Iron Deficiency Anemia Take 1 tablet (325 mg total) by mouth daily with breakfast 90 tablet 3 024 2024 Active buPROPion XL (WELLBUTRIN XL) 150 mg 24 hr tablet Take 1 tablet (150 mg total) by mouth daily 90 tablet 1 Active calcitRIOL (ROCALTROL) 0.25 mcg capsuleIndication s:Hyperparathyroi dism Secondary to Chronic Renal Failure Take 1 [...] total) by mouth daily 90 tablet 1 Active atorvastatin (LIPITOR) 80 mg tabletIndications :Type 2 diabetes mellitus with hyperlipidemia (HCC) Take 1 tablet (80 mg total) by mouth daily 90 tablet 4 025 2025 Active spironolactone (ALDACTONE) 25 mg tabletIndications :Chronic diastolic congestive heart failure (HCC) Take 2 tablets (50 mg total) by mouth 2 (two) times a day 360 tablet 1 Active acetaminophen (TYLENOL) 325 mg tabletIndications :Fever,Pain Take 2 tablets (650 mg total) by mouth every 4 (four) hours as needed for pain, headaches or fever Active amLODIPine (NORVASC) 10 mg tablet Take 1 tablet (10 mg total) by mouth daily 90 tablet 1 Active blood-glucose sensor (Dexcom G7 Sensor) device APPLY ONE SENSOR TO SKIN EVERY 10 DAYS FOR BLOOD SUGAR MONITORING 5 each 3 Active sod sulf-pot chloride-mag sulf (Sutab) 1.479-0.188- 0.225 gram tabletIndications :Screening for colon cancer Take as directed by GI office for colonoscopy prep. Stay well hydrated. 24 tablet Active Additional Information Patient not taking.Reported on 12/08/2024 dulaglutide (TRULICITY) 0.75 mg/0.5 mL pen injectorIndicatio ns:cardiovascular disease associated with T2DM,type 2 diabetes mellitus Inject 0.5 mL (0.75 mg total) under the skin every 7 days 6 mL 1 Active insulin lispro (HumaLOG, ADMELOG) 100 unit/mL pen for injectionIndicati ons:type 2 diabetes mellitus Sliding scale for elevated [...] 3 025 2025 Active miscellaneous medical supply miscIndications:H istory of fall,Urinary incontinence, unspecified type,Current severe episode of major depressive disorder without psychotic features without prior episode (HCC),Cognitive impairment,Decrea sed social interaction,Histo ry of CVA (cerebrovascular accident),General ized weakness,Dependen t for wheelchair mobility,Frailty, Moderate protein-calorie malnutrition Sit to stand lift 1 each Active metoprolol tartrate (LOPRESSOR) 50 mg immediate release tablet TAKE 1 TABLET BY MOUTH TWICE A DAY 60 tablet 1 Active gabapentin (NEURONTIN) 300 mg capsuleIndication s: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) TAKE 1 CAPSULE BY MOUTH EVERY DAY AT NIGHT 30 capsule 1 Active furosemide (LASIX) 40 mg tablet TAKE 1 TABLET (40 MG TOTAL) BY MOUTH DAILY NEEDED (LOWER EXTREMITY SWELLING) 90 tablet 3 025 2025 Active furosemide (LASIX) 40 mg tablet TAKE 1 TABLET (40 MG TOTAL) BY MOUTH DAILY NEEDED (LOWER EXTREMITY SWELLING) 90 tablet 1 025 2024 Discontinued gabapentin (NEURONTIN) 300 mg capsuleIndication s:Neuropathic Pain Take 1 capsule (300 mg total) by mouth nightly 30 capsule 2 025 2024 Discontinued metoprolol tartrate (LOPRESSOR) 50 mg immediate release tablet TAKE 1 TABLET BY MOUTH TWICE A DAY 60 tablet 1 025 2024 Discontinued Active Problems Problem [...] 12:19 PM CDT): Refer to gastroenterology Try [id number] normal saline enema and magnesium citrate Continue [...] 05/10/2024 Assessment & Plan (05/10/2024 7:00 PM PROMOTIONS FIRM ACCOUNTS MANAGER): Concerning for possible new infection with left [...] 05/06/2024 Assessment & Plan (05/06/2024 7:41 PM PROMOTIONS FIRM ACCOUNTS MANAGER): Patient being followed by registered dietitian, patient [...] daily. Assessment & Plan (05/09/2024 5:04 PM PROMOTIONS FIRM ACCOUNTS MANAGER): Patient remains withdrawn and depressed, we will increase sertraline to 100 mg daily. Continue supportive care, speech therapy. Assessment & Plan (03/15/2024 8:51 AM PROMOTIONS FIRM ACCOUNTS MANAGER): Start sertraline 25 mg nightly Medication and [...] therapy Assessment & Plan (04/23/2024 8:28 AM PROMOTIONS FIRM ACCOUNTS MANAGER): I endorse admission to custodial care. The patient is at risk of [...] care. Assessment & Plan (02/16/2024 10:16 AM PROMOTIONS FIRM ACCOUNTS MANAGER): Refer to PT/OT History of CVA (cerebrovascular [...] ordered Assessment & Plan (02/16/2024 10:16 AM PROMOTIONS FIRM ACCOUNTS MANAGER): Appointment with Neurology on 03/09 History of [...] therapy Assessment & Plan (05/03/2024 2:03 PM PROMOTIONS FIRM ACCOUNTS MANAGER): Pt with documented fall over the weekend. Pt denies pain or complaints. Monitor Assessment & Plan (02/12/2024 1:12 PM PROMOTIONS FIRM ACCOUNTS MANAGER): Fall today trying to get to bathroom byself. No injury. Fall prec/monitoring in place. Anemia 02/02/2024 Assessment & Plan (12/09/2024 5:26 PM CDT): Continue iron supplements Assessment & Plan (10/03/2024 6:53 PM CDT): Continue iron supplements Labs ordered Assessment & Plan (05/03/2024 2:05 PM PROMOTIONS FIRM ACCOUNTS MANAGER): Overall stable, H/H 9.2/28.9 Assessment & Plan (04/29/2024 1:48 PM PROMOTIONS FIRM ACCOUNTS MANAGER): Hemoglobin with slight decline from admission but overall stable, H&H 10.9/34.0 Assessment & Plan (04/23/2024 5:04 PM PROMOTIONS FIRM ACCOUNTS MANAGER): Hemoglobin lower but stable. H&H 10.7/34.1. We will continue to monitor, patient may need an outpatient GI follow-up. Assessment & Plan (02/02/2024 4:42 PM PROMOTIONS FIRM ACCOUNTS MANAGER): This is in part secondary to her [...] Neurology Assessment & Plan (05/06/2024 7:42 PM PROMOTIONS FIRM ACCOUNTS MANAGER): MOCA 09/22 Assessment & Plan (02/02/2024 4:43 PM PROMOTIONS FIRM ACCOUNTS MANAGER): Per speech therapy today's [place] score was 9 / 30. Daughter notes [...] nightly. Assessment & Plan (05/09/2024 5:03 PM PROMOTIONS FIRM ACCOUNTS MANAGER): Remains compensated, continue to hold spironolactone. Renal function and electrolytes have improved with IV fluids. Continue to monitor Assessment & Plan (04/23/2024 5:05 PM PROMOTIONS FIRM ACCOUNTS MANAGER): Currently compensated. We will place Aldactone on hold due to renal dysfunction. Continue Lasix p.r.n., continue to monitor electrolytes, renal function, weight Assessment & Plan (04/23/2024 8:27 AM PROMOTIONS FIRM ACCOUNTS MANAGER): This is currently stable. We will monitor vital signs. We will continue 40 mg furosemide daily p.r.n., metoprolol, and Aldactone. Assessment & Plan (02/16/2024 10:13 AM PROMOTIONS FIRM ACCOUNTS MANAGER): Chronic and stable Appointment with Cardiology on 02/24 Continue Coreg 25 mg twice daily Continue Jardiance 25 mg daily Continue furosemide 80 mg daily Continue spironolactone 25 mg daily Assessment & Plan (02/12/2024 1:11 PM PROMOTIONS FIRM ACCOUNTS MANAGER): Cardiology appt r/s with COVID +. She is compensated. Continue Jardiance, Coreg, Statin, ASA, Norvasc, Spirolactone. Lasix held with elevated GABRIELA. Remains compensated without. Repeat labs 02/15. Assessment & Plan (02/03/2024 12:35 PM PROMOTIONS FIRM ACCOUNTS MANAGER): Compensated. Continue Lasix, Spirolactone, Atorvastatin, Coreg. Assessment & Plan (02/02/2024 4:39 PM PROMOTIONS FIRM ACCOUNTS MANAGER): This is subacute but now stable. Continue [...] Urology Assessment & Plan (04/26/2024 4:35 PM PROMOTIONS FIRM ACCOUNTS MANAGER): Luna in place, needed to be replaced [...] This is scheduled on 05/13/[address] [facility], would recommend keeping this appointment. We will continue Flomax Assessment & Plan (04/23/2024 8:28 AM PROMOTIONS FIRM ACCOUNTS MANAGER): She has an order to keep her Luna pending consult. This will be continued Assessment & Plan (02/16/2024 10:14 AM PROMOTIONS FIRM ACCOUNTS MANAGER): Appointment with Urology on 03/04 Continue Flomax 0.4 mg daily Assessment & Plan (02/13/2024 1:00 PM PROMOTIONS FIRM ACCOUNTS MANAGER): Voiding on own with mild retention not requiring ISC. Continue Flomax. Assessment & Plan (02/12/2024 1:05 PM PROMOTIONS FIRM ACCOUNTS MANAGER): Is voiding on her own. Continue Flomax. Assessment & Plan (02/09/2024 12:54 PM PROMOTIONS FIRM ACCOUNTS MANAGER): Patient removed luna herself this am. Denies pain. Bulb intact. Will start voiding trial & monitor. Assessment & Plan (02/05/2024 12:47 PM PROMOTIONS FIRM ACCOUNTS MANAGER): Failed voiding trial, increased Flomax to 0.8mg daily. Consider repeat voiding trial next week. Assessment & Plan (02/04/2024 2:59 PM PROMOTIONS FIRM ACCOUNTS MANAGER): RN reports urinary incontinence, bladder scan greater than 400 mL retention. Luna catheter anchored. Continue scripted tamsulosin Assessment & Plan (02/03/2024 12:29 PM PROMOTIONS FIRM ACCOUNTS MANAGER): Luna in place with Flomax. Pending labs [...] UTI Assessment & Plan (05/11/2024 10:45 AM PROMOTIONS FIRM ACCOUNTS MANAGER): A1c 11.3, blood sugars ranging from 123 to 244. Patient has had minimal use of sliding scale insulin. Continue Jardiance 25 mg daily, Lantus will remain on hold Assessment & Plan (04/26/2024 4:28 PM PROMOTIONS FIRM ACCOUNTS MANAGER): A1c 11.3, Accu-Cheks ranging from 117-282. A.m. blood sugars controlled., but elevate during the day. Previously patient taking Jardiance 25 mg daily, had also been on routine Lantus. Glargine has been on hold since 04/24/2024 for hypoglycemia. We will restart Jardiance, monitor blood sugars, continue sliding scale insulin with meals for now. Assessment & Plan (04/23/2024 8:27 AM PROMOTIONS FIRM ACCOUNTS MANAGER): Follow up labs will be ordered. We will continue insulin glargine and sliding scale insulin lispro in the short term. Assessment & Plan (04/23/2024 8:22 AM PROMOTIONS FIRM ACCOUNTS MANAGER): We will continue scripting her insulin glargine and sliding scale insulin. The nurses will monitor point of care glucose Assessment & Plan (02/16/2024 10:09 AM PROMOTIONS FIRM ACCOUNTS MANAGER): Lantus was discontinued during hospitalization Continue Jardiance 25 mg daily Continue insulin lispro 3 times daily with meals Appointment with endocrinology on 03/11 Labs ordered Assessment & Plan (02/13/2024 1:00 PM PROMOTIONS FIRM ACCOUNTS MANAGER): A1c 6.9. Patient taking Lantus 10u nightly, continue & dc SSI at discharge. Continue Jardiance. FU with PCP. Assessment & Plan (02/12/2024 1:08 PM PROMOTIONS FIRM ACCOUNTS MANAGER): BS stable, 199-211. Continue Lantus with SSI. Assessment & Plan (02/09/2024 1:02 PM PROMOTIONS FIRM ACCOUNTS MANAGER): Orginally hypoglycemic on admission. Insulin adjusted. She denies she was taking inuslin at home but does not appear new med. BS now elevated. 160-360. Currently only on SSI. On Lantus 10u qhs. Restart Jardiance 25mg daily for CHF not glycemic control & Lantus, monitor. Assessment & Plan (02/03/2024 12:31 PM PROMOTIONS FIRM ACCOUNTS MANAGER): A1c 6.9. BS 155-239. Continue on SSI. Pending labs may restart Jardiance. Assessment & Plan (02/02/2024 4:39 PM PROMOTIONS FIRM ACCOUNTS MANAGER): This is currently stable. Follow up labs [...] 06/03/2024 Assessment & Plan (02/16/2024 10:14 AM PROMOTIONS FIRM ACCOUNTS MANAGER): Appointment with urology 03/04 Pelvic floor physical therapy completed Assessment & Plan (11/18/2023 2:58 PM CDT): Managed by Urology Assessment & Plan (10/16/2023 2:37 PM CDT): Refer to urology Please send a [employer] message with the medication and dosage the [...] nightly. Assessment & Plan (05/11/2024 10:44 AM PROMOTIONS FIRM ACCOUNTS MANAGER): Urgency - will give additional dose of lopressor 25mg x 1, increased routine dose to 50mg BID. Continue norvasc.Recheck vitals, may need to consider additional agent if remains uncontrolled. Assessment & Plan (05/10/2024 7:04 PM PROMOTIONS FIRM ACCOUNTS MANAGER): Verbal report from nurse indicates that blood pressure had improved from this a.m. after a.m. medication dosing. No emesis yet this a.m.. Continue amlodipine 10 mg daily, Lasix 40 mg daily, metoprolol 25 mg b.i.d. Assessment & Plan (05/09/2024 5:02 PM PROMOTIONS FIRM ACCOUNTS MANAGER): BP stable, continue metoprolol 25 mg b.i.d., amlodipine 10 mg daily, Lasix 40 mg daily p.r.n.. Spironolactone remain on hold. Assessment & Plan (04/26/2024 4:25 PM PROMOTIONS FIRM ACCOUNTS MANAGER): Blood pressure is generally well controlled, continue amlodipine 10 mg daily, Lasix 40 mg daily p.r.n., metoprolol 25 mg b.i.d.. Spironolactone on hold Assessment & Plan (04/23/2024 8:26 AM PROMOTIONS FIRM ACCOUNTS MANAGER): This is chronic and stable. Continue to monitor serial vital signs continue scripting of amlodipine, metoprolol, Aldactone Assessment & Plan (02/16/2024 10:13 AM PROMOTIONS FIRM ACCOUNTS MANAGER): Chronic and stable Appointment with Cardiology on 02/24 Continue Coreg 25 mg twice daily Continue Jardiance 25 mg daily Continue furosemide 80 mg daily Continue spironolactone 25 mg daily Assessment & Plan (02/02/2024 4:38 PM PROMOTIONS FIRM ACCOUNTS MANAGER): This is chronic and stable. Continue amlodipine [...] CDT): Assessment & Plan (05/11/2024 10:46 AM PROMOTIONS FIRM ACCOUNTS MANAGER): Relatively unchanged, BUN/creatinine 22/1.53, GFR 37 Assessment & Plan (05/03/2024 2:04 PM PROMOTIONS FIRM ACCOUNTS MANAGER): Renal function about at baseline, Bun/Cr 20/1.59, GFR 35. Continue to monitor Assessment & Plan (04/29/2024 1:48 PM PROMOTIONS FIRM ACCOUNTS MANAGER): Overall stable, BUN/creatinine 35/1.64 with a GFR of 34 Assessment & Plan (04/26/2024 4:29 PM PROMOTIONS FIRM ACCOUNTS MANAGER): Labs were not performed as ordered, we will follow-up in a.m. Assessment & Plan (04/23/2024 5:02 PM PROMOTIONS FIRM ACCOUNTS MANAGER): Renal function overall stable, BUN/creatinine 26/1.47 with a GFR of 39. Continue to monitor Assessment & Plan (04/23/2024 8:28 AM PROMOTIONS FIRM ACCOUNTS MANAGER): Follow up labs to be ordered Assessment & Plan (02/13/2024 1:01 PM PROMOTIONS FIRM ACCOUNTS MANAGER): Stable. Lasix dc with elevated Cr. CHF, CKD, Edema stable without. Continue routine monitoring with PCP. Assessment & Plan (02/09/2024 12:55 PM PROMOTIONS FIRM ACCOUNTS MANAGER): Cr improved. She has no signs of overload. Continue to hold Lasix. Repeat labs. Monitor. Assessment & Plan (02/05/2024 12:49 PM PROMOTIONS FIRM ACCOUNTS MANAGER): Cr mildly elevated. Will hold Lasix. Continue all other meds & monitor. Repeat labs 02/08. Assessment & Plan (02/03/2024 12:27 PM PROMOTIONS FIRM ACCOUNTS MANAGER): Labs pending 02/04. Assessment & Plan (01/02/2024 [...] 12:19 PM CDT): Refer to gastroenterology Try urvf-hii-ehtkzfl normal saline enema and magnesium citrate Continue [...] 12/09/2024 Assessment & Plan (05/03/2024 2:10 PM PROMOTIONS FIRM ACCOUNTS MANAGER): Urine culture without growth. Antibiotics DC'd, catheter remains in place. No longer have hematuria or blood in diaper Assessment & Plan (04/29/2024 1:47 PM PROMOTIONS FIRM ACCOUNTS MANAGER): With significant hematuria. Patient has andreia blood coming out around catheter as well as in catheter - patient denies pain. Started on Keflex by emergency department, we will follow-up on urine culture. Encourage staff to monitor for clotting of catheter to avoid retention. Encourage p.o. fluid intake. Nausea and vomiting 04/23/2024 12/10/19 Assessment & Plan (05/11/2024 10:48 AM PROMOTIONS FIRM ACCOUNTS MANAGER): Exam is benign, with leukocytosis, WBC 17.8. Pt has had similar c/o in past with unrevealing workup. Will check UA, Blood cx, CT abd/pel. Influenza/COVID swab neg x 2 (pt with known exposure) Continue reglan 10mg BID, prn zofran. Assessment & Plan (05/10/2024 7:19 PM PROMOTIONS FIRM ACCOUNTS MANAGER): Previous workup for same symptoms was unrevealing, we will increase metoclopramide to 10 mg b.i.d., continue supportive IV fluid. Continue symptomatic Zofran. We will hold nonessential medications including folic acid, ferrous sulfate, multivitamin, vitamin-D. Assessment & Plan (04/23/2024 5:00 PM PROMOTIONS FIRM ACCOUNTS MANAGER): Now resolved, no leukocytosis patient was afebrile, amylase only mildly elevated, lipase within normal limits. GI symptoms have resolved, exam unrevealing. Currently doubt acute cholecystitis, possible biliary colic. Does have some constipation as well and concern for gastroparesis. We will start Reglan 5 mg b.i.d. continue to monitor for dehydration. Tolerated 1 L normal saline well Assessment & Plan (04/23/2024 8:21 AM PROMOTIONS FIRM ACCOUNTS MANAGER): Stat labs ordered to include a CBC, basic metabolic profile, amylase and lipase. IV of normal saline 83 cc/hour x1 L ordered. Given the known presence of cholelithiasis acute cholecystitis is currently the working diagnosis pending further development. Dehydration 04/23/2024 12/09/2024 Assessment & Plan (04/23/2024 8:22 AM PROMOTIONS FIRM ACCOUNTS MANAGER): Her urine output is reduced. She is not eating or drinking secondary to her nausea and vomiting. An IV of normal saline as ordered. We will also continue her scripting of ondansetron. Weakness 04/13/2024 12/08/2024 Elevated LFTs 04/13/2024 12/09/2024 Acute lower urinary tract infection 03/17/2024 04/23/2024 Vitamin D deficiency 02/16/2024 025 Assessment & Plan (08/29/2024 7:57 AM CDT): Continue bgkn-xex-owccufa vitamin-D 3 2000 IU daily Assessment & Plan (02/16/2024 10:15 AM PROMOTIONS FIRM ACCOUNTS MANAGER): Continue labg-fvq-nyvmqvs vitamin-D 3 5000 IU daily Labs ordered COVID-19 02/04/2024 12/09/2024 Assessment & Plan (02/13/2024 1:01 PM PROMOTIONS FIRM ACCOUNTS MANAGER): Completed Antiviral. Off Isolation 02/13. Assessment & Plan (02/12/2024 1:11 PM PROMOTIONS FIRM ACCOUNTS MANAGER): Sx remain mild and stable. Mucinex started 02/10 for congestion. Assessment & Plan (02/09/2024 12:56 PM PROMOTIONS FIRM ACCOUNTS MANAGER): Continue antiviral. Dx 02/03. Assessment & Plan (02/05/2024 12:49 PM PROMOTIONS FIRM ACCOUNTS MANAGER): Continue antiviral with monitoring. Denies sx. WBC elevated which is abnormal. Assessment & Plan (02/04/2024 3:00 PM PROMOTIONS FIRM ACCOUNTS MANAGER): I did not order Paxlovid because of her GFR. Her medical power of computer system validation specialist does request treatment. I have ordered molnupiravir [...] 12/09/2024 Assessment & Plan (02/16/2024 10:14 AM PROMOTIONS FIRM ACCOUNTS MANAGER): CTA of head and neck ordered Assessment & Plan (02/13/2024 1:01 PM PROMOTIONS FIRM ACCOUNTS MANAGER): Her discharging hospitalist notes chronic swelling of [...] understanding. Assessment & Plan (02/02/2024 4:40 PM PROMOTIONS FIRM ACCOUNTS MANAGER): Her discharging hospitalist notes chronic swelling of [...] 02/16/2024 Assessment & Plan (02/03/2024 12:26 PM PROMOTIONS FIRM ACCOUNTS MANAGER): H/o. Continue PT/OT/ST. Flat affect. Pending cognition score from SANFORIZING MACHINE OPERATOR. Assessment & Plan (02/02/2024 4:41 PM PROMOTIONS FIRM ACCOUNTS MANAGER): This is remote, currently stable. Continue aspirin, atorvastatin. Assessment & Plan (11/18/2023 3:02 PM CDT): Place new referral to Neurology Assessment & Plan (10/16/2023 2:36 PM CDT): Refer to neurology Request previous medical records from [facility] in [place], [place] Continue taking baby aspirin Poorly controlled diabetes mellitus 02/08/2014 02/09/2024 Assessment & Plan (10/16/2023 2:36 PM CDT): Increase Lantus to 10 units nightly Restart Jardiance 25 mg Reviewed medications and side effects Refer to endocrinology Dexcom G7 kit ordered F/u in 1 month Anxiety disorder 05/24/2013 10/21/2024 Assessment & Plan (02/16/2024 10:11 AM PROMOTIONS FIRM ACCOUNTS MANAGER): Appointment with Nephrology 03/30 Assessment & Plan (11/18/2023 2:59 PM CDT): Doing well without medication Hyperlipidemia 12/09/2024 Assessment & Plan (08/29/2024 8:03 AM CDT): Chronic and uncontrolled Increase to atorvastatin 80 mg daily Consider Repatha Assessment & Plan (04/23/2024 8:27 AM PROMOTIONS FIRM ACCOUNTS MANAGER): This is a chronic but stable problem. Continue scripting of Crestor, dietary will see and follow. Assessment & Plan (02/16/2024 10:08 AM PROMOTIONS FIRM ACCOUNTS MANAGER): Chronic and stable Continue atorvastatin 80 mg nightly Labs ordered Follow-up in 2 months Assessment & Plan (02/02/2024 4:38 PM PROMOTIONS FIRM ACCOUNTS MANAGER): This is chronic and stable continue atorvastatin [...] Encounters Date Type Department Care Team Description 01/12/2025 Telephone [facility] Medicine Hematology [facility] Floor [address] [place] [address] Susanne Morgan 01/02/2025 Orders Only [facility] [address] [place] [address] Yolanda Damon DNP At risk for aspiration (Primary Dx) 12/21/2024 9:30 AM CDT Therapy [facility] OP Speech Therapy [address] [place] [address] Shadia Clements, GRACE Oropharyngeal dysphagia (Primary Dx); At risk for aspiration 12/10/2024 Telephone [facility] [address] [place] [address] Yolanda Damon DNP 12/08/2024 1:30 PM CDT Office Visit [place] [address] [place] [address] Yolanda Damon DNP Medicare annual wellness visit, subsequent (Primary Dx); History of fall; Dependent for wheelchair mobility; Type 2 diabetes mellitus with hyperglycemia, with long-term current use of insulin ([facility]); Hypertension associated with type 2 diabetes mellitus ([facility]); Type 2 diabetes mellitus with stage 4 chronic kidney disease, without long-term current use of insulin ([facility]); 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); [...] adult 12/06/2024 2:30 PM CDT Office Visit [facility] Gastroenterology at [place] [address] [place] [address] Shannan Fortune NP Personal history of adenomatous and serrated colon polyps (Primary Dx); Constipation, unspecified constipation type; Fecal impaction (HCC) 12/02/2024 3:15 PM CDT Office Visit [facility] Nephrology at [place] [id number] [place] [address] Jass Nicolas MD Stage 4 chronic kidney disease (HCC) (Primary Dx); Hemiplegia and hemiparesis following cerebral infarction affecting right dominant side (I69.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); Essential hypertension; Type 2 diabetes mellitus with diabetic chronic kidney disease, unspecified CKD stage, unspecified whether vp communications insulin use (HCC); History of CVA (cerebrovascular accident); Incomplete bladder emptying; Secondary hyperparathyroidism 11/23/[address] [place] [address] Yolanda Damon DNP 11/22/[address] [place] [address] Yolanda Damon DNP set up established appointment within next week 11/22/[address] [place] [address] Yolanda Damon DNP DME request 11/22/[address] [place] [address] Yolanda Damon DNP Annual Wellness Visit 11/16/2024 2:30 PM CDT Office Visit [facility] Obstetrical Gynecology [address] [place] [phone] Renaldo Armendariz MD Urinary tract infection associated with indwelling urethral catheter, subsequent encounter (Primary Dx); Chronic kidney disease, stage 4 (severe) (HCC); Type 2 diabetes mellitus with hyperglycemia, with long-term current use of insulin (HCC); Urinary retention; Dependent for wheelchair mobility; Cognitive impairment 11/15/2024 8:00 AM CDT Clinical Support [facility] Neuro Psychology [address] [place] [id number] Manuel Jaeger, PhD Major neurocognitive disorder (HCC) (Primary Dx); Generalized anxiety disorder; History of CVA (cerebrovascular accident); Current severe episode of major depressive disorder without psychotic features without prior episode (HCC); Mild cognitive impairment; Decreased social interaction 11/10/[address] [place] [address] Yolanda Damon DNP Medical Question/Miscellaneous 11/04/2024 Orders Only [address] [place] [address] Yolanda Damon DNP 11/02/2024 Telephone [facility] Home Care Services [address] [place] [address] Drive [address] [place] [address] Unknown, Notinfile 11/02/[address] [place] [address] Yolanda Damon DNP [facility] RN request 11/02/2024 Orders Only [address] [place] [address] Yolanda Damon DNP Type 2 diabetes mellitus with hyperglycemia, with long-term current use of insulin (HCC) (Primary Dx); Labile blood glucose; Urinary incontinence, unspecified type; Cognitive impairment; History of fall; Generalized weakness; History of CVA (cerebrovascular accident); Pressure injury of skin of sacral region, unspecified injury stage 10/28/2024 4:00 PM CDT Office Visit [facility] Neurology [facility] [place] [address] Juliana Badillo NP Cerebrovascular accident (CVA), unspecified mechanism (HCC) (Primary Dx); Moderate dementia without behavioral disturbance, psychotic disturbance, mood disturbance, or anxiety, unspecified dementia type (HCC); Contracture of left hand 10/27/2024 Telephone [facility] Urology [address] [facility] [address] [place] [address] Michelle Harp 10/26/2024 11:00 AM CDT Office Visit [address] [place] [address] Yolanda Damon DNP Fecal impaction (HCC) (Primary Dx); Constipation, unspecified constipation type; Cognitive impairment; History of fall; Generalized weakness; Frailty; History of CVA (cerebrovascular accident); Current severe episode of major depressive disorder without psychotic features without prior episode (HCC); Hypertension associated with type 2 diabetes mellitus (HCC); Type 2 diabetes mellitus with hyperglycemia, with long-term current use of insulin (HCC) 10/22/[address] [place] [address] Yolanda Damon DNP needs a follow up appointment 10/21/2024 3:54 PM CDT - 10/21/2024 5:40 PM CDT Emergency [facility] Emergency Department [address] [place] [address] Fecal impaction (HCC) (Primary Dx); Other constipation; Stage 4 chronic kidney disease (HCC) Discharge Disposition: Discharge to home or self care 10/21/2024 11:00 AM CDT Office Visit [address] [place] [address] Yolanda Damon DNP Decreased bowel sounds (Primary Dx); Decreased [...] laterality (HCC) 10/20/2024 1:35 PM CDT Lab [facility] Lab [address] [place] [address] Hypertension associated with type 2 diabetes mellitus (HCC); Chronic kidney disease, stage 4 (severe) (HCC); Type 2 diabetes mellitus with hyperlipidemia (HCC); Chronic diastolic congestive heart failure (HCC); Hyperparathyroidism; Iron deficiency anemia, unspecified iron deficiency anemia type 10/20/2024 Telephone [facility] [address] [place] [address] Yolanda Damon DNP Additional Services Or Orders 10/17/2024 Results Follow-Up [facility] Gastroenterology at [place] [address] [place] [address] Troy Umanzor MD Surgical pathology from Last 3 Months Immunizations Immunization Administration [...] drink = 0.6 oz pur e alcohol) [facility] Utilities Answer Date Recorded In the past 12 months has [employer], gas, oil, or water [employer] threatened to shut off services in your home? No 10/06/2024 Social Connection and Isolation Panel Answer Date Recorded In a typical week, how many times do you talk on the phone with family, friends, or neighbors? Twice a week 10/06/2024 How often do you get together with friends or re latives? Once a week 10/06/2024 How often do you attend adventism or anabaptist serv ices? Never 10/06/2024 Do you belong to any clubs o r organizations such as adventism groups, unions, fraternal or athletic groups, or [...] any time in the past 12 m [facility], were you homeless or living in a penitentiary (including now)? No 10/06/2024 AUDIT-C Answer Date [...] CDT Gender Identity Female 03/07/2024 1:44 PM [employer] MANAGER Sexual Orientation Straight 03/07/2024 1: 44 PM [employer] ACC[employer]S MANAGER Obstetrics History Para Term AB IAB SAB Ectopic Multiple Livin g Live Births [birth year] Date Outcome GA Total Labor Labor/2nd/3rd Weight [...] Additional history exists Lipid Panel 10/20/2025 10/20/2024, 042 08/2024, 03/17/2024, Additional history exists eGFR 10/21/2025 [...] Chronic diastolic congestive heart failure (HCC) Hyperparathyroidism COLONOSCOPY 10/05/2024 8:48 AM CDT HEPATITIS PANEL, ACUTE Routine 04/14/2024 9:43 AM [employer] ACCOUNTS MANAGER ALBUMIN CREATININE RATIO, URINE Routine 03/30/2024 10:54 AM [employer] ACCOUNTS MANAGER Stage 4 chronic kidney disease (HCC) SCREENING [...] Electronically signed by Zachery Murray M.D. KR: WYATT Report ID: [id number] Reading Location: [id number] Procedure Note Zachery Murray MD - 10/21/2024 [...] Electronically signed by Zachery Murray M.D. KR: WYATT Report ID: [id number] Reading Location: [place] [address] Sofi SUAREZ [facility] PROCEDURES Final Result * (ABNORMAL) eGFR [...] was last reviewed 2021. Testing performed by: [address] [address] Blood 10/21/2024 12:5 7 PM CDT 10/21/2024 1:15 PM CDT Sofi SUAREZ LAB BLOOD ORDERABLES Final Resu lt [facility] [address] [place] [address] * (ABNORMAL) Differential, auto (10/21/2024 12:57 PM CDT) Neutrophil abs 5.12 1.50 - 6.50 K/cumm Comment:Testing performed by : [address] [address] Imm gran abs 0.04 0.00 - 0.10 K/cumm NORRIS Comment:Testing performed by : [address] [address] Lymphocyte abs 2.44 0.80 - 3.30 K/cumm NORRIS Comment:Testing performed by : [address] [address] Monocyte abs 1.03(H) 0.20 - 0.80 K/cumm NORIRS Comment:Testing performed by : [address] [address] Eosinophil abs 0.25 0.00 - 0.50 K/cumm NORRIS Comment:Testing performed by : [address] [address] Basophil abs 0.09 0.00 - 0.10 K/cumm NORRIS Comment:Testing performed by : [address] [address] Neutrophil pct 57.1 % NORRIS Comment: Interpretive Data Percent cell count reference ranges are not reported, since discordance with absolute values may lead to misinterpretation of CBC data. Current Interpretive Data was last revised on 2017. Testing performed by: [address] [address] Imm gran pct 0.4 % [facility] Comment: Interpretive Data Percent cell count reference ranges are not reported, since discordance with absolute values may lead to misinterpretation of CBC data. Current Interpretive Data was last revised on 2017. Testing performed by: [address] [address] Lymphocyte pct 27.2 % [facility] Comment: Interpretive Data Percent cell count reference ranges are not reported, since discordance with absolute values may lead to misinterpretation of CBC data. Current Interpretive Data was last revised on 2017. Testing performed by: [address] [address] Monocyte pct 11.5 % [facility] Comment: Interpretive Data Percent cell count reference ranges are not reported, since discordance with absolute values may lead to misinterpretation of CBC data. Current Interpretive Data was last revised on 2017. Testing performed by: [address] [address] Eosinophil pct 2.8 % [facility] Comment: Interpretive Data Percent cell count reference ranges are not reported, since discordance with absolute values may lead to misinterpretation of CBC data. Current Interpretive Data was last revised on 2017. Testing performed by: [address] [address] Basophil pct 1.0 % [facility] Comment: Interpretive Data Percent cell count reference ranges are not reported, since discordance with absolute values may lead to misinterpretation of CBC data. Current Interpretive Data was last revised on 2017. Testing performed by: [address] [address] Blood 10/21/2024 12:5 7 PM CDT 10/21/2024 1:15 PM CDT us Sofi SUAREZ LAB BLOOD ORDERABLES Final Resu lt [facility] [address] Department [place] [address] * (ABNORMAL) CBC with auto differential (10/21/2024 12:57 PM CDT) WBC 8.97 3.80 - 9.90 K/cumm Comment:Testing performed by : [address] [address] Hgb 11.3(L) 11.9 - 15.5 g/dL NORRIS Comment:Testing performed by : [address] [address] Hct 35.4(L) 35.6 - 45.5 % NORRIS Comment:Testing performed by : [address] [address] Plt 248 150 - 400 K/cumm NORRIS Comment:Testing performed by : [address] [address] MPV 11.4 9.1 - 12.3 fL NORRIS Comment:Testing performed by : [address] [address] RBC 3.92 3.90 - 5.20 M/cumm NORRIS Comment:Testing performed by : [address] [address] MCV 90.3 81.3 - 96.4 fL NORRIS Comment:Testing performed by : [address] [address] MCH 28.8 27.1 - 33.3 pg NORRIS Comment:Testing performed by : [address] [address] MCHC 31.9(L) 32.3 - 35.7 g/dL NORRIS Comment:Testing performed by : [address] [address] RDW CV 16.4(H) 11.1 - 14.9 % NORRIS Comment:Testing performed by : [address] [address] RDW SD 54.2(H) 35.7 - 48.1 fL NORRIS Comment:Testing performed by : [address] [address] NRBC abs 0.00 0.00 - 0.01 K/cumm NORRIS Comment:Testing performed by : [address] [address] Blood Venous blood specimen / Unknown 10/21/2024 12:57 PM CDT 10/21/2024 1:15 PM CDT Sofi Fransisco DE LAB BLOOD ORDERABLES Final Resu lt Performing Organization Address [facility] Co de Phone Number NORRIS [address] [place] [address] * Lipase (10/21/2024 12:57 PM CDT) Pathologist [facility] Lipase 27 10 - 99 Units/L Comment:Testing performed by : [address] [address] Blood Venous blood specimen / Unknown 10/21/2024 12:57 PM CDT 10/21/2024 1:15 PM CDT Sofi SUAREZ LAB BLOOD ORDERABLES Final Resu lt Performing Organization Address [facility] de Phone Number [address] [address] * (ABNORMAL) Comprehensive metabolic panel (10/21/2024 12:57 PM CDT) Pathologist [facility] Sodium 143 135 - 145 mmol/L Comment:Testing performed by : [address] [address] Potassium, pl 3.9 3.3 - 4.9 mmol/L NORRIS BOWMAN Comment:Testing performed by : [address] [address] Chloride 103 97 - 110 mmol/L NORRIS BOWMAN Comment:Testing performed by : [address] [address] CO2 28 22 - 32 mmol/L NORRSI BOWMAN Comment:Testing performed by : [address] [address] Anion gap 12 2 - 15 mmol/L NORRIS Comment:Testing performed by : [address] [address] BUN 49(H) 6 - 25 mg/dL NORRIS Comment:Testing performed by : [address] [address] Creatinine 2.30(H) 0.60 - 1.10 mg/dL NORRIS Comment:Testing performed by : [address] [address] Glucose 190 70 - 199 mg/dL NORRIS [...] was last revised 2022. Testing performed by: [address] [address] Calcium 10.0 8.5 - 10.3 mg/dL NORRIS Comment:Testing performed by : [address] [address] Bilirubin, total 0.3 0.1 - 1.2 mg/dL NORRIS Comment:Testing performed by : [address] [address] Protein, pl 8.2 6.5 - 8.5 g/dL NORRIS Comment:Testing performed by : [address] [address] Albumin 3.8 3.5 - 5.0 g/dL NORRIS Comment:Testing performed by : [address] [address] Alk phos 93 40 - 130 Units/L NORRIS Comment:Testing performed by : [address] [address] ALT 16 7 - 45 Units/L NORRIS Comment:Testing performed by : [address] [address] AST 19 10 - 45 Units/L NORRIS Comment:Testing performed by : [address] [address] Blood 10/21/2024 12:5 7 PM CDT 10/21/2024 1:15 PM CDT Sofi SUAREZ LAB BLOOD ORDERABLES Final Resu lt Performing Organization Address [facility]/ZIP Co de Phone Number [address] [place] [address] * POCT glucose (10/21/2024 12:56 PM CDT) [facility] Glucose, POC 177 70 - 199 mg/dL Comment:Testing performed by : [address] [address] Blood 10/21/2024 12:5 6 PM CDT 10/21/2024 12:56 PM CDT us Notinfile Unknown LAB POCT ORDERABLES - DEVICE F inal Result Performing Organization Address [facility] Co de Phone Number [address] [address] * (ABNORMAL) eGFR (10/20/2024 1:43 PM CDT) [facility] eGFR 23(L) >=60 mL/min/1. 73 m2 Comment: [...] was last reviewed 2021. Testing performed by: [address] [address] Blood 10/20/2024 1:43 PM CDT 10/20/2024 1:54 PM CDT us Yolanda Damon [facility] LAB BLOOD ORDERABLE S Final Result NORRIS [address] Department [place] [address] * (ABNORMAL) Differential, auto (10/20/2024 1:43 PM CDT) Neutrophil abs 3.24 1.50 - 6.50 K/cumm Comment:Testing performed by : [address] [address] Imm gran abs 0.03 0.00 - 0.10 K/cumm NORRIS Comment:Testing performed by : [address] [address] Lymphocyte abs 2.23 0.80 - 3.30 K/cumm NORRIS Comment:Testing performed by : [address] [address] Monocyte abs 0.86(H) 0.20 - 0.80 K/cumm NORRIS Comment:Testing performed by : [address] [address] Eosinophil abs 0.24 0.00 - 0.50 K/cumm NORRIS Comment:Testing performed by : [address] [address] Basophil abs 0.06 0.00 - 0.10 K/cumm NORRIS Comment:Testing performed by : [address] [address] Neutrophil pct 48.6 % [facility] Comment: Interpretive Data Percent cell count reference ranges are not reported, since discordance with absolute values may lead to misinterpretation of CBC data. Current Interpretive Data was last revised on 2017. Testing performed by: [address] [address] Imm gran pct 0.5 % [facility] Comment: Interpretive Data Percent cell count reference ranges are not reported, since discordance with absolute values may lead to misinterpretation of CBC data. Current Interpretive Data was last revised on 2017. Testing performed by: [address] [address] Lymphocyte pct 33.5 % [facility] Comment: Interpretive Data Percent cell count reference ranges are not reported, since discordance with absolute values may lead to misinterpretation of CBC data. Current Interpretive Data was last revised on 2017. Testing performed by: [address] [address] Monocyte pct 12.9 % [facility] Comment: Interpretive Data Percent cell count reference ranges are not reported, since discordance with absolute values may lead to misinterpretation of CBC data. Current Interpretive Data was last revised on 2017. Testing performed by: [address] [address] Eosinophil pct 3.6 % [facility] Comment: Interpretive Data Percent cell count reference ranges are not reported, since discordance with absolute values may lead to misinterpretation of CBC data. Current Interpretive Data was last revised on 2017. Testing performed by: [address] [address] Basophil pct 0.9 % [facility] Comment: Interpretive Data Percent cell count reference ranges are not reported, since discordance with absolute values may lead to misinterpretation of CBC data. Current Interpretive Data was last revised on 2017. Testing performed by: [address] [address] Blood 10/20/2024 1:43 PM CDT 10/20/2024 1:54 PM CDT us Yolanda Monterroso [facility] LAB BLOOD ORDERABLE S Final Result Performing Organization Address [facility] Co de Phone Number [place] [phone] [place] [address] * Iron profile w/ IBC (10/20/2024 1:43 PM CDT) [facility] Iron 49 35 - 145 mcg/dL Comment:Testing performed by : [address] [address] TIBC 251 250 - 400 mcg/dL NORRIS Comment:Testing performed by : [address] [address] Transferrin saturation 20 20 - 50 % NORRIS Comment:Testing performed by : [address] [address] Blood 10/20/2024 1:43 PM CDT 10/20/2024 1:54 PM CDT [facility] Kriss [facility] LAB BLOOD ORDERABLE S Final Result Performing Organization Address [facility] Co de Phone Number [place] [phone] [facility] [place] [address] * (ABNORMAL) CBC with auto differential (10/20/2024 1:43 PM CDT) [facility] WBC 6.66 3.80 - 9.90 K/cumm Comment:Testing performed by : [address] [address] Hgb 10.5(L) 11.9 - 15.5 g/dL NORRIS BOWMAN Comment:Testing performed by : [address] [address] Hct 32.4(L) 35.6 - 45.5 % NORRIS BOWMAN Comment:Testing performed by : [address] [address] Plt 242 150 - 400 K/cumm NORRIS BOWMAN Comment:Testing performed by : [address] [address] MPV 11.1 9.1 - 12.3 fL NORRIS BOWMAN Comment:Testing performed by : [address] [address] RBC 3.67(L) 3.90 - 5.20 M/cumm NORRIS BOWMAN Comment:Testing performed by : [address] [address] MCV 88.3 81.3 - 96.4 fL NOR[facility]IS Comment:Testing performed by : [address] [address] MCH 28.6 27.1 - 33.3 pg NORRIS Comment:Testing performed by : [address] [address] MCHC 32.4 32.3 - 35.7 g/dL NORRIS Comment:Testing performed by : [address] [address] RDW CV 16.2(H) 11.1 - 14.9 % NORRIS Comment:Testing performed by : [address] [address] RDW SD 52.9(H) 35.7 - 48.1 fL [facility]IS Comment:Testing performed by : [address] [address] NRBC abs 0.00 0.00 - 0.01 K/cumm NORRIS Comment:Testing performed by : [address] [address] Blood 10/20/2024 1:43 PM CDT 10/20/2024 1:54 PM CDT us Yolanda Damon [facility] LAB BLOOD ORDERABLE S Final Result [facility] [address] Department [place] [address] * (ABNORMAL) Hemoglobin A1c (10/20/2024 1:43 PM CDT) Hgb A1C 8.2(H) 4.0 - 5.6 % Comment:Testing performed by : [address] [address] Estimated Average Glucose 189 mg/dL NORRIS BOWMAN Comment: The ADA recommends reporting an estimated Average Glucose (eAG) with all Hemoglobin A1c results using the equation derived from a study of 507 normal and diabetic adults. Minority populations were underrepresented and children were not included. (Diabetes Care 31:0370-2517, 2008). The eAG is not equivalent to a fasting glucose. Testing performed by: [facility], [address] [place] [address]., [address] Blood 10/20/2024 1:43 PM CDT 10/20/2024 1:54 PM CDT us Yolanda Damon [facility] LAB BLOOD ORDERABLE S Final Result NORRIS BOWMAN [address] Department [place] [address] * Lipid panel (10/20/2024 1:43 PM CDT) [facility] Cholesterol 186 30 - 199 mg/dL Comment: [...] last revised on 2017. Testing performed by: [facility], [address] [place] [address]., [address] Triglycerides 93 <=149 mg/dL NORRIS BOWMAN Comment: Interpretive Data Ages < or = [...] last revised on 2017. Testing performed by: [address] [address] HDL 46 >=40 mg/dL NORRIS Comment: Interpretive [...] last revised on 2017. Testing performed by: [address] [address] LDL, calculated 123 <=129 mg/dL NORRIS Comment: [...] last revised on 2023. Testing performed by: [address] [address] Non-HDL Cholesterol 140 mg/dL NORRIS Comment: Interpretive [...] last revised on 2017. Testing performed by: [address] [address] Chol/HDL ratio 4 NORRIS Comment:Testing performed by : [address] [address] Blood 10/20/2024 1:43 PM CDT 10/20/2024 1:54 PM CDT Yolanda Damon [facility] LAB BLOOD ORDERABLE S Final Result [facility] [address] Department of Laboratories [place], [place] [id number] * (ABNORMAL) Comprehensive metabolic panel (10/20/2024 1:43 PM CDT) Sodium 141 135 - 145 mmol/L Comment:Testing performed by : [address] [address] Potassium, pl 3.8 3.3 - 4.9 mmol/L NORRIS Comment:Testing performed by : [address] [address] Chloride 102 97 - 110 mmol/L NORRIS Comment:Testing performed by : [address] [address] CO2 28 22 - 32 mmol/L NORRIS Comment:Testing performed by : [address] [address] Anion gap 11 2 - 15 mmol/L NOR[facility]IS Comment:Testing performed by : [address] [address] BUN 46(H) 6 - 25 mg/dL NORRIS Comment:Testing performed by : [address] [address] Creatinine 2.30(H) 0.60 - 1.10 mg/dL NOR[facility]IS Comment:Testing performed by : [address] [address] Glucose 226(H) 70 - 199 mg/dL [facility] Comment: Interpretive Data Fasting glucose >/= 126 [...] was last revised 2022. Testing performed by: [address] [address] Calcium 9.3 8.5 - 10.3 mg/dL [facility] Comment:Testing performed by : [address] [address] Bilirubin, total 0.2 0.1 - 1.2 mg/dL [facility] Comment:Testing performed by : [address] [address] Protein, pl 7.6 6.5 - 8.5 g/dL [facility] Comment:Testing performed by : [address] [address] Albumin 3.6 3.5 - 5.0 g/dL [facility] Comment:Testing performed by : [address] [address] Alk phos 97 40 - 130 Units/L [facility] Comment:Testing performed by : [address] [address] ALT 17 7 - 45 Units/L [facility] Comment:Testing performed by : [address] [address] AST 17 10 - 45 Units/L [facility] Comment:Testing performed by : [facility], [address] [place] [address]., [address] Blood 10/20/2024 1:43 PM CDT 10/20/2024 1:54 PM CDT us Yolanda Damon DNP LAB BLOOD ORDERABLE S Final Result [facility] [address] Department [place] [address] * Colonoscopy (10/05/2024 8:48 AM CDT) Anatomical Region Laterality Modality Other Narrative Procedure Note Troy Umanzor MD - 10/05/2024 8:48 AM CDT [facility] GI ENDOSCOPY Patient Name: Sally South Procedure Date: 10/05/2024 8:48 AM Date of : 1955 Admit Type: Outpatient Age: 69 Gender: Female Attending MD: Troy Umanzor M.D. Room: [facility] ENDOSCOPY ROOM 04 Note Status: Finalized Procedure: [...] The scope was passed under direct vision.The [id number]-[id number] colonoscope was introduced through theanus and advanced [...] On: 10/05/2024 8:48 AM Recognized by the [employer] for promoting quality in endoscopy Troy Umanzor MD ENDOSCOPY PROCEDURES Juliana l Result * Hepatitis panel, acute Blood (04/14/2024 9:43 AM [employer]OUNTS MANAGER) Hep A IgM Nonreactive Nonreactive Comment: Interpretive Data: If Hep A IgM Ab is reported as Equivocal, a new sample should be drawn in two weeks for testing. Current interpretive data was last revised on 19. Hep B core IgM Nonreactive Nonreactive [facility] Comment: Interpretive Data If HepB Core IgM Ab is reported as Equivocal, a new sample should be drawn in two weeks for testing. Current interpretive data was last revised on 19. Hep C Ab Nonreactive Nonreactive [facility] Comment: Antibodies to HCV not detected. [...] last revised on 2019. HepBsAg Nonreactive Nonreactive [facility] Blood 04/14/2024 9:43 AM [employer] ACCOUNTS MANAGER 04/14/2024 12:26 PM [employer]OUNTS MANAGER China shukla MD LAB MICROBIOLOGY - GENERAL ORDERABLES Final Result Performing Organization Address [facility] de Phone Number [address] [place] [address] * (ABNORMAL) Albumin Creatinine Ratio, Urine (03/30/2024 10:54 AM [employer] ACCOUNTS MANAGER) Albumin Ur 4,121.0 mg/L Comment: Interpretive Data No reference range established. Current interpretive data was last revised 2018. Creatinine Ur 89.2 mg/dL [facility] Comment: Interpretive Data No reference range established. Current interpretive data was last revised 2018. Albumin Creatinine Ratio, Ur 4,620(H) 1 - 29 mg/g [facility] Urine 03/30/2024 10:5 4 AM [employer] MANAGER 03/30/2024 11:15 AM [employer] ACCOUNTS MANAGER Narrative [facility] - 03/30/2024 11:56 AM [employer] ACC[employer]S MANAGER patient urine specimen was collected from patient catheter Jass Nicolas MD LAB URINE ORDERABLES Final Resu lt Performing Organization Address [facility] de Phone Number [address] [address] * SCREENING MAMMOGRAM BILATERAL W JAI (12/15/2023 [...] age 41, based on guidelines of the [employer] (ACR Practice Parameter for the Performance of Screening and Diagnostic Mammography) and [employer]. For women [...] are definitely seen in either breast. 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 07/24/2024 Insurance [facility] [employer] [facility] Address: [address] [address] MEDICARE [employer] [facility] Address: [address] [place] [phone] Advance Directives For more information, please contact: [phone] Documents on File Type Date Recorded Patient Ship Steward Expl anation ADVANCE DIRECTIVE 04/28/2024 3:01 PM [...] selected below: No intubationNo cardioversion Care Teams Usability Specialist Relationship Specialty Start Date End Date Yolanda Damon DNP [address] [place] [address] PCP - General Family Medicine 10/16/23 Maritza Do NP [address] [place] [address] Nurse Practitioner Urology 03/23/24 Michelle Cao, [address] [place] [address] [employer] Manager 10/04/24
--- NOTE | 2025-01-17 07:18 | WPDHPUPDATE1 ---
History and Physical Update Update Date/Time: 01/17/25 07:18 History and Physical has been reviewed, including an updated exam of the patient. There are NO changes in the patient's condition. Risks, benefits, and alternatives have been discussed and questions answered. Patient agrees to proceed with procedure.
[2025-01-17] MEDS: LACTATED RINGERS 1,000 ML 30 ML IV CONT (11:21)
--- NOTE | 2025-01-17 11:35 | WPDANESEPPF ---
Anes - Initial Pre Proc Eval Procedure: Operation Date: 01/17/25 12:15 Proposed Procedures p Cystoscopy, Insertion Suprapubic Tube - Austen Hartman MD Date/Time: 01/17/25 11:35 Surgeon: Austen Hartman MD Pre Op Diagnosis: urinary retention Patient Data Age: 69 Gender: F Height: 1.7 m Weight: 50.6 kg Last Vital Signs Temp 36.8 C 01/17/25 11:18 Pulse 81 01/17/25 11:18 BP 170/61 H 01/17/25 11:18 Pulse Ox 99 01/17/25 11:18 O2 Del Method Room Air 01/17/25 11:18 Allergies Allergy/AdvReac Type Severity Reaction Status Date / Time No Known Allergies Allergy Verified 01/17/25 11:04 Home Medications ?Medication ?Instructions ?Recorded ?Confirmed ?Type amlodipine 10 mg tablet 10 mg PO DAILY 12/24/24 01/17/25 History aspirin 81 mg chewable tablet 1 tablet PO DAILY 12/24/24 01/06/25 History Held on 12/31/24. Instructions: Resume on 01/02/25. atorvastatin 20 mg tablet 80 mg PO QPM 12/24/24 01/06/25 History bupropion HCl 150 mg 24 hr tablet, 150 mg PO DAILY 12/24/24 01/17/25 History extended release calcitriol 0.25 mcg capsule 0.25 mcg PO 3XW 12/24/24 01/06/25 History cholecalciferol (vitamin D3) 50 2,000 unit PO DAILY 12/24/24 01/06/25 History mcg (2,000 unit) capsule doxazosin 8 mg tablet 8 mg PO HS 12/24/24 01/06/25 History dulaglutide 0.75 mg/0.5 mL 0.75 mg subcut WEEKLY 12/24/24 01/06/25 History subcutaneous pen injector (Trulicity) ferrous sulfate 325 mg (65 mg 325 mg PO DAILY 12/24/24 01/06/25 History iron) tablet furosemide 40 mg tablet 40 mg PO DAILY 12/24/24 01/06/25 History gabapentin 300 mg capsule 300 mg PO HS 12/24/24 01/06/25 History insulin lispro 100 unit/mL 1 sliding scale dose subcut 12/24/24 History subcutaneous pen metoclopramide HCl 5 mg tablet 10 mg PO BID 12/24/24 01/06/25 History metoprolol tartrate 50 mg tablet 50 mg PO Q12H 12/24/24 01/17/25 History multivitamin (Daily Value tablet) 1 tablet PO DAILY 12/24/24 01/06/25 History sertraline 100 mg tablet 100 mg PO HS 12/24/24 01/06/25 History spironolactone 25 mg tablet 50 mg PO Q12H 12/24/24 01/06/25 History tramadol 50 mg tablet 50 mg PO Q6H PRN pain #10 tabs 12/31/24 01/06/25 Rx Laboratory Tests 01/17/25 10:38 POC Capillary Glucose 131 H mg/dl (65-105) Patient hx anesthesia problems: none Family hx anesthesia problems: none Results Review: All pre-operative results and documents have been reviewed as part of the pre-operative evaluation. [facility] Social History Social History Smoking status: Never smoker Living arrangements: with family Spiritual care concerns: No Anes - Eval Final PreProcedure Day of Procedure 01/17/25 11:35 Patient weight: normal Heart: regular rate and rhythm Lungs: clear to auscultation Airway: Mallampati scale class II Neurological: alert and oriented ASA classification: IV Emergent: no Anesthetic plan: proceed Anesthesia type and monitoring: general ETT and standard monitoring Results Review: All pre-operative results and documents have been reviewed as part of the pre-operative evaluation. Informed Consent: The patient's anesthetic plan and its attendant risks and benefits were discussed with the patient/family/POA. Questions were solicited and answers provided to the satisfaction of the patient/family/POA.
[2025-01-17] MEDS: ceFAZolin 2 GM in SODIUM CHLORIDE 0.9% IV 50 ML 100 ML IVPB (12:18)
[2025-01-17] MEDS: LIDO 1%/EPINEPHRINE 1:100,000 50 ML VIAL (12:43)
--- NOTE | 2025-01-17 12:56 | W.PM.PROC2 ---
Procedure Note - Detailed Date of Procedure 01/17/25 Pre-op Diagnosis Incomplete bladder emptying Urinary retention Flaccid neurogenic bladder Post-op Diagnosis Same Procedure Performed Cystoscopy with placement of suprapubic catheter Surgeon Austen Hartman MD Anesthesia General and Local Indications She has incomplete bladder emptying and flaccid neurogenic bladder. She has functional incontinence. She is status post stroke. She has had recurrent infections. She has had a Wise catheter for several weeks now. She presents for suprapubic tube. Pre treated with antibiotics Findings Uncomplicated suprapubic tube placement Description of Procedure She was correctly identified. Informed consent was obtained. She was brought to the operating room. She was given general anesthesia. She was placed in the lithotomy position in Trendelenburg. Lower abdomen and genitalia were prepped and draped sterile fashion. Time-out performed. Cystoscopy revealed normal-appearing bladder. Minimal trabeculations. Ureteral orifices were normal. I filled the bladder. I ensured she was in Trendelenburg. I chose a site 2 cm above the pubic bone. I anesthetized the skin. I used a finer needle tip in the bladder. I made a skin davina. I placed a wire through the needle. I used the dilating sheath to dilate the tract. I then placed the suprapubic tube introducer sheath. A 16 [place] catheter was placed over wire. There was no evidence of significant bleeding. The catheter was secured to the skin with silk suture. The system was placed to gravity drainage. She was awakened transferred to PACU in stable condition. Estimated Blood Loss 1 Drains Yes (Suprapubic tube) Packing No Pathology None sent Complications No immediate complications Condition Stable
[2025-01-17] MEDS: oxyCODONE HCL (*CRX) 5 MG TAB IR PO (14:28)
== END 2025-01-17 14:57 | disposition home or self-care (01) ==
PROVIDERS: Visit Provider Urology
PROC: 0T9B30Z Drainage of Bladder with Drainage Device, Percutaneous Approach (ICD-10-PCS; CPT 51102; principal; 2025-01-17 12:15)
DX: R39.81 Functional urinary incontinence (principal); N32.89 Other specified disorders of bladder; Z79.82 Long term (current) use of aspirin; Z79.85 Long-term (current) use of injectable non-insulin antidiabetic drugs; Z79.4 Long term (current) use of insulin; Z79.891 Long term (current) use of opiate analgesic; Z86.73 Personal history of transient ischemic attack (TIA), and cerebral infarction without residual deficits
CPT/HCPCS: 51102; 82948; J0690; A9270; C2627; J2003; J2004; J2405; J2704; J3010; J7030; J7120